=== PATIENT | female | born 1995 | race Caucasian/White ===

== ENCOUNTER 2019-04-07 07:57 | Outpatient (CLI) | payer MEDICAID, SELFPAY ==
--- NOTE | 2019-04-07 08:20 | CT_ITS ---
WS: [id number] CT ABDOMEN AND PELVIS NONCONTRAST HISTORY: LUQ PAIN TECHNIQUE: Imaging performed through the abdomen and pelvis. Coronal and sagittal reformats are submi tted. All CT scans at [facility] use at least one of these dose optimization techniques: automated exposure control; mA and/or kV adjustment per patient size (includes targeted exams where d ose is matched to clinical indication); or iterative reconstruction. DLP: 1185.65 mGycm COMPARISON: None available. Lower thorax: Lung bases are clear. No hiatal hernia. Liver: Normal size liver with mild hepatic steatosis. No bile duct dilatation. Gallbladder: Unremarkable. Pancreas: Normal. Spleen: Normal. Adrenal glands: Normal. Right kidney: Normal size with no stones, masses or atrophy. Left kidney: Normal size with no stones, mass or atrophy. Abdominal aorta and IVC are unremarkable. No free fluid, intraperitoneal air or significant lymphadenopathy. GI tract: Unremarkable. Abdominal wall: Fat-containing umbilical hernia. Pelvis: Normal. Osseous structures: Unremarkable. No fluid or adenopathy. Uterus and ovaries are negative. CT/CT abdomen pelvis wo con [id number] IMPRESSION: 1. No acute abdominal or pelvic abnormalities. 2. Mild hepatic steatosis. 3. No LEFT upper quadrant abnormality.
[2019-04-07] MEDS: iohexol 300 mg/mL 50 mL Btl IV (10:03)
== END 2019-04-07 07:58 | disposition home or self-care (01) ==
LOC: RADWPI 07:59
PROVIDERS: PCP Family Medicine; Visit Provider Family Medicine
DX: K76.0 Fatty (change of) liver, not elsewhere classified (principal); R10.12 Left upper quadrant pain
CPT/HCPCS: 74176

== ENCOUNTER 2019-05-20 18:34 | Emergency (ER) | payer MEDICAID, SELFPAY ==
[2019-05-20 18:38] VITALS: BP 113/92; PULSE 114; RESP 20; TEMP 37.8; O2SAT 99; BMI 52.9
== END 2019-05-20 20:24 | disposition left against medical advice (07) ==
PROVIDERS: Emergency Provider Family Medicine; PCP Family Medicine
DX: R05 Cough (principal); M79.10 Myalgia, unspecified site; R06.02 Shortness of breath; M54.6 Pain in thoracic spine; F17.200 Nicotine dependence, unspecified, uncomplicated; Z53.21 Procedure and treatment not carried out due to patient leaving prior to being seen by health care provider
CPT/HCPCS: 99281

== ENCOUNTER → 2019-06-18 15:25 | Outpatient (BNVA) | payer MEDICAID, SELFPAY | PROVIDERS: PCP Family Medicine; Visit Provider Counselor Professional | DX: F60.3 Borderline personality disorder (principal); F43.12 Post-traumatic stress disorder, chronic | CPT/HCPCS: 90834 ==

== ENCOUNTER → 2019-06-25 08:16 | Outpatient (BNVA) | payer MEDICAID, SELFPAY | PROVIDERS: PCP Family Medicine; Visit Provider Counselor Professional | DX: F60.3 Borderline personality disorder (principal); F43.12 Post-traumatic stress disorder, chronic | CPT/HCPCS: 90834 ==

== ENCOUNTER → 2019-06-29 08:19 | Outpatient (BNVA) | payer MEDICAID, SELFPAY | PROVIDERS: PCP Family Medicine; Visit Provider Nurse Practitioner Psychiatric/Mental Health | DX: F43.12 Post-traumatic stress disorder, chronic (principal); F60.3 Borderline personality disorder; F25.0 Schizoaffective disorder, bipolar type | CPT/HCPCS: 99213 ==

== ENCOUNTER → 2019-07-28 13:28 | Outpatient (BNVA) | payer MEDICAID, SELFPAY | PROVIDERS: PCP Family Medicine; Visit Provider Nurse Practitioner Women's Health | DX: Z32.00 Encounter for pregnancy test, result unknown (principal); N64.4 Mastodynia | CPT/HCPCS: 81025 ==

== ENCOUNTER → 2019-08-10 07:59 | Outpatient (BNVA) | payer MEDICAID, SELFPAY | PROVIDERS: PCP Family Medicine; Visit Provider Nurse Practitioner Psychiatric/Mental Health | DX: F60.3 Borderline personality disorder | CPT/HCPCS: 90834; 99212 ==

== ENCOUNTER → 2019-08-19 08:23 | Outpatient (BNVA) | payer MEDICAID, SELFPAY | PROVIDERS: PCP Family Medicine; Visit Provider Counselor Professional | DX: F60.3 Borderline personality disorder (principal); F43.12 Post-traumatic stress disorder, chronic | CPT/HCPCS: 90834 ==

== ENCOUNTER → 2019-08-31 13:01 | Outpatient (BNVA) | payer MEDICAID, SELFPAY | PROVIDERS: PCP Family Medicine; Visit Provider Nurse Practitioner Psychiatric/Mental Health | DX: F60.3 Borderline personality disorder (principal); F43.12 Post-traumatic stress disorder, chronic; R45.89 Other symptoms and signs involving emotional state | CPT/HCPCS: 99212 ==

== ENCOUNTER → 2019-09-18 08:09 | Outpatient (BNVA) | payer MEDICAID, SELFPAY | PROVIDERS: PCP Family Medicine; Visit Provider Psychiatry & Neurology Psychiatry | DX: F43.12 Post-traumatic stress disorder, chronic (principal); F60.3 Borderline personality disorder; F33.1 Major depressive disorder, recurrent, moderate | CPT/HCPCS: 99214 ==

== ENCOUNTER → 2019-10-05 09:32 | Outpatient (BNVA) | payer MEDICAID, SELFPAY | PROVIDERS: PCP Family Medicine; Visit Provider Obstetrics & Gynecology | DX: Z20.2 Contact with and (suspected) exposure to infections with a predominantly sexual mode of transmission (principal); N39.3 Stress incontinence (female) (male) | CPT/HCPCS: 86592; 87491; 87591; 87806 ==

== ENCOUNTER 2019-11-05 16:09 | Emergency (ER) | payer MEDICAID, SELFPAY ==
[2019-11-05 16:14] VITALS: PULSE 104; RESP 18; TEMP 36.8; O2SAT 95; BMI 51.0
--- NOTE | 2019-11-05 16:37 | ED_ITS ---
HPI - General Adult General: Chief complaint: Abdominal Pain Stated complaint: back/chest pain Time Seen by Provider: 11/05/19 16:31 History of Present Illness: HPI narrative: Patient states she feels much better now. Said no pressure was going on but she had some pain radiating from the her backside to her up to her right breast on the outside. After further conversation patient she was riding a zip line type thing at the park yesterday hanging on that and she felt maybe she pulled something. Onset (ago): hour(s) Radiation: other (Right breast) Severity: mild Severity scale (1-10): 3 Quality: stabbing Pain Consistency: now resolved Relieving factors: none Exacerbating factors: movement Associated symptoms: Reports no associated symptoms; Deny chest pain, dyspnea, headache(s), nausea, rash or vomiting Review of Systems Const: Denies: fever(s), chills or body aches Eyes: Denies: change in vision or blurry vision ENMT: Denies: throat pain or nasal congestion Card: Denies: chest pain or dyspnea on exertion Resp: Denies: dyspnea, productive cough or non-productive cough GI: Denies: abdominal pain, nausea or vomiting Musc: Reports: other (Complains of muscle like pain radiating from the right back around to the right breast area with movement range of motion patient was riding a zip line type contraption yesterday and felt maybe she pulled something says she actually feels better now that she is back in the room here.); Denies: extremity pain Skin/Breast: Denies: rash Neuro: Denies: headache(s) Psych: Denies: anxiety or depression Sonido/Lymph: Denies: easy bruising PFSH ED PFSH: Medical History (Updated 10/05/19 @ 09:34 by Dalton Arambula MD) ADHD Anxiety with depression Breast pain in female Dysphoric mood Genital warts Surgical History (Updated 10/08/19 @ 19:11 by Dalton Arambula MD) No pertinent past surgical history Family History Grandmother Hypertension Maternal grandmother Denies family history of Colon cancer Ovarian cancer Diabetes Heart disease Hyperlipidemia Breast cancer Family history of thyroid problem Uterine cancer Stroke Social History Smoking and tobacco status: current every day smoker cigarettes Packs smoked per day: 0.5 Alcohol intake: current Other details last substance use: Denies drug use. Physical Exam Chest: OTHER: Patient has some muscle wall tenderness from the right below scapula and right side around to the breast area no signs of rash shingles that type thing. Cardio: COMMON NORMALS: regular rate and regular rhythm RATE: regular rate RHYTHM: regular rhythm GI: COMMON NORMALS: Normal to inspection, nondistended, normoactive bowel sounds present (Obese) Course 2 Vital Signs: Vital signs: Vital Signs Temperature 98.2 F 11/05/19 16:14 Pulse Rate 104 H 11/05/19 16:14 Respiratory Rate 18 11/05/19 16:14 Pulse Oximetry 95 11/05/19 16:14 Coding Level of Care Code ED Associate Sales Manager for Eleanor Mcnamara
[2019-11-05] MEDS: HYDROcodone-acetaminophen 5-325 mg Tablet 1 TAB PO (16:42)
[2019-11-05] MEDS: ketorolac 60 mg/2 mL INJ IM (16:45)
[2019-11-05] MEDS: methylPREDNISolone (DEPO) 80 MG/ML INJ 1 mL IM (16:45)
[2019-11-05 17:24] VITALS: BP 109/60; PULSE 75; RESP 16; O2SAT 98
== END 2019-11-05 17:28 | disposition home or self-care (01) ==
PROVIDERS: Emergency Provider Nurse Practitioner Family; PCP Family Medicine
DX: R10.9 Unspecified abdominal pain (principal); F17.210 Nicotine dependence, cigarettes, uncomplicated
CPT/HCPCS: 12345; 96372; 99282; 99283; J1040; J1885

== ENCOUNTER → 2019-11-13 12:40 | Outpatient (BNVA) | payer MEDICAID, SELFPAY | PROVIDERS: PCP Family Medicine; Visit Provider Psychiatry & Neurology Psychiatry | DX: F43.12 Post-traumatic stress disorder, chronic (principal); F60.3 Borderline personality disorder; F33.1 Major depressive disorder, recurrent, moderate | CPT/HCPCS: 99214 ==

== ENCOUNTER → 2019-11-26 07:52 | Outpatient (BNVA) | payer MEDICAID, SELFPAY | PROVIDERS: PCP Family Medicine; Referring Provider Nurse Practitioner Family; Visit Provider Specialist | DX: R56.9 Unspecified convulsions (principal); F17.210 Nicotine dependence, cigarettes, uncomplicated | CPT/HCPCS: 95816 ==

== ENCOUNTER → 2019-12-11 08:25 | Outpatient (BNVA) | payer MEDICAID, SELFPAY | PROVIDERS: PCP Family Medicine; Visit Provider Psychiatry & Neurology Psychiatry | DX: F33.1 Major depressive disorder, recurrent, moderate (principal); F60.3 Borderline personality disorder; F43.12 Post-traumatic stress disorder, chronic | CPT/HCPCS: 99213 ==

== ENCOUNTER → 2019-12-24 08:27 | Outpatient (BNVA) | payer MEDICAID, SELFPAY | PROVIDERS: PCP Family Medicine; Visit Provider Counselor Professional | DX: F33.1 Major depressive disorder, recurrent, moderate (principal); F60.3 Borderline personality disorder; F43.12 Post-traumatic stress disorder, chronic | CPT/HCPCS: 90832 ==

== ENCOUNTER → 2019-12-30 08:59 | Outpatient (BNVA) | payer MEDICAID, SELFPAY | PROVIDERS: PCP Family Medicine; Visit Provider Counselor Professional | DX: F33.1 Major depressive disorder, recurrent, moderate (principal); F60.3 Borderline personality disorder; F43.12 Post-traumatic stress disorder, chronic | CPT/HCPCS: 90834 ==

== ENCOUNTER → 2020-01-06 09:00 | Outpatient (BNVA) | payer MEDICAID, SELFPAY | PROVIDERS: PCP Family Medicine; Visit Provider Counselor Professional | DX: F33.1 Major depressive disorder, recurrent, moderate (principal); F60.3 Borderline personality disorder; F43.12 Post-traumatic stress disorder, chronic | CPT/HCPCS: 90834 ==

== ENCOUNTER → 2020-01-13 08:54 | Outpatient (BNVA) | payer MEDICAID, SELFPAY | PROVIDERS: PCP Family Medicine; Visit Provider Counselor Professional | DX: F33.1 Major depressive disorder, recurrent, moderate (principal); F60.3 Borderline personality disorder; F43.12 Post-traumatic stress disorder, chronic | CPT/HCPCS: 90834 ==

== ENCOUNTER → 2020-02-04 08:01 | Outpatient (BNVA) | payer MEDICAID, SELFPAY | PROVIDERS: PCP Family Medicine; Visit Provider Counselor Professional | DX: F33.1 Major depressive disorder, recurrent, moderate (principal); F60.3 Borderline personality disorder; F43.12 Post-traumatic stress disorder, chronic | CPT/HCPCS: 90832 ==

== ENCOUNTER → 2020-02-17 07:58 | Outpatient (BNVA) | payer MEDICAID, SELFPAY | PROVIDERS: PCP Family Medicine; Visit Provider Counselor Professional | DX: F33.1 Major depressive disorder, recurrent, moderate (principal) | CPT/HCPCS: 90834 ==

== ENCOUNTER → 2020-03-03 07:35 | Outpatient (BNVA) | payer MEDICAID, SELFPAY | PROVIDERS: PCP Family Medicine; Visit Provider Counselor Professional | DX: F33.1 Major depressive disorder, recurrent, moderate (principal); F60.3 Borderline personality disorder; F43.12 Post-traumatic stress disorder, chronic | CPT/HCPCS: 90832 ==

== ENCOUNTER → 2020-03-23 08:12 | Outpatient (BNVA) | payer MEDICAID, SELFPAY | PROVIDERS: PCP Family Medicine; Visit Provider Counselor Professional | DX: F33.1 Major depressive disorder, recurrent, moderate (principal); F60.3 Borderline personality disorder; F43.12 Post-traumatic stress disorder, chronic | CPT/HCPCS: 90834 ==

== ENCOUNTER → 2020-03-31 15:23 | Outpatient (BNVA) | payer MEDICAID, SELFPAY | PROVIDERS: PCP Family Medicine; Visit Provider Counselor Professional | DX: F33.1 Major depressive disorder, recurrent, moderate (principal); F60.3 Borderline personality disorder; F43.12 Post-traumatic stress disorder, chronic | CPT/HCPCS: 90832 ==

== ENCOUNTER → 2020-04-15 08:25 | Outpatient (BNVA) | payer MEDICAID, SELFPAY | PROVIDERS: PCP Family Medicine; Visit Provider Psychiatry & Neurology Psychiatry | DX: F43.12 Post-traumatic stress disorder, chronic (principal); F60.3 Borderline personality disorder; F33.1 Major depressive disorder, recurrent, moderate | CPT/HCPCS: 99214 ==

== ENCOUNTER → 2020-04-20 09:37 | Outpatient (BNVA) | payer MEDICAID, SELFPAY | PROVIDERS: PCP Family Medicine; Visit Provider Counselor Professional | DX: F43.12 Post-traumatic stress disorder, chronic (principal); F60.3 Borderline personality disorder; F33.1 Major depressive disorder, recurrent, moderate | CPT/HCPCS: 90834 ==

== ENCOUNTER → 2020-05-11 09:05 | Outpatient (BNVA) | payer MEDICAID, SELFPAY | PROVIDERS: PCP Family Medicine; Visit Provider Counselor Professional | DX: F43.12 Post-traumatic stress disorder, chronic (principal); F60.3 Borderline personality disorder; F33.1 Major depressive disorder, recurrent, moderate | CPT/HCPCS: 90834 ==

== ENCOUNTER 2020-06-11 19:26 | Emergency (ER) | payer MEDICAID, SELFPAY ==
[2020-06-11 19:40] VITALS: BP 130/90; PULSE 87; RESP 14; TEMP 37.3; O2SAT 97; BMI 51.0
--- NOTE | 2020-06-11 19:51 | W.ED.CHESTPA ---
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 Patient reports drinking very heavily yesterday in which he stopped drinking about midnight. Patient also admits to smoking marijuana. Patient appears intoxicated still. Patient is giggling at the provider. Patient appears in no pain. Patient appears well. Patient states over the last 2 months she has had chest pressure. Patient was concerned that there may be something wrong with her heart. Patient also states that she has been under more stress lately and believes she may have some anxiety that causes this pain. Patient is alert, oriented and cooperative. MD complaint: chest discomfort Review of Systems General: Reports: 10 or more systems reviewed and unremarkable except in HPI and below Card: Reports: chest pain [facility] ED PFSH: Medical History (Updated 06/11/20 @ 21:09 by BRANDYN Spence) ADHD Anxiety with depression Breast pain in female Dysphoric mood Genital warts Surgical History (Updated 10/08/19 @ 19:11 by Dalton Arambula MD) No pertinent past surgical history Family History Grandmother Hypertension Maternal grandmother Denies family history of Colon cancer Ovarian cancer Diabetes Heart disease Hyperlipidemia Breast cancer Family history of thyroid problem Uterine cancer Stroke Social History (Updated 11/13/19 @ 13:13 by Olivier Ray LPN) Smoking and tobacco status: current every day smoker cigarettes Packs smoked per day: 1 Years cigarettes smoked: 4 Quit status (tobacco): has tried quititng Number of times tried to quit tobacco: 2 Second hand smoke exposure: No Smoking risk assessment/counseling performed?: No Alcohol intake: current Other details last substance use: Denies drug use. Female Reproductive History: Date of last menstrual period: 12/18/19 Physical Exam Const: COMMON NORMALS: no acute distress and patient oriented x3 GENERAL APPEARANCE: cooperative HENMT: COMMON NORMALS: normocephalic and Normal external nose present HEAD & SCALP: normal to inspection and normocephalic NOSE: Normal external nose present MOUTH: Normal oral and palatal mucosa present Eye: GENERAL EYE: appearance normal, both eyes and all related structures Neck/C-Spine: COMMON NORMALS: full ROM Chest: COMMONS NORMALS: normal inspection of the chest Resp: COMMON NORMALS: normal respiratory effort EFFORT & INSPECTION: Yes able to speak in complete sentences Cardio: COMMON NORMALS: regular rate and regular rhythm RATE: regular rate RHYTHM: regular rhythm GI: COMMON NORMALS: non-tender Back/Pelvis: COMMON NORMALS: thoracic and lumbar spine normal to inspection Extremity: COMMON NORMALS: normal to inspection Neuro: COMMON NORMALS: patient oriented x3 and moves all extremities Psych: COMMON NORMALS: mental status grossly normal and cooperative Skin: COMMON NORMALS: no rashes or lesions noted GENERAL SKIN EXAM: no rashes or lesions noted Course Vital Signs: Vital signs: Vital Signs Temperature 99.2 F 06/11/20 19:40 Pulse Rate 87 06/11/20 19:40 Respiratory Rate 14 06/11/20 19:40 Blood Pressure 130/90 06/11/20 19:40 Pulse Oximetry 97 06/11/20 19:40 MDM - Chest Pain MDM Narrative: Medical decision making narrative: Patient comes in for concerns of chest discomfort. Patient had become intoxicated last night with heavy drinking and marijuana use. Patient comes in today with complaints of discomfort to her chest. Patient states that she has had this discomfort on and off for the last 2 months. Patient does have a history of major depression and anxiety. Patient appears well. Patient appears mildly dehydrated. Oral mucosa is mildly dry. Abdomen soft nontender. Skin is warm and dry. Differential diagnosis includes not limited to anxiety, atypical chest pain, dehydration, substance abuse. EKG was normal sinus rhythm. Laboratory values were only remarkable for some signs of dehydration with elevation in her platelets and hemoglobin hematocrit. Remainder of labs are unremarkable or normal. Drug screen and alcohol levels were unremarkable except for some marijuana use. Patient was treated with 1 L of IV fluid, 100 mg of thiamine, and 20 mg of famotidine. Patient did report some improvement in discomfort but continued to have some chest pressure. Talked with patient about anxiety and need for follow-up with her behavioral health specialist. Patient has an established care with behavioral health. Reviewed reasons for patient to come return to the emergency department. Patient reported understanding. We will treat abrasions with mupirocin ointment due to patient's history of MRSA. Lab Data: Labs: Lab Results 06/11/20 06/11/20 06/11/20 Range/Units 19:55 19:55 20:33 WBC 13.9 H (4.0-10.0) 10^3/ uL RBC 4.79 (4.1-5.3) 10^6/u L Hgb 12.3 (11.5-15.3) g/dL Hct 39.4 (37.0-47.0) % MCV 82.3 (81-99) fL MCH 25.7 L (28.0-34.0) pg MCHC 31.2 (30.0-36.0) g/dL RDW 15.3 H (12.1-15.1) % Plt Count 416 H (130-400) 10^3/c mm MPV 10.0 (7.4-10.4) fL Neut % (Auto) 66.9 % Lymph % (Auto) 24.5 % [place] % (Auto) 6.6 % Eos % (Auto) 1.1 % Baso % (Auto) 0.4 % Neut # (Auto) 9.27 H (1.8-7.7) 10^3/u L Lymph # (Auto) 3.4 (0.8-4.8) 10^3/u L [place] # (Auto) 0.9 (0.2-0.9) 10^3/u L Eos # (Auto) 0.2 (0.0-0.8) 10^3/u L Baso # (Auto) 0.1 (0.0-0.1) 10^3/u L Nucleated RBC % (a uto) 0 % Nucleated RBCs # 0.0 /100WBC Sodium 137 (136-145) mmol/L Potassium 3.7 (3.5-5.1) mmol/L Chloride 103 (98-107) mmol/L Carbon Dioxide 26 (22-29) mmol/L Anion Gap 11.7 (5-19) BUN 10 (6-20) mg/dL Creatinine 0.6 (0.5-0.9) mg/dL GFR Calculation 123.9 (90-130) mL/min Glucose 88 (65-115) mg/dL Calculated Osmolal ity 282 L (285-295) mOsm/k g Calcium 8.6 (8.5-10.5) mg/dL Total Bilirubin 0.3 (0.15-1.2) mg/dL AST 13 (0-32) U/L ALT 19 (0-33) U/L Alkaline Phosphata se 80 (35-105) IU/L Total Protein 7.6 (6.6-8.7) g/dL Albumin 3.6 (3.5-5.2) g/dL Globulin 4.0 (1.3-4.6) g/dL Urine Color (Yellow) Urine Appearance (CLEAR) Urine pH (5-7) Ur Specific Gravit y (1.005-1.030) Urine Protein (Negative) Urine Glucose (UA) (Normal) Urine Ketones (Negative) Urine Blood (Negative) Urine Nitrate (Negative) Urine Bilirubin (Negative) Urine Urobilinogen (Negative) mg/dL Ur Leukocyte Patito ase (Negative) Urine RBC (0-2) /hpf Urine WBC (0-5) /hpf Ur Squamous Epith Cells (0-5) /hpf Amorphous Sediment Urine Bacteria (NONE) /hpf Hyaline Casts /lpf Urine Mucus /hpf Urine HCG, Qual Negative (Negative) Urine Opiates Scre en (Negative) ng/mL Ur Barbiturates Sc reen (Negative) ng/mL Ur Phencyclidine S crn (Negative) ng/mL Ur Amphetamines Sc reen (Negative) ng/mL U Benzodiazepines Scrn (Negative) ng/mL Urine Cocaine Scre en (Negative) ng/mL U Marijuana (THC) Screen (Negative) ng/mL Ethyl Alcohol < 10 (0-10) mg/dL 06/11/20 06/11/20 Range/Units 20:33 20:33 WBC (4.0-10.0) 10^3/ uL RBC (4.1-5.3) 10^6/u L Hgb (11.5-15.3) g/dL Hct (37.0-47.0) % MCV (81-99) fL MCH (28.0-34.0) pg MCHC (30.0-36.0) g/dL RDW (12.1-15.1) % Plt Count (130-400) 10^3/c mm MPV (7.4-10.4) fL Neut % (Auto) % Lymph % (Auto) % [place] % (Auto) % Eos % (Auto) % Baso % (Auto) % Neut # (Auto) (1.8-7.7) 10^3/u L Lymph # (Auto) (0.8-4.8) 10^3/u L [place] # (Auto) (0.2-0.9) 10^3/u L Eos # (Auto) (0.0-0.8) 10^3/u L Baso # (Auto) (0.0-0.1) 10^3/u L Nucleated RBC % (a uto) % Nucleated RBCs # /100WBC Sodium (136-145) mmol/L Potassium (3.5-5.1) mmol/L Chloride (98-107) mmol/L Carbon Dioxide (22-29) mmol/L Anion Gap (5-19) BUN (6-20) mg/dL Creatinine (0.5-0.9) mg/dL GFR Calculation (90-130) mL/min Glucose (65-115) mg/dL Calculated Osmolal ity (285-295) mOsm/k g Calcium (8.5-10.5) mg/dL Total Bilirubin (0.15-1.2) mg/dL AST (0-32) U/L ALT (0-33) U/L Alkaline Phosphata se (35-105) IU/L Total Protein (6.6-8.7) g/dL Albumin (3.5-5.2) g/dL Globulin (1.3-4.6) g/dL Urine Color Yellow (Yellow) Urine Appearance Clear (CLEAR) Urine pH 7.5 (5-7) Ur Specific Gravit y 1.010 (1.005-1.030) Urine Protein Neg (Negative) Urine Glucose (UA) Norm (Normal) Urine Ketones Negative (Negative) Urine Blood Neg (Negative) Urine Nitrate Negative (Negative) Urine Bilirubin 1+ H (Negative) Urine Urobilinogen 4 H (Negative) mg/dL Ur Leukocyte Patito ase Trace H (Negative) Urine RBC None (0-2) /hpf Urine WBC 5-10 H (0-5) /hpf Ur Squamous Epith Cells 15-25 H (0-5) /hpf Amorphous Sediment Not Reportable Urine Bacteria 1+ H (NONE) /hpf Hyaline Casts 0-4 H /lpf Urine Mucus Trace /hpf Urine HCG, Qual (Negative) Urine Opiates Scre en Negative (Negative) ng/mL Ur Barbiturates Sc reen Negative (Negative) ng/mL Ur Phencyclidine S crn Negative (Negative) ng/mL Ur Amphetamines Sc reen Negative (Negative) ng/mL U Benzodiazepines Scrn Negative (Negative) ng/mL Urine Cocaine Scre en Negative (Negative) ng/mL U Marijuana (THC) Screen Positive H (Negative) ng/mL Ethyl Alcohol (0-10) mg/dL EKG Data^: EKG 1: Attestation: I personally reviewed and interpreted this EKG as follows: (1939, EKG shows normal sinus rhythm with a regular rate at 89 bpm. No ectopy, no ST elevation is noted. No prior exam is available for comparison.) Discharge Plan Discharge Patient Disposition: Home Clinical Impression: Atypical chest pain, Anxiety, Dehydration Abrasion of anterior lower leg Qualifiers: Encounter type: initial encounter Laterality: left Qualified Code(s): S80.812A - Abrasion, left lower leg, initial encounter Condition: Stable Prescriptions: New mupirocin 2 % ointment 1 applic topical BID Qty: 22 RF: 0 No Action fluoxetine [Prozac] 10 mg capsule 10 mg PO DAILY Qty: 30 RF: 2 tramadol 50 mg tablet 50 mg PO Q6H PRN (Reason: pain) Qty: 7 RF: 0 Discharge Orders: Discharge ED (Routine); Ordered 06/11/20 Ordered By: Carlos Renteria Referrals: Shahbaz Birmingham MD [Primary Care Provider] - Discharge Diet: Usual diet Discharge Activity: Increase activity as tolerated Patient Instructions: Dehydration (ED), Opioid Safety Activity Restrictions/Additional Instructions: Activity as tolerated. Drink plenty of water. Continue for medications as directed. Follow-up with primary care for further treatment. Return to the emergency department for new concerns. Coding Level of Care Code ED Home Office Representative for Eleanor Fwd Exam Comprehensive
[2020-06-11] MEDS: famotidine 20 mg/2 mL INJ IVP (19:59)
[2020-06-11] MEDS: sodium chloride 0.9% 1,000 ML 999 ML IV (20:00)
[2020-06-11 20:11] LABS: Basophils # 0.1 10^3/uL (0.0-0.1); Basophils % 0.4 %; Eosinophils # 0.2 10^3/uL (0.0-0.8); Eosinophils % 1.1 %; Hematocrit 39.4 % (37.0-47.0); Hemoglobin 12.3 g/dL (11.5-15.3); Lymphocytes # 3.4 10^3/uL (0.8-4.8); Lymphocytes % 24.5 %; Mean Corpuscular HGB Conc 31.2 g/dL (30.0-36.0); Mean Corpuscular Hemoglobin 25.7 pg (28.0-34.0); Mean Corpuscular Volume 82.3 fL (81-99); Monocytes # 0.9 10^3/uL (0.2-0.9); Monocytes % 6.6 %; Neutrophils # 9.27 10^3/uL (1.8-7.7); Neutrophils % 66.9 %; Nucleated Red Blood Cells % 0 %; Platelet Count 416 10^3/cmm (130-400); Red Blood Count 4.79 10^6/uL (4.1-5.3); Red Cell Distribution Width 15.3 % (12.1-15.1); White Blood Count 13.9 10^3/uL (4.0-10.0)
[2020-06-11 20:34] LABS: Alanine Aminotransferase 19 U/L (0-33); Albumin Level 3.6 g/dL (3.5-5.2); Alkaline Phosphatase 80 IU/L (35-105); Anion Gap 11.7 (5-19); Aspartate Amino Transferase 13 U/L (0-32); Blood Urea Nitrogen 10 mg/dL (6-20); Calcium 8.6 mg/dL (8.5-10.5); Carbon Dioxide 26 mmol/L (22-29); Chloride 103 mmol/L (98-107); Glomerular Filtration Rate 123.9 mL/min (90-130); Glucose 88 mg/dL (65-115); Osmolality Calculated 282 mOsm/kg (285-295); Potassium 3.7 mmol/L (3.5-5.1); Sodium 137 mmol/L (136-145); Total Bilirubin 0.3 mg/dL (0.15-1.2); Total Protein 7.6 g/dL (6.6-8.7)
[2020-06-11 20:42] LABS: Alcohol Level < 10 mg/dL (0-10)
[2020-06-11 20:45] LABS: Add Urine Culture? No; Add Urine Microscopic? YES; Bacteria Urine 1+ /hpf; Bilirubin Urine 1+ (Negative); Blood Urine Neg (Negative); Glucose Urine UA Norm (Normal); Hyaline Casts Urine 0-4 /lpf; Ketones Urine Negative (Negative); Leukocyte Esterase Urine Trace (Negative); Mucus Urine TRACE /hpf; Nitrate Urine Negative (Negative); Protein Urine Neg (Negative); Squamous Epithelial Cell Urine 15-25 /hpf (0-5); Urine Appearance Clear (CLEAR); Urine Color Yellow (Yellow); Urobilinogen Urine 4 mg/dL (Negative); pH Urine 7.5 (5-7)
[2020-06-11 20:46] LABS: Amphetamines Screen Urine Negative (Negative); Barbiturates Screen Urine Negative (Negative); Benzodiazepines Screen Urine Negative (Negative); Cocaine Screen Urine Negative (Negative); Opiate Screen Urine Negative (Negative); PCP Screen Urine Negative (Negative); THC Screen Urine Positive (Negative)
[2020-06-11] MEDS: mupirocin oint 22 gm 1 APPLIC TOPICAL (21:27)
[2020-06-11 21:32] VITALS: BP 127/89; PULSE 82; RESP 17; O2SAT 99
== END 2020-06-11 21:32 | disposition home or self-care (01) ==
PROVIDERS: Emergency Provider Nurse Practitioner Family; PCP Family Medicine
DX: R07.89 Other chest pain (principal); F41.9 Anxiety disorder, unspecified; E86.0 Dehydration; S80.812A Abrasion, left lower leg, initial encounter; F17.210 Nicotine dependence, cigarettes, uncomplicated; X58.XXXA Exposure to other specified factors, initial encounter
CPT/HCPCS: 80053; 80306; 80307; 81001; 81025; 85025; 96361; 96374; 96375; 99284; J3411; J3490; J7030

== ENCOUNTER 2020-06-12 15:05 | Emergency (ER) | payer MEDICAID, SELFPAY ==
[2020-06-12 15:11] VITALS: BP 120/78; PULSE 85; RESP 17; TEMP 36.8; O2SAT 96; BMI 51.0
--- NOTE | 2020-06-12 16:03 | XRR_ITS ---
PROCEDURE INFORMATION: Exam: XR Left Hip Exam date and time: 06/12/2020 4:35 PM Age: 25 years old Clinical indication: Injury or trauma; Fall; Blunt trauma (contusions or hematomas); Left; Hip; Additional info: Fall/pain TECHNIQUE: Imaging protocol: XR Left hip. Views: 2 or 3 views hip with pelvis when performed. COMPARISON: CT abdomen pelvis wo con [id number] 04/07/2019 9:57 AM FINDINGS: Bones/joints: Unremarkable. No acute fracture. Soft tissues: Unremarkable. XR/XR hip LT 2-3V wo/w pel* [id number] IMPRESSION: No acute findings.
--- NOTE | 2020-06-12 16:03 | W.ED.FALL ---
HPI - Fall General: Chief Complaint: Fall Stated Complaint: LEFT LEG PAIN Time Seen by Provider: 06/12/20 15:59 Source: patient Mode of arrival: EMS Limitations: no limitations History of Present Illness: HPI Narrative: Patient is a 25-year-old female who presents to ED today for evaluation of left leg pain. Patient tells me she accidentally fell 2 days ago and landed onto her left knee. She is having pain to the knee which radiates up into her hip. Patient was seen here yesterday for a separate complaint. No other injury sustained during her fall. She sustained abrasions to the anterior aspect of her left ankle and left knee. Patient is ambulatory without assistance. complaint: fall Onset (ago): day(s) Fall from: standing Fall witnessed: yes, by bystander Place fall occurred: home Loss of consciousness: None Prolonged down time: no Symptoms prior to fall: none Context: tripped/slipped Location of injury - extremities: Left: thigh and knee Associated symptoms-after fall: Reports no associated symptoms; Denies abdominal pain, chest pain or neck pain Review of Systems Const: Denies: fever(s) or chills Eyes: Denies: change in vision, blurry vision or photophobia Card: Denies: chest pain Resp: Denies: dyspnea GI: Denies: abdominal pain, nausea or vomiting : Denies: flank pain or dysuria Musc: Reports: joint pain (L knee/L hip); Denies: neck pain, back pain or joint swelling Skin/Breast: Reports: other (abrasions) Neuro: Denies: numbness in extremities, weakness in extremities or sensory changes PFS ED PFSH: Medical History (Updated 06/12/20 @ 16:55 by CAROL ANN Jara) ADHD Anxiety with depression Breast pain in female Dysphoric mood Genital warts Surgical History (Updated 10/08/19 @ 19:11 by Dalton Arambula MD) No pertinent past surgical history Family History Grandmother Hypertension Maternal grandmother Denies family history of Colon cancer Ovarian cancer Diabetes Heart disease Hyperlipidemia Breast cancer Family history of thyroid problem Uterine cancer Stroke Social History (Updated 11/13/19 @ 13:13 by Olivier Ray LPN) Smoking and tobacco status: current every day smoker cigarettes Packs smoked per day: 1 Years cigarettes smoked: 4 Quit status (tobacco): has tried quititng Number of times tried to quit tobacco: 2 Second hand smoke exposure: No Smoking risk assessment/counseling performed?: No Alcohol intake: current Other details last substance use: Denies drug use. Female Reproductive History: Date of last menstrual period: 12/18/19 Physical Exam Const: COMMON NORMALS: no acute distress, patient oriented x3, no limitations and alert GENERAL APPEARANCE: cooperative NUTRITIONAL APPEARANCE: obese morbidly obese (BMI of 51.0) ORIENTATION/CONSCIOUSNESS: Yes awake, Yes oriented to person, Yes oriented to place and Yes oriented to time HENMT: COMMON NORMALS: normocephalic and atraumatic HEAD & SCALP: normocephalic and atraumatic Neck/C-Spine: COMMON NORMALS: full ROM CERVICAL SPINE: Yes cervical ROM normal, No pain with cervical ROM, No Cervical spine tenderness and No Paracervical muscle tenderness Back/Pelvis: COMMON NORMALS: thoracic and lumbar spine normal to inspection, no thoracic nor lumbar tenderness and thoraco-lumbar ROM normal Extremity: NARRATIVE EXTREMITY EXAM: abrasions to L anterior ankle-full painless ROM; anterior abrasions to L knee-tender to palpation; extremity NV intact Neuro: COMMON NORMALS: patient oriented x3, moves all extremities, no focal motor deficits and no sensory deficits noted SENSORIUM/ORIENTATION: Yes alert, Yes oriented to person, Yes oriented to place and Yes oriented to time Skin: NARRATIVE SKIN EXAM: see extremity assessment-otherwise normal exam Course Vital Signs: Vital signs: Vital Signs Temperature 98.2 F 06/12/20 15:11 Pulse Rate 85 06/12/20 15:11 Respiratory Rate 17 06/12/20 15:11 Blood Pressure 120/78 06/12/20 15:11 Pulse Oximetry 96 06/12/20 15:11 MDM - Fall Imaging Data^: XR L knee: Radiologist's impression: [facility] [address] [place] [address] XRay Report Signed Patient: Bryant Tony Unit #: [id number] : 1995 Age/Sex: 25 / F ADM Date: 06/12/20 Loc: ER Room/Bed: Attending Dr: Ordering Provider/Ordering MD: Cielo Díaz Date of Service: 06/12/20 Procedure(s): XR knee LT 3V* [id number] Accession Number(s): [id number] Report Number: [id number] PROCEDURE INFORMATION: Exam: XR Left Knee Exam date and time: 06/12/2020 4:35 PM Age: 25 years old Clinical indication: Injury or trauma; Fall; Blunt trauma; Knee; Left; Additional info: Fall/pain TECHNIQUE: Imaging protocol: XR Left knee. Views: 3 views. COMPARISON: No relevant prior studies available. FINDINGS: Bones/joints: Normal. Soft tissues: Normal. XR/XR knee LT 3V* [id number] IMPRESSION: No acute findings. Dictated By: Efraín Peterson Signed By: Efraín Peterson Signed Date/Time: 06/12/201658 DD/ 57 XR L hip: Radiologist's impression: [address] [address] XRay Report Signed Patient: Bryant Tony Unit #: [id number] : 1995 Age/Sex: 25 / F ADM Date: 06/12/20 Loc: ER Room/Bed: Attending Dr: Ordering Provider/Ordering MD: Cielo Díaz Date of Service: 06/12/20 Procedure(s): XR hip LT 2-3V wo/w pel* [id number] Accession Number(s): [id number] Report Number: [id number] PROCEDURE INFORMATION: Exam: XR Left Hip Exam date and time: 06/12/2020 4:35 PM Age: 25 years old Clinical indication: Injury or trauma; Fall; Blunt trauma (contusions or hematomas); Left; Hip; Additional info: Fall/pain TECHNIQUE: Imaging protocol: XR Left hip. Views: 2 or 3 views hip with pelvis when performed. COMPARISON: CT abdomen pelvis wo con [id number] 04/07/2019 9:57 AM FINDINGS: Bones/joints: Unremarkable. No acute fracture. Soft tissues: Unremarkable. XR/XR hip LT 2-3V wo/w pel* [id number] IMPRESSION: No acute findings. Dictated By: Efraín Peterson Signed By: Efraín Peterson Signed Date/Time: 06/12/201658 DD/ 57 Discharge Plan Discharge Patient Disposition: Home Clinical Impression: Acute pain of left knee, Acute pain of left hip Fall Qualifiers: Encounter type: initial encounter Qualified Code(s): W19.XXXA - Unspecified fall, initial encounter Condition: Stable Prescriptions: No Action fluoxetine [Prozac] 10 mg capsule 10 mg PO DAILY Qty: 30 RF: 2 mupirocin 2 % ointment 1 applic topical BID Qty: 22 RF: 0 tramadol 50 mg tablet 50 mg PO Q6H PRN (Reason: pain) Qty: 7 RF: 0 Discharge Orders: Discharge ED (Routine); Ordered 06/12/20 Ordered By: Cielo Díaz Referrals: Shahbaz Birmingham MD [Primary Care Provider] - Patient Instructions: Knee Sprain (ED), RICE Therapy (ED) Coding Level of Care Code ED Restoration Officer for Chg Fwd Exam Detailed
== END 2020-06-12 17:27 | disposition home or self-care (01) ==
PROVIDERS: Emergency Provider Physician Assistant; PCP Family Medicine
DX: M25.562 Pain in left knee (principal); M25.552 Pain in left hip; F17.210 Nicotine dependence, cigarettes, uncomplicated
CPT/HCPCS: 73502; 73562; 99283; E0114

== ENCOUNTER → 2020-06-22 09:06 | Outpatient (BNVA) | payer MEDICAID, SELFPAY | PROVIDERS: PCP Family Medicine; Visit Provider Counselor Professional | DX: F43.12 Post-traumatic stress disorder, chronic (principal); F60.3 Borderline personality disorder; F33.1 Major depressive disorder, recurrent, moderate | CPT/HCPCS: 90834 ==

== ENCOUNTER → 2020-06-28 08:37 | Outpatient (BNVA) | payer MEDICAID, SELFPAY | PROVIDERS: PCP Family Medicine; Visit Provider Counselor Professional | DX: F43.12 Post-traumatic stress disorder, chronic (principal); F60.3 Borderline personality disorder; F33.1 Major depressive disorder, recurrent, moderate | CPT/HCPCS: 90834 ==

== ENCOUNTER → 2020-07-26 08:20 | Outpatient (BNVA) | payer MEDICAID, SELFPAY | PROVIDERS: PCP Family Medicine; Visit Provider Counselor Professional | DX: F43.12 Post-traumatic stress disorder, chronic (principal); F60.3 Borderline personality disorder; F33.1 Major depressive disorder, recurrent, moderate | CPT/HCPCS: 90832 ==

== ENCOUNTER → 2020-08-10 12:42 | Outpatient (BNVA) | payer MEDICAID, SELFPAY | PROVIDERS: PCP Family Medicine; Visit Provider Counselor Professional | DX: F43.12 Post-traumatic stress disorder, chronic (principal); F60.3 Borderline personality disorder; F33.1 Major depressive disorder, recurrent, moderate | CPT/HCPCS: 90834 ==

== ENCOUNTER → 2020-10-04 11:02 | Outpatient (BNVA) | payer MEDICAID, SELFPAY | PROVIDERS: PCP Family Medicine; Visit Provider Psychiatry & Neurology Psychiatry | DX: F33.1 Major depressive disorder, recurrent, moderate (principal); F60.3 Borderline personality disorder; F43.12 Post-traumatic stress disorder, chronic | CPT/HCPCS: 99214 ==

== ENCOUNTER → 2020-10-12 07:28 | Outpatient (BNVA) | payer MEDICAID, SELFPAY | PROVIDERS: PCP Family Medicine; Visit Provider Counselor Professional | DX: F33.1 Major depressive disorder, recurrent, moderate (principal); F43.12 Post-traumatic stress disorder, chronic; F60.3 Borderline personality disorder | CPT/HCPCS: 90834; 90846 ==

== ENCOUNTER → 2020-12-13 07:57 | Outpatient (BNVA) | payer MEDICAID, SELFPAY | PROVIDERS: PCP Family Medicine; Visit Provider Counselor Professional | DX: F33.1 Major depressive disorder, recurrent, moderate (principal); F60.3 Borderline personality disorder; F43.12 Post-traumatic stress disorder, chronic | CPT/HCPCS: 90834 ==

== ENCOUNTER → 2020-12-21 08:29 | Outpatient (BNVA) | payer MEDICAID, SELFPAY | PROVIDERS: PCP Family Medicine; Visit Provider Counselor Professional | DX: F33.1 Major depressive disorder, recurrent, moderate (principal); F60.3 Borderline personality disorder; F43.12 Post-traumatic stress disorder, chronic | CPT/HCPCS: 90834 ==

== ENCOUNTER → 2020-12-26 08:29 | Outpatient (BNVA) | payer MEDICAID, SELFPAY | PROVIDERS: PCP Family Medicine; Visit Provider Counselor Professional | DX: F33.1 Major depressive disorder, recurrent, moderate (principal); F60.3 Borderline personality disorder; F43.12 Post-traumatic stress disorder, chronic | CPT/HCPCS: 90834 ==

== ENCOUNTER 2020-12-28 20:00 | Outpatient (CLI) | payer MEDICAID, SELFPAY | END 2020-12-28 20:01 | disposition home or self-care (01) | LOC: SLEEP 12-29 08:20 | PROVIDERS: PCP Family Medicine; Visit Provider Nurse Practitioner Family | DX: G47.10 Hypersomnia, unspecified (principal); R06.83 Snoring; R53.83 Other fatigue; G47.33 Obstructive sleep apnea (adult) (pediatric) | CPT/HCPCS: 95810 ==

== ENCOUNTER → 2021-01-03 08:25 | Outpatient (BNVA) | payer MEDICAID, SELFPAY | PROVIDERS: PCP Family Medicine; Visit Provider Counselor Professional | DX: F33.1 Major depressive disorder, recurrent, moderate (principal); F60.3 Borderline personality disorder; F43.12 Post-traumatic stress disorder, chronic | CPT/HCPCS: 90834 ==

== ENCOUNTER → 2021-01-12 08:26 | Outpatient (BNVA) | payer MEDICAID, SELFPAY | PROVIDERS: PCP Family Medicine; Visit Provider Counselor Professional | DX: F33.1 Major depressive disorder, recurrent, moderate (principal); F60.3 Borderline personality disorder; F43.12 Post-traumatic stress disorder, chronic | CPT/HCPCS: 90832; 90834 ==

== ENCOUNTER → 2021-01-20 08:21 | Outpatient (BNVA) | payer MEDICAID, SELFPAY | PROVIDERS: PCP Family Medicine; Visit Provider Psychiatry & Neurology Psychiatry | DX: F60.3 Borderline personality disorder (principal); F43.12 Post-traumatic stress disorder, chronic; F33.1 Major depressive disorder, recurrent, moderate | CPT/HCPCS: 99214 ==

== ENCOUNTER 2021-01-25 20:17 | Emergency (ER) | payer MEDICAID, SELFPAY ==
[2021-01-25 21:04] VITALS: BP 126/85; PULSE 92; RESP 18; TEMP 37.1; O2SAT 97; BMI 45.7
--- NOTE | 2021-01-25 21:11 | XRR_ITS ---
PROCEDURE INFORMATION: Exam: XR Right Finger(s) Exam date and time: 01/25/2021 9:11 PM Age: 26 years old Clinical indication: Pain; Finger(s); Right; Additional info: Injury TECHNIQUE: Imaging protocol: XR Right fingers. Views: Minimum 2 views. COMPARISON: No relevant prior studies available. FINDINGS: Bones/joints: Normal. Soft tissues: Normal. XR/XR finger RT min 2V [id number] IMPRESSION: No acute findings. Radiation Dose CTDIVOL = (mGy): DLP = (mGy-cm)
--- NOTE | 2021-01-25 22:42 | W.ED.EXTPRO ---
HPI - Extremity Problem General: Chief complaint: Extremity Injury, Upper Stated complaint: Pain on RT middle finger Time Seen by Provider: 01/25/21 22:42 History of Present Illness: HPI Narrative: 26-year-old female comes in with injury to the right middle finger. Patient accidentally shut her finger in a door. Patient has swelling and bruising to the distal part of the finger. Patient appears well. Patient appears no acute distress. Review of Systems General: Reports: 10 or more systems reviewed and unremarkable except in HPI and below Musc: Reports: other (Right middle finger injury) PFS ED PFSH: Medical History (Updated 01/25/21 @ 22:49 by BRANDYN Spence) ADHD Anxiety with depression Breast pain in female Dysphoric mood Genital warts Psychiatric care Surgical History (Updated 10/08/19 @ 19:11 by Dalton Arambula MD) No pertinent past surgical history Family History Grandmother Hypertension Maternal grandmother Denies family history of Colon cancer Ovarian cancer Diabetes Heart disease Hyperlipidemia Breast cancer Family history of thyroid problem Uterine cancer Stroke Social History (Updated 10/04/20 @ 11:20 by Olivier Ray LPN) Smoking and tobacco status: current every day smoker cigarettes Packs smoked per day: 1 Years cigarettes smoked: 4 and e-cigarettes E-Cigarette Details: vaporizer device and with nicotine E-cig/vape details: 5 % Quit status (tobacco): has tried quititng Number of times tried to quit tobacco: 2 Second hand smoke exposure: No Smoking risk assessment/counseling performed?: No Alcohol intake: current Other details last substance use: Denies drug use. Female Reproductive History: Date of last menstrual period: 12/18/19 Physical Exam Const: COMMON NORMALS: no acute distress and patient oriented x3 GENERAL APPEARANCE: cooperative HENMT: COMMON NORMALS: normocephalic HEAD & SCALP: normal to inspection and normocephalic Eye: GENERAL EYE: appearance normal, both eyes and all related structures Neck/C-Spine: COMMON NORMALS: full ROM Chest: COMMONS NORMALS: normal inspection of the chest Resp: COMMON NORMALS: normal respiratory effort EFFORT & INSPECTION: Yes able to speak in complete sentences Cardio: COMMON NORMALS: regular rate and regular rhythm RATE: regular rate RHYTHM: regular rhythm GI: COMMON NORMALS: non-tender Extremity: NARRATIVE EXTREMITY EXAM: Some bruising and swelling is noted to the distal right middle finger with heavy nail damage. Range of motion is normal. Neuro: COMMON NORMALS: patient oriented x3 and moves all extremities Psych: COMMON NORMALS: mental status grossly normal and cooperative Skin: COMMON NORMALS: no rashes or lesions noted GENERAL SKIN EXAM: no rashes or lesions noted Course Vital Signs: Vital signs: Vital Signs Temperature 98.7 F 01/25/21 21:04 Pulse Rate 92 01/25/21 21:04 Respiratory Rate 18 01/25/21 22:55 Blood Pressure 126/85 01/25/21 21:04 Pulse Oximetry 97 01/25/21 21:04 MDM - Extremity (Nontraumatic) MDM Narrative: Medical decision making narrative: 26-year-old female comes in today for injury to the right middle finger. On exam we note some ecchymosis and swelling to the distal part of the right middle finger. Patient has normal function. Differential diagnosis includes contusion, fracture, sprain. X-ray noted no abnormality. Reviewed exam with patient with recommendations for treatment and follow-up. Patient reported understanding. Discharge Plan Discharge Patient Disposition: Home Clinical Impression: Contusion of finger of right hand Qualifiers: Encounter type: initial encounter Finger: middle finger Damage to nail status: without damage Qualified Code(s): S60.031A - Contusion of right middle finger without damage to nail, initial encounter Condition: Stable Prescriptions: No Action fluoxetine [Prozac] 40 mg capsule 40 mg PO DAILY Qty: 30 RF: 2 trazodone 50 mg tablet 100 mg PO .HS PRN (Reason: insomnia) Qty: 60 RF: 2 mupirocin 2 % ointment 1 applic topical BID Qty: 22 RF: 0 tramadol 50 mg tablet 50 mg PO Q6H PRN (Reason: pain) Qty: 7 RF: 0 Discharge Orders: Discharge ED (Routine); Ordered 01/25/21 Ordered By: Carlos Renteria Discharge Diet: Usual diet Discharge Activity: Increase activity as tolerated Patient Instructions: Finger Sprain (ED), Opioid Safety Activity Restrictions/Additional Instructions: Activity as tolerated. Ice packs to the finger as directed. Active take acetaminophen and ibuprofen for pain. Follow-up with primary care for further instruction. Coding Level of Care Code ED Plating Tank Operator Apprentice for [facility] Mcnam[facility]
[2021-01-25 22:55] VITALS: RESP 18
== END 2021-01-25 22:55 | disposition home or self-care (01) ==
PROVIDERS: Emergency Provider Nurse Practitioner Family
DX: S60.031A Contusion of right middle finger without damage to nail, initial encounter (principal); W23.0XXA Caught, crushed, jammed, or pinched between moving objects, initial encounter; F17.210 Nicotine dependence, cigarettes, uncomplicated; F17.290 Nicotine dependence, other tobacco product, uncomplicated
CPT/HCPCS: 73140; 99281

== ENCOUNTER → 2021-01-26 08:16 | Outpatient (BNVA) | payer MEDICAID, SELFPAY | PROVIDERS: PCP Family Medicine; Visit Provider Counselor Professional | DX: F60.3 Borderline personality disorder (principal); F43.12 Post-traumatic stress disorder, chronic; F33.1 Major depressive disorder, recurrent, moderate | CPT/HCPCS: 90834 ==

== ENCOUNTER → 2021-02-02 07:33 | Outpatient (BNVA) | payer MEDICAID, SELFPAY | PROVIDERS: PCP Family Medicine; Visit Provider Counselor Professional | DX: F60.3 Borderline personality disorder (principal); F43.12 Post-traumatic stress disorder, chronic; F33.1 Major depressive disorder, recurrent, moderate | CPT/HCPCS: 90834 ==

== ENCOUNTER → 2021-03-01 07:42 | Outpatient (BNVA) | payer MEDICAID, SELFPAY | PROVIDERS: PCP Family Medicine; Visit Provider Counselor Professional | DX: F60.3 Borderline personality disorder (principal); F43.12 Post-traumatic stress disorder, chronic; F33.1 Major depressive disorder, recurrent, moderate | CPT/HCPCS: 90832 ==

== ENCOUNTER → 2021-03-13 13:37 | Outpatient (BNVA) | payer MEDICAID, SELFPAY | PROVIDERS: PCP Family Medicine; Visit Provider Counselor Professional | DX: F60.3 Borderline personality disorder (principal); F43.12 Post-traumatic stress disorder, chronic; F33.1 Major depressive disorder, recurrent, moderate | CPT/HCPCS: 90832 ==

== ENCOUNTER 2022-03-14 11:10 | Emergency (ER) | payer MEDICAID, SELFPAY ==
[2022-03-14 12:02] VITALS: BP 127/86; PULSE 98; RESP 14; TEMP 36.7; O2SAT 97
--- NOTE | 2022-03-14 12:31 | ED_ITS ---
HPI - Allergic Reaction General: Chief complaint: Allergic Reaction Stated complaint: allergic reaction Time Seen by Provider: 03/14/22 12:31 History of Present Illness: HPI narrative: 27-year-old female presenting to the emergency department with various concerns. She reports hives with unknown exposure earlier today that have subsequently improved. No signs of anaphylaxis or systemic involvement. No new known environmental exposures or new medications. Additionally she endorses 3-week history of sore throat and intermittent fevers. Intensity symptoms is moderate to severe. Course has persisted. No other specific changes in health, exacerbating, or alleviating factors identified. Onset (ago): hour(s) Exposure: unknown Associated symptoms: Reports itching and rash Severity: moderate Treatment prior to arrival: benadryl Previous Allergic Reaction History: none Review of Systems General: Reports: 10 or more systems reviewed and unremarkable except in HPI and below ENMT: Denies: uvular edema [facility] ED PFSH: Medical History ADHD Anxiety with depression Breast pain in female Dysphoric mood Genital warts Psychiatric care Surgical History No pertinent past surgical history Family History Grandmother Hypertension Maternal grandmother Denies family history of Colon cancer Ovarian cancer Diabetes Heart disease Hyperlipidemia Breast cancer Family history of thyroid problem Uterine cancer Stroke Social History Smoking and tobacco status: current every day smoker cigarettes Packs smoked per day: 1 Years cigarettes smoked: 4 and e-cigarettes E-Cigarette Details: vaporizer device and with nicotine E-cig/vape details: 5 % Quit status (tobacco): has tried quititng Number of times tried to quit tobacco: 2 Second hand smoke exposure: No Smoking risk assessment/counseling performed?: No Alcohol intake: current Other details last substance use: Denies drug use. Female Reproductive History: Date of last menstrual period: 12/18/19 Physical Exam Const: COMMON NORMALS: alert GENERAL APPEARANCE: cooperative and well developed HENMT: COMMON NORMALS: normocephalic and atraumatic HEAD & SCALP: normocephalic and atraumatic THROAT: posterior oropharynx normal and uvula midline; no uvular edema Eye: COMMON NORMALS: conjunctivae normal CONJUNCTIVA: Yes conjunctivae normal SCLERA: sclerae normal Neck/C-Spine: COMMON NORMALS: supple GENERAL: Yes trachea midline Resp: COMMON NORMALS: clear to auscultation bilaterally EFFORT & INSPECTION: Yes able to speak in complete sentences AUSCULTATION: clear to auscultation bilaterally Cardio: COMMON NORMALS: regular rate and regular rhythm RATE: regular rate RHYTHM: regular rhythm GI: COMMON NORMALS: Soft to palpation PALPATION: Yes Soft to palpation and No Tenderness to palpation present (GI) Extremity: GENERAL: Yes normal exam except as noted and No edema Neuro: COMMON NORMALS: moves all extremities SENSORIUM/ORIENTATION: Yes alert and No Orientation impaired Psych: COMMON NORMALS: mental status grossly normal and Normal thought process present THOUGHT PROCESS: Normal thought process present Skin: NARRATIVE SKIN EXAM: Mild hives Course Vital Signs: Vital signs: Vital Signs Temperature 98.1 F 03/14/22 12:02 Pulse Rate 90 03/14/22 12:52 Respiratory Rate 16 03/14/22 12:52 Blood Pressure 127/83 03/14/22 12:52 Pulse Oximetry 96 03/14/22 12:52 Oxygen Delivery Me thod 03/14/22 12:52 MDM - Allergic Reaction Medical Decision Making 27-year-old lady presenting with various concerns though endorses itchy rash which is largely resolved. Exam as above. There is no evidence of anaphylaxis. Patient is nontoxic and tolerating oral intake. Patient given prednisone and Pepcid, previously taking Benadryl. Given largely resolved symptoms patient does not require prolonged observation. The emergency department and satisfactory for outpatient management of possible reaction. The results of ED evaluation were discussed with the patient including prescriptions and/or symptomatic cares (if applicable) including appropriate and responsible use, followup plan, and return precautions. The patient verbalized understanding and felt safe for discharge. Medical Records I reviewed the patient's medical records. Lab Data I reviewed the patient's lab results. Laboratory Results HCG, Qual Negative (Negative) 03/14/22 12:57 Discharge Plan Discharge Patient Disposition: Home Clinical Impression: Allergic reaction, Urticaria, Pharyngitis Condition: Stable Prescriptions: No Action ciprofloxacin HCl 500 mg tablet 500 mg PO BID Qty: 20 0RF Discharge Orders: Discharge ED (Routine); Ordered 03/14/22 Ordered By: Olivier Frausto Referrals: Shahbaz Birmingham MD [Primary Care Provider] - Discharge Diet: Usual diet Discharge Activity: Resume usual activity Activity Restrictions/Additional Instructions: Thank you for visiting the emergency department. You were seen and evaluated for various concerns. Based on description of symptoms he likely had an allergic reaction which has improved. This will be treated with steroids and Pepcid, you may also use Benadryl per packaging directions. You may use [id number] medications such as acetaminophen and ibuprofen for pain however please do not exceed the daily recommended dosage as listed on the packaging and please keep in mind that many namebrand medications contain the same active ingredients. Please avoid these medications if previously instructed to do so by another physician due to other underlying medical condition. Please follow-up with a primary care provider. Return to the emergency department for uncontrolled symptoms or anything else that you are concerned about a feel needs emergency department. Coding Level of Care Code ED Bariatric Coordinator for [facility] Mcnamara
[2022-03-14 12:52] VITALS: BP 127/83; PULSE 90; RESP 16; O2SAT 96
[2022-03-14] MEDS: famotidine 20 mg Tablet 40 MG PO (12:59)
[2022-03-14] MEDS: predniSONE 20 mg Tablet 50 MG PO (12:59)
[2022-03-14 13:06] LABS: HCG Qualitative Urine. Negative (Negative)
== END 2022-03-14 13:43 | disposition home or self-care (01) ==
PROVIDERS: Emergency Provider Emergency Medicine; PCP Family Medicine
DX: T78.40XA Allergy, unspecified, initial encounter (principal); L50.9 Urticaria, unspecified; J02.9 Acute pharyngitis, unspecified
CPT/HCPCS: 81025; 99283; J7512

== ENCOUNTER 2022-05-25 23:34 | Emergency (ER) | payer MEDICAID, SELFPAY ==
[2022-05-25 23:36] VITALS: BP 128/95; PULSE 78; RESP 18; TEMP 36.6; O2SAT 95; BMI 47.5
[2022-05-25 23:40] VITALS: BP 128/95; PULSE 72; RESP 18; O2SAT 97
--- NOTE | 2022-05-26 | XRR_ITS ---
PROCEDURE INFORMATION: Exam: XR Chest Exam date and time: 05/26/2022 12:10 AM Age: 27 years old Clinical indication: Pain; Chest pressure; Additional info: Cp TECHNIQUE: Imaging protocol: Radiologic exam of the chest. Views: 1 view. COMPARISON: CR XR chest 1V [id number] 07/26/2018 8:21 PM FINDINGS: Lungs: Unremarkable. No consolidation. Pleural spaces: Unremarkable. No pleural effusion. No pneumothorax. Heart/Mediastinum: Unremarkable. No cardiomegaly. Bones/joints: Unremarkable. XR/XR chest 1V portable [id number] IMPRESSION: No acute findings.
--- NOTE | 2022-05-26 00:27 | PC.NURSE ---
Patient refusing IV Medications, per Dr Simpson patient's medication can be changed to PO.
[2022-05-26 00:31] LABS: Basophils # 0.1 10^3/uL (0.0-0.1); Basophils % 0.4 %; Eosinophils # 0.1 10^3/uL (0.0-0.8); Eosinophils % 1.1 %; Hematocrit 42.7 % (37.0-47.0); Hemoglobin 13.8 g/dL (11.5-15.3); Lymphocytes # 3.4 10^3/uL (0.8-4.8); Lymphocytes % 29.9 %; Mean Corpuscular HGB Conc 32.3 g/dL (30.0-36.0); Mean Corpuscular Hemoglobin 27.4 pg (28.0-34.0); Mean Corpuscular Volume 84.7 fl (81-99); Mean Platelet Volume 9.8 fL (7.4-10.4); Monocytes # 0.7 10^3/uL (0.2-0.9); Monocytes % 6.3 %; Neutrophils # 7.05 10^3/uL (1.8-7.7); Neutrophils % 61.9 %; Nucleated Red Blood Cells % 0 %; Platelet Count 400 10^3/cmm (130-400); Red Blood Count 5.04 10^6/uL (4.1-5.3); Red Cell Distribution Width 14.1 % (12.1-15.1); White Blood Count 11.4 10^3/uL (4.0-10.0)
[2022-05-26] MEDS: LORazepam 2 mg Tablet PO (00:31)
--- NOTE | 2022-05-26 00:31 | W.ED.ANXIETY ---
HPI - Anxiety General: Chief Complaint: Anxiety Stated Complaint: ANXIETY Time Seen by Provider: 05/25/22 23:43 Source: patient History of Present Illness: 27-year-old female with a complaint of palpitations, feeling anxiety, and paresthesias to her left upper extremity prior to arrival. These have improved at this point, but are still present. She never complained of any overt chest pain. MD complaint: anxiety, heart racing and other Onset (ago): hour(s) Symptoms: palpitations and extremity numbness/tingling Severity: moderate Quality: intermittent Place: work History of similar episodes: Yes Provoking factors: emotional stress Relieving factors: nothing Exacerbating factors: nothing Associated symptoms: Reports nausea, palpitations and vomiting (In the mornings); Deny chest pain, confusion, diaphoresis, fever(s), headache(s) or short of breath Review of Systems Const: Denies: fever(s) or diaphoresis ENMT: Denies: throat pain Card: Reports: palpitations; Denies: chest pain Resp: Denies: dyspnea, productive cough or non-productive cough GI: Reports: nausea and vomiting (In the mornings); Denies: abdominal pain Neuro: Denies: headache(s) or confusion PFSH ED PFSH: Medical History ADHD Anxiety with depression Breast pain in female Dysphoric mood Genital warts Surgical History No pertinent past surgical history Family History Grandmother Hypertension Maternal grandmother Denies family history of Colon cancer Ovarian cancer Diabetes Heart disease Hyperlipidemia Breast cancer Family history of thyroid problem Uterine cancer Stroke Social History Smoking and tobacco status: current every day smoker cigarettes Packs smoked per day: 1 Years cigarettes smoked: 4 and e-cigarettes E-Cigarette Details: vaporizer device and with nicotine E-cig/vape details: 5 % Quit status (tobacco): has tried quititng Number of times tried to quit tobacco: 2 Second hand smoke exposure: No Smoking risk assessment/counseling performed?: No Alcohol intake: current Other details last substance use: Denies drug use. Physical Exam Const: GENERAL APPEARANCE: anxious; not ill appearing NUTRITIONAL APPEARANCE: overweight HENMT: COMMON NORMALS: normocephalic, atraumatic and Normal external nose present HEAD & SCALP: normocephalic and atraumatic FACE & SINUS: normal facial exam and face symmetric NOSE: Normal external nose present Eye: COMMON NORMALS: Equal, round and reactive pupils present and EOMs intact bilaterally PUPIL: Yes Equal, round and reactive pupils present Neck/C-Spine: GENERAL: Yes trachea midline Chest: CHEST: Yes Symmetrical chest wall rise Resp: COMMON NORMALS: normal respiratory effort, No retractions, No use of accessory muscles and clear to auscultation bilaterally AUSCULTATION: clear to auscultation bilaterally Cardio: COMMON NORMALS: regular rate and regular rhythm RATE: regular rate RHYTHM: regular rhythm GI: COMMON NORMALS: Normal to inspection, nondistended, normoactive bowel sounds present Extremity: COMMON NORMALS: no pedal edema Neuro: DONNA COMA SCALE: document GCS findings Donna coma scale eye opening: Spontaneous Donna coma scale verbal response: Orientated Donna coma scale motor response: Obey commands Donna coma scale total score: 15 SENSORY EXAM: Yes extremities (intact) Psych: COMMON NORMALS: speech normal SPEECH: Yes normal speech Skin: COMMON NORMALS: no rashes or lesions noted GENERAL SKIN EXAM: no rashes or lesions noted Course Vital Signs: Vital signs: Vital Signs Temperature 97.8 F 05/25/22 23:36 Pulse Rate 72 05/25/22 23:40 Respiratory Rate 18 05/25/22 23:40 Blood Pressure 128/95 05/25/22 23:40 Pulse Oximetry 97 05/25/22 23:40 Oxygen Delivery Me thod 05/25/22 23:40 MDM - Anxiety Medical Decision Making 27-year-old female with palpitations and anxiety. Her white blood cell count is 11.4. CBC otherwise not remarkable. Sodium is 133. BMP is otherwise not remarkable. Liver enzymes are normal. TSH is normal. Troponin is 6. EKG showed a sinus rhythm with a rate of 80, normal axis, normal intervals, no acute ST changes. She is given 2 mg of Ativan orally for anxiety. She is tearful on exam. Her vital signs are essentially stable at this point. She is not hypoxic, not tachycardic. Saturations are 97% on room air. Blood pressure 128/90. She will be allowed home. Lab Data 05/26/22 00:20 05/26/22 00:20 Radiology Impressions Chest X-Ray 05/26/22 00:00 IMPRESSION: No acute findings. Laboratory Results WBC 11.4 10^3/uL (4.0-10.0) H 05/26/22 00:20 RBC 5.04 10^6/uL (4.1-5.3) 05/26/22 00:20 Hgb 13.8 g/dL (11.5-15.3) 05/26/22 00:20 Hct 42.7 % (37.0-47.0) 05/26/22 00:20 MCV 84.7 fl (81-99) 05/26/22 00:20 MCH 27.4 pg (28.0-34.0) L 05/26/22 00:20 MCHC 32.3 g/dL (30.0-36.0) 05/26/22 00:20 RDW 14.1 % (12.1-15.1) 05/26/22 00:20 Plt Count 400 10^3/cmm (130-400) 05/26/22 00:20 MPV 9.8 fL (7.4-10.4) 05/26/22 00:20 Neut % (Auto) 61.9 % 05/26/22 00:20 Lymph % (Auto) 29.9 % 05/26/22 00:20 [place] % (Auto) 6.3 % 05/26/22 00:20 Eos % (Auto) 1.1 % 05/26/22 00:20 Baso % (Auto) 0.4 % 05/26/22 00:20 Neut # (Auto) 7.05 10^3/uL (1.8-7.7) 05/26/22 00:20 Lymph # (Auto) 3.4 10^3/uL (0.8-4.8) 05/26/22 00:20 [place] # (Auto) 0.7 10^3/uL (0.2-0.9) 05/26/22 00:20 Eos # (Auto) 0.1 10^3/uL (0.0-0.8) 05/26/22 00:20 Baso # (Auto) 0.1 10^3/uL (0.0-0.1) 05/26/22 00:20 Nucleated RBC % (auto) 0 % 05/26/22 00:20 Nucleated RBCs # 0.0 /100WBC 05/26/22 00:20 Sodium 133 mmol/L (136-145) L 05/26/22 00:20 Potassium 4.3 mmol/L (3.5-5.1) 05/26/22 00:20 Chloride 99 mmol/L (98-107) 05/26/22 00:20 Carbon Dioxide 25 mmol/L (22-29) 05/26/22 00:20 Anion Gap 13.3 (5-19) 05/26/22 00:20 BUN 8 mg/dL (6-20) 05/26/22 00:20 Creatinine 0.7 mg/dL (0.5-0.9) 05/26/22 00:20 GFR Calculation 102.0 mL/min (90-130) 05/26/22 00:20 Glucose 97 mg/dL (65-115) 05/26/22 00:20 Calculated Osmolality 274 mOsm/kg (285-295) L 05/26/22 00:20 Calcium 8.9 mg/dL (8.5-10.5) 05/26/22 00:20 Total Bilirubin 0.2 mg/dL (0.15-1.2) 05/26/22 00:20 AST 12 U/L (0-32) 05/26/22 00:20 ALT 15 U/L (0-33) 05/26/22 00:20 Alkaline Phosphatase 88 U/L (35-105) 05/26/22 00:20 Troponin T Gen 5 ng/L 6 ng/L (0-10) 05/26/22 00:20 Total Protein 7.3 g/dL (6.6-8.7) 05/26/22 00:20 Albumin 3.9 g/dL (3.5-5.2) 05/26/22 00:20 Globulin 3.4 g/dL (1.3-4.6) 05/26/22 00:20 TSH 3.38 uIU/mL (0.27-4.20) 05/26/22 00:20 Discharge Plan Discharge Patient Disposition: Home Clinical Impression: Acute anxiety, Palpitations Condition: Stable Prescriptions: No Action ciprofloxacin HCl 500 mg tablet 500 mg PO BID Qty: 20 0RF Discharge Orders: Discharge ED (Routine); Ordered 05/26/22 Ordered By: Isaac Simpson Referrals: Shahbaz Birmingham MD [Primary Care Provider] - 1-3 days Patient Instructions: Heart Palpitations (ED), Anxiety (ED) Activity Restrictions/Additional Instructions: Return for any worsening symptoms. Return for thoughts or wishes to harm your self or anyone else. Coding Level of Care Code ED Field Engineer for Eleanor Mcnamara
[2022-05-26 00:56] LABS: Troponin T (5th) Once 6 ng/L (0-10)
[2022-05-26 01:03] LABS: Alanine Aminotransferase 15 U/L (0-33); Albumin Level 3.9 g/dL (3.5-5.2); Alkaline Phosphatase 88 U/L (35-105); Anion Gap 13.3 (5-19); Aspartate Amino Transferase 12 U/L (0-32); Blood Urea Nitrogen 8 mg/dL (6-20); Calcium 8.9 mg/dL (8.5-10.5); Carbon Dioxide 25 mmol/L (22-29); Chloride 99 mmol/L (98-107); Creatinine Clr Calc Pharmacy 149.7933; Globulin 3.4 g/dL (1.3-4.6); Glucose 97 mg/dL (65-115); Osmolality Calculated 274 mOsm/kg (285-295); Potassium 4.3 mmol/L (3.5-5.1); Sodium 133 mmol/L (136-145); Thyroid Stimulating Hormone 3.38 uIU/mL (0.27-4.20); Total Bilirubin 0.2 mg/dL (0.15-1.2); Total Protein 7.3 g/dL (6.6-8.7)
--- NOTE | 2022-05-26 01:12 | ECG_ITS ---
[facility] Test Date: 2022-05-26 Pat Name: Bryant Tony Department: Room: Gender: Female Evp Chief Exploration Officer: : 1995 Requested By: Isaac Aceves Order Number: [id number] Eller MD: Audi Melton M.D. Measurements Intervals [place] Rate: 80 P: 20 MA: 152 QRS: 6 QRSD: 100 T: 16 QT: 357 QTc: 414 Interpretive Statements SINUS RHYTHM LOW QRS VOLTAGE IN PRECORDIAL LEADS [QRS DEFLECTION < 1.0 mV IN CHEST LEADS] Compared to ECG 02/27/2019 10:40:00 Low QRS voltage now present Sinus arrhythmia no longer present Electronically Signed On 05-26-2022 16:08:49 CITY SURVEYOR by Audi Melton M.D. [id number]
[2022-05-26 02:42] VITALS: PULSE 72; RESP 16; O2SAT 94
== END 2022-05-26 02:39 | disposition home or self-care (01) ==
PROVIDERS: Emergency Provider Emergency Medicine; PCP Family Medicine
DX: F41.9 Anxiety disorder, unspecified (principal); R00.2 Palpitations
CPT/HCPCS: 71045; 80053; 84443; 84484; 85025; 93005; 99285

== ENCOUNTER → 2022-06-28 18:42 | Outpatient (BNVA) | payer MEDICAID, SELFPAY | PROVIDERS: PCP Family Medicine; Visit Provider Emergency Medicine | DX: R39.9 Unspecified symptoms and signs involving the genitourinary system (principal); N10 Acute pyelonephritis | CPT/HCPCS: 81000 ==

== ENCOUNTER 2022-07-15 23:32 | Emergency (ER) | payer MEDICAID, SELFPAY ==
[2022-07-15 23:44] VITALS: BP 130/84; PULSE 123; RESP 18; TEMP 37.3; O2SAT 95; BMI 51.2
--- NOTE | 2022-07-16 01:27 | PC.NURSE ---
Pt moved to Room 5 from waiting room. Pt is asleep on gurney and placed on monitors.
[2022-07-16 01:28] VITALS: BP 101/43; RESP 15; O2SAT 97
--- NOTE | 2022-07-16 02:05 | ED_ITS ---
HPI - Anxiety General: Chief Complaint: Anxiety Stated Complaint: N/V, pressure in left side of jaw Time Seen by Provider: 07/16/22 01:22 Source: patient History of Present Illness: 27-year-old female with a history of anxiety. She presents with pressure in the left side of her jaw, nausea and vomiting, that is resolved now. She took Xanax and smoked marijuana at home to try to relieve her symptoms. She is resting comfortably now with resolution of her symptoms. She has not seen a doctor since she was seen here last for similar complaints. She had a negative work-up for chest discomfort at that point. MD complaint: anxiety and other (Left neck and left shoulder numbness) Onset (ago): hour(s) Symptoms: extremity numbness/tingling and perioral numbness/tingling Severity: moderate Quality: constant Place: home History of similar episodes: Yes Associated symptoms: Reports nausea and vomiting; Deny chest pain, confusion, diaphoresis, fever(s), headache(s) or weakness Review of Systems Const: Denies: fever(s) or diaphoresis Eyes: Denies: change in vision Card: Denies: chest pain GI: Reports: nausea and vomiting Neuro: Denies: headache(s) or confusion PFSH ED PFSH: Medical History ADHD Anxiety with depression Breast pain in female Dysphoric mood Genital warts Surgical History No pertinent past surgical history Family History Grandmother Hypertension Maternal grandmother Denies family history of Colon cancer Ovarian cancer Diabetes Heart disease Hyperlipidemia Breast cancer Family history of thyroid problem Uterine cancer Stroke Social History Smoking and tobacco status: current every day smoker cigarettes Packs smoked per day: 1 Years cigarettes smoked: 4 and e-cigarettes E-Cigarette Details: vaporizer device and with nicotine E-cig/vape details: 5 % Quit status (tobacco): has tried quititng Number of times tried to quit tobacco: 2 Second hand smoke exposure: No Smoking risk assessment/counseling performed?: No Alcohol intake: current Substance/Drug Use: never Other details last substance use: Denies drug use. Physical Exam Const: COMMON NORMALS: no acute distress GENERAL APPEARANCE: cooperative; not ill appearing and not frail appearing HENMT: COMMON NORMALS: normocephalic, atraumatic and Normal external nose present HEAD & SCALP: normocephalic and atraumatic FACE & SINUS: normal facial exam and face symmetric NOSE: Normal external nose present Eye: COMMON NORMALS: Equal, round and reactive pupils present and EOMs intact bilaterally PUPIL: Yes Equal, round and reactive pupils present Neck/C-Spine: GENERAL: Yes trachea midline Chest: CHEST: Yes Symmetrical chest wall rise Resp: COMMON NORMALS: normal respiratory effort, No retractions, No use of accessory muscles and clear to auscultation bilaterally AUSCULTATION: clear to auscultation bilaterally Cardio: COMMON NORMALS: regular rate and regular rhythm RATE: regular rate RHYTHM: regular rhythm GI: COMMON NORMALS: Normal to inspection, nondistended, normoactive bowel sounds present Extremity: COMMON NORMALS: no pedal edema Neuro: DONNA COMA SCALE: document GCS findings Donna coma scale eye opening: Spontaneous Donna coma scale verbal response: Orientated Donna coma scale motor response: Obey commands Donna coma scale total score: 15 SENSORY EXAM: Yes extremities (intact) Psych: COMMON NORMALS: speech normal SPEECH: Yes normal speech Skin: COMMON NORMALS: no rashes or lesions noted GENERAL SKIN EXAM: no rashes or lesions noted Course Vital Signs: Vital signs: Vital Signs Temperature 99.2 F 07/15/22 23:44 Pulse Rate 123 H 07/15/22 23:44 Respiratory Rate 15 07/16/22 01:28 Blood Pressure 101/43 07/16/22 01:28 Pulse Oximetry 97 07/16/22 01:28 Oxygen Delivery Me thod Room Air 07/16/22 01:28 MDM - Anxiety Medical Decision Making Patient is resting comfortably. EKG does not show any acute ST wave changes. She states that she does not have a primary physician. We we will ask case management to obtain a PCP appointment for her. Discharge Plan Discharge Patient Disposition: Home Clinical Impression: Acute anxiety Condition: Stable Prescriptions: No Action sulfamethoxazole-trimethoprim [Bactrim DS] 800-160 mg tablet 1 tab PO BID 7 Days Qty: 14 0RF ondansetron 8 mg tablet,disintegrating 8 mg PO Q8H 5 Days Qty: 15 0RF phenazopyridine [Pyridium] 200 mg tablet 200 mg PO Q8H PRN (Reason: pain) 3 Days Qty: 9 0RF Discharge Orders: Discharge ED (Routine); Ordered 07/16/22 Ordered By: Isaac Simpson Referrals: Shahbaz Birmingham MD [Primary Care Provider] - Patient Instructions: Anxiety (ED) Activity Restrictions/Additional Instructions: Case management has been asked to make you a follow-up appointment with the primary physician. You should get a call from them this week. Coding Level of Care Code ED Sr Technical Sales Consultant for Eleanor Mcnamara
--- NOTE | 2022-07-16 02:12 | ECG_ITS ---
[facility] Test Date: 2022-07-16 Pat Name: Bryant Tony Department: Room: Gender: Female Director Operating Room: : 1995 Requested By: Isaac Aceves Order Number: [id number] Rafita MD: Efraín Vyas M.D. Measurements Intervals [place] Rate: 66 P: 18 SD: 153 QRS: -5 QRSD: 102 T: 3 QT: 369 QTc: 387 Interpretive Statements SINUS RHYTHM LOW QRS VOLTAGE IN PRECORDIAL LEADS [QRS DEFLECTION < 1.0 mV IN CHEST LEADS] Compared to ECG 05/26/2022 01:12:46 No significant changes Electronically Signed On 07-16-2022 14:28:40 CDT by Efraín Vyas M.D. [id number]
[2022-07-16 02:40] VITALS: BP 101/43; RESP 15; O2SAT 97
--- NOTE | 2022-07-16 14:19 | DCPLANNER ---
trust manager had message to speak with patient about getting established with a primary care physician. trust manager unable to speak with patient at this time, a message was left for patient to return supportive employment case manager phone call.
== END 2022-07-16 03:33 | disposition home or self-care (01) ==
PROVIDERS: Emergency Provider Emergency Medicine; PCP Family Medicine
DX: F41.9 Anxiety disorder, unspecified (principal); F17.210 Nicotine dependence, cigarettes, uncomplicated
CPT/HCPCS: 93005; 99283

== ENCOUNTER 2022-08-30 15:46 | Emergency (ER) | payer MEDICAID, SELFPAY ==
[2022-08-30 15:51] VITALS: BP 157/87; PULSE 96; RESP 18; TEMP 36.6; O2SAT 96; BMI 53.0
--- NOTE | 2022-08-30 16:10 | ECG_ITS ---
[facility] Test Date: 2022-08-30 Pat Name: Bryant Tony Department: Room: Gender: Female Medicine Tech: : 1995 Requested By: Tony Dean Order Number: [id number] Rafita MD: Audi Melton M.D. Measurements Intervals [place] Rate: 98 P: 31 MA: 139 QRS: 2 QRSD: 81 T: 29 QT: 329 QTc: 420 Interpretive Statements SINUS RHYTHM WITH SINUS ARRHYTHMIA POSSIBLE ANTERIOR MYOCARDIAL INFARCTION , PROBABLY OLD [30 ms Q WAVE IN V3/V4, OR R < 0.2 mV IN V4] Compared to ECG 07/16/2022 02:12:24 Myocardial infarct finding now present Electronically Signed On 08-30-2022 17:59:23 CDT by Audi Melton M.D. [id number]
--- NOTE | 2022-08-30 16:11 | ED_ITS ---
HPI - General Adult General: Chief complaint: Headache Stated complaint: arm & neck pain, sleered speech Time Seen by Provider: 08/30/22 15:59 Source: patient Mode of arrival: ambulatory History of Present Illness: 27-year-old female presents emergency room with multiple complaints. She is complaining of left arm pain left leg pain neck pain at times she has headache and slurred speech headache is on the right. She did googled her symptoms and is concerned she may be having a stroke. Additionally she complains of right up per quadrant abdominal pain. She states she is intermittent headaches as of 1 that lasted as long as a week she also feels foggy. She refers to some bumps on her left wrist just proximal to the wrist crease. No fevers sweats or chills no difficulty with breathing. She also mentions that at times she will have bilateral leg numbness. She has not noticed anything that exacerbates or relieves any of the symptoms. Onset (ago): month(s) Location: head Severity: mild Pain Consistency: constant Relieving factors: none Exacerbating factors: none Associated symptoms: Reports headache(s), malaise and nausea; Deny chest pain, confusion, cough, diaphoresis, decreased appetite, dyspnea, fevers/chills, rash, palpitations, seizures, short of breath, syncope, vomiting, weakness or other Review of Systems Const: Reports: malaise; Denies: fever(s), chills or diaphoresis Eyes: Denies: change in vision ENMT: Denies: throat pain, ear or mastoid pain, nasal discharge or nasal congestion Card: Denies: chest pain, palpitations, edema or syncope Resp: Denies: dyspnea, productive cough or non-productive cough GI: Reports: abdominal pain and nausea; Denies: vomiting : Denies: flank pain, difficulty voiding, dysuria, urinary frequency or urinary urgency Musc: Reports: neck pain, back pain and extremity pain Skin/Breast: Denies: rash Neuro: Reports: headache(s) and numbness in extremities; Denies: confusion PFSH ED PFSH: Medical History (Updated 08/31/22 @ 06:01 by Tony Arreguin DO) ADHD Anxiety with depression Borderline personality disorder Breast pain in female Dysphoric mood Genital warts Major depressive disorder, recurrent, moderate Obstructive sleep apnea Post-traumatic stress disorder, chronic Surgical History No pertinent past surgical history Family History Grandmother Hypertension Maternal grandmother Denies family history of Colon cancer Ovarian cancer Diabetes Heart disease Hyperlipidemia Breast cancer Family history of thyroid problem Uterine cancer Stroke Social History Smoking and tobacco status: current every day smoker cigarettes Packs smoked per day: 1 Years cigarettes smoked: 4 and e-cigarettes E-Cigarette Details: vapo rizer device and with nicotine E-cig/vape details: 5 % Quit status (tobacco): has tried quititng Number of times tried to quit tobacco: 2 Second hand smoke exposure: No Smoking risk assessment/counseling performed?: No Alcohol intake: current Substance/Drug Use: never Other details last substance use: Denies drug use. Physical Exam Const: ORIENTATION/CONSCIOUSNESS: Yes awake, Yes oriented to person, Yes oriented to place and Yes oriented to time HENMT: COMMON NORMALS: normocephalic, atraumatic, hearing grossly normal bilaterally, external ears normal, EAC's normal and TM's normal bilaterally HEAD & SCALP: normocephalic and atraumatic EXTERNAL EAR: Yes external ears normal EXTERNAL AUDITORY CANAL: EAC's normal TYMPANIC MEMBRANE: TM's normal bilaterally Eye: COMMON NORMALS: Equal, round and reactive pupils present, EOMs intact bilaterally, conjunctivae normal and no scleral icterus CONJUNCTIVA: Yes conjunctivae normal PUPIL: Yes Equal, round and reactive pupils present Neck/C-Spine: COMMON NORMALS: full ROM, no lymphadenopathy, supple and no JVD Lymph: LYMPHATIC: no lymphadenopathy noted and no lymphedema noted Resp: COMMON NORMALS: normal respiratory effort, No retractions, No use of accessory muscles and clear to auscultation bilaterally AUSCULTATION: clear to auscultation bilaterally Cardio: COMMON NORMALS: no JVD, regular rate, regular rhythm and No murmurs present (Cardio) RATE: regular rate RHYTHM: regular rhythm GI: COMMON NORMALS: Soft to palpation and No hepatosplenomegaly present AUSCULTATION: Yes normoactive bowel sounds PALPATION: Yes Soft to palpation, No Tenderness to palpation present (GI), No Guarding due to palpation present (GI) and Yes No hepatosplenomegaly present Extremity: COMMON NORMALS: normal to inspection, capillary refill normal, no clubbing, cyanosis or edema, no calf tenderness and no pedal edema Neuro: SENSORIUM/ORIENTATION: Yes oriented to person, Yes oriented to place and Yes oriented to time OTHER: Cranial nerves II to XII intact no focal neurologic deficits are noted. No ataxia. No dysarthria Skin: COMMON NORMALS: no rashes or lesions noted GENERAL SKIN EXAM: no rashes or lesions noted OTHER: Examination of the left wrist no evidence of any bumps or lumps or abnormal skin condition. No palpable abnormalities proximal to the wrist crease Course Vital Signs: Vital signs: Vital Signs Temperature 97.9 F 08/30/22 15:51 Pulse Rate 84 08/30/22 17:54 Respiratory Rate 18 08/30/22 15:51 Blood Pressure 141/103 08/30/22 17:54 Pulse Oximetry 93 08/30/22 17:54 Oxygen Delivery Me thod Room Air 08/30/22 15:51 MDM - General Adult Medical Decision Making Patient awake alert and oriented no neurologic deficits are noted. Her symptoms are not consistent with any particular diagnosis at this time. She is multiple various complaints to me which do not appear to be connected. There is a mention of previous seizures in the past however she had an EEG done 2020 which was negative. She does have severe sleep apnea. No recent medication changes. Recommended discharge and follow-up with Dr. Garza some of this may be migraine variant. She reported some bumps on her right wrist which I cannot appreciate. Patient is insistent that she have a head CT. We did do the CT which was negative. Recommend that she follow-up with neurology we will have case management make a referral back to neurology. Suspect some of this may be migraine variant Medical Records I reviewed the patient's medical records. Lab Data I reviewed the patient's lab results. 08/30/22 16:37 08/30/22 16:[address] 08/30/22 17:42 IMPRESSION: No acute intracranial abnormality. Laboratory Results WBC 11.8 10^3/uL (4.0-10.0) H 08/30/22 16:37 RBC 4.88 10^6/uL (4.1-5.3) 08/30/22 16:37 Hgb 13.4 g/dL (11.5-15.3) 08/30/22 16:37 Hct 42.1 % (37.0-47.0) 08/30/22 16:37 MCV 86.3 fl (81-99) 08/30/22 16:37 MCH 27.5 pg (28.0-34.0) L 08/30/22 16:37 MCHC 31.8 g/dL (30.0-36.0) 08/30/22 16:37 RDW 13.8 % (12.1-15.1) 08/30/22 16:37 Plt Count 384 10^3/cmm (130-400) 08/30/22 16:37 MPV 9.6 fL (7.4-10.4) 08/30/22 16:37 Neut % (Auto) 71.1 % 08/30/22 16:37 Lymph % (Auto) 21.8 % 08/30/22 16:37 [place] % (Auto) 5.1 % 08/30/22 16:37 Eos % (Auto) 1.1 % 08/30/22 16:37 Baso % (Auto) 0.3 % 08/30/22 16:37 Neut # (Auto) 8.39 10^3/uL (1.8-7.7) H 08/30/22 16:37 Lymph # (Auto) 2.6 10^3/uL (0.8-4.8) 08/30/22 16:37 [place] # (Auto) 0.6 10^3/uL (0.2-0.9) 08/30/22 16:37 Eos # (Auto) 0.1 10^3/uL (0.0-0.8) 08/30/22 16:37 Baso # (Auto) 0.0 10^3/uL (0.0-0.1) 08/30/22 16:37 Nucleated RBC % (auto) 0 % 08/30/22 16:37 Nucleated RBCs # 0.0 /100WBC 08/30/22 16:37 Sodium 137 mmol/L (136-145) 08/30/22 16:37 Potassium 4.1 mmol/L (3.5-5.1) 08/30/22 16:37 Chloride 100 mmol/L (98-107) 08/30/22 16:37 Carbon Dioxide 25 mmol/L (22-29) 08/30/22 16:37 Anion Gap 16.1 (5-19) 08/30/22 16:37 BUN 11 mg/dL (6-20) 08/30/22 16:37 Creatinine 0.7 mg/dL (0.5-0.9) 08/30/22 16:37 GFR Calculation 102.0 mL/min (90-130) 08/30/22 16:37 Glucose 94 mg/dL (65-115) 08/30/22 16:37 Calculated Osmolality 283 mOsm/kg (285-295) L 08/30/22 16:37 Calcium 8.7 mg/dL (8.5-10.5) 08/30/22 16:37 Total Bilirubin 0.2 mg/dL (0.15-1.2) 08/30/22 16:37 AST 12 U/L (0-32) 08/30/22 16:37 ALT 20 U/L (0-33) 08/30/22 16:37 Alkaline Phosphatase 101 U/L (35-105) 08/30/22 16:37 Total Protein 7.5 g/dL (6.6-8.7) 08/30/22 16:37 Albumin 3.9 g/dL (3.5-5.2) 08/30/22 16:37 Globulin 3.6 g/dL (1.3-4.6) 08/30/22 16:37 Lipase 15 U/L (13-60) 08/30/22 16:37 HCG, Qual Negative (Negative) 08/30/22 16:37 Urine Color Yellow (Yellow) 08/30/22 16:11 Urine Appearance Hazy (CLEAR) A 08/30/22 16:11 Urine pH 6 (5-7) 08/30/22 16:11 Ur Specific [place] 1.020 (1.005-1.030) 08/30/22 16:11 Urine Protein Neg (Negative) 08/30/22 16:11 Urine Glucose (UA) Norm (Normal) 08/30/22 16:11 Urine Ketones 1+ (Negative) H 08/30/22 16:11 Urine Blood 2+ (Negative) H 08/30/22 16:11 Urine Nitrate Negative (Negative) 08/30/22 16:11 Urine Bilirubin Neg (Negative) 08/30/22 16:11 Urine Urobilinogen 1 mg/dL (Negative) H 08/30/22 16:11 Ur Leukocyte Esterase 2+ (Negative) H 08/30/22 16:11 Urine RBC Rare /hpf (0-2) 08/30/22 16:11 Urine WBC 0-4 /hpf (0-5) H 08/30/22 16:11 Ur Squamous Epith Cells 0-4 /hpf (0-5) H 08/30/22 16:11 Amorphous Sediment Not Reportable 08/30/22 16:11 Urine Bacteria 1+ /hpf (NONE) H 08/30/22 16:11 Urine Mucus Trace /hpf 08/30/22 16:11 Discharge Plan Discharge Patient Disposition: Home Clinical Impression: Headache Condition: Stable Prescriptions: No Action sulfamethoxazole-trimethoprim [Bactrim DS] 800-160 mg tablet 1 tab PO BID 7 Days Qty: 14 0RF ondansetron 8 mg tablet,disintegrating 8 mg PO Q8H 5 Days Qty: 15 0RF phenazopyridine [Pyridium] 200 mg tablet 200 mg PO Q8H PRN (Reason: pain) 3 Days Qty: 9 0RF Discharge Orders: Discharge ED (Routine); Ordered 08/30/22 Ordered By: Harley Clinton Referrals: Shahbaz Birmingham MD [Primary Care Provider] - Discharge Diet: Advance as tolerated Discharge Activity: Resume usual activity Patient Instructions: General Headache (ED) Stand Alone Forms: Work/School Release Coding Level of Care Code ED [employer] for [employer]
[2022-08-30 16:55] VITALS: BP 116/100; PULSE 106; O2SAT 97
[2022-08-30 16:58] LABS: Basophils % 0.3 %; Eosinophils # 0.1 10^3/uL (0.0-0.8); Eosinophils % 1.1 %; Hematocrit 42.1 % (37.0-47.0); Hemoglobin 13.4 g/dL (11.5-15.3); Lymphocytes # 2.6 10^3/uL (0.8-4.8); Lymphocytes % 21.8 %; Mean Corpuscular HGB Conc 31.8 g/dL (30.0-36.0); Mean Corpuscular Hemoglobin 27.5 pg (28.0-34.0); Mean Corpuscular Volume 86.3 fl (81-99); Mean Platelet Volume 9.6 fL (7.4-10.4); Monocytes # 0.6 10^3/uL (0.2-0.9); Monocytes % 5.1 %; Neutrophils # 8.39 10^3/uL (1.8-7.7); Neutrophils % 71.1 %; Nucleated Red Blood Cells % 0 %; Platelet Count 384 10^3/cmm (130-400); Red Blood Count 4.88 10^6/uL (4.1-5.3); Red Cell Distribution Width 13.8 % (12.1-15.1); White Blood Count 11.8 10^3/uL (4.0-10.0)
[2022-08-30] MEDS: ketorolac 30 mg/mL INJ 60 MG IM (17:05)
[2022-08-30] MEDS: promethazine 25 mg/mL SDV 1 mL IM (17:05)
[2022-08-30] MEDS: sodium chloride 0.9% 1,000 ML 999 ML IV (17:06)
[2022-08-30 17:18] VITALS: BP 130/84; PULSE 93; O2SAT 96
[2022-08-30 17:24] LABS: Bilirubin Urine Neg (Negative); Blood Urine 2+ (Negative); Glucose Urine UA Norm (Normal); Ketones Urine 1+ (Negative); Nitrate Urine Negative (Negative); Protein Urine Neg (Negative); Urine Appearance Hazy (CLEAR); Urine Color Yellow (Yellow); pH Urine 6 (5-7)
[2022-08-30 17:25] LABS: Add Urine Microscopic? YES; Leukocyte Esterase Urine 2+ (Negative); Urobilinogen Urine 1 mg/dL (Negative)
[2022-08-30 17:33] LABS: Alanine Aminotransferase 20 U/L (0-33); Albumin Level 3.9 g/dL (3.5-5.2); Alkaline Phosphatase 101 U/L (35-105); Anion Gap 16.1 (5-19); Aspartate Amino Transferase 12 U/L (0-32); Blood Urea Nitrogen 11 mg/dL (6-20); Calcium 8.7 mg/dL (8.5-10.5); Carbon Dioxide 25 mmol/L (22-29); Chloride 100 mmol/L (98-107); Globulin 3.6 g/dL (1.3-4.6); Glucose 94 mg/dL (65-115); Lipase 15 U/L (13-60); Osmolality Calculated 283 mOsm/kg (285-295); Potassium 4.1 mmol/L (3.5-5.1); Sodium 137 mmol/L (136-145); Total Bilirubin 0.2 mg/dL (0.15-1.2); Total Protein 7.5 g/dL (6.6-8.7)
[2022-08-30 17:36] LABS: Bacteria Urine 1+ /hpf; RBC Urine RARE /hpf (0-2); Squamous Epithelial Cell Urine 0-4 /hpf (0-5); WBC Urine 0-4 /hpf (0-5)
[2022-08-30 17:37] LABS: Add Urine Culture? No; Mucus Urine TRACE /hpf
[2022-08-30 17:42] LABS: HCG, Serum Qual Negative (Negative)
--- NOTE | 2022-08-30 17:42 | CTR_ITS ---
PROCEDURE INFORMATION: Exam: CT Head Without Contrast Exam date and time: 08/30/2022 5:59 PM Age: 27 years old Clinical indication: Pain; Headache TECHNIQUE: Imaging protocol: Computed tomography of the head without contrast. Radiation optimization: All CT scans at this facility use at least one of these dose optimization techniques: automated exposure control; mA and/or kV adjustment per patient size (includes targeted exams where dose is matched to clinical indication); or iterative reconstruction. REPORTING DATA: Count of CT and Cardiac NM exams in prior 12 months: This patient has received 0 known CTs and 0 known cardiac nuclear medicine studies in the 12 months prior to the current study. COMPARISON: CT head wo con* [id number] 11/01/2018 8:16 PM RADIATION DOSE METRICS: Total DLP (mGy-cm): 1066 FINDINGS: Brain: No acute infarct. No hemorrhage. Unremarkable white matter for age. No mass effect. Cerebral ventricles: No ventriculomegaly. Paranasal sinuses: Visualized sinuses are unremarkable. No fluid levels. Mastoid air cells: Visualized mastoid air cells are well aerated. Bones/joints: Unremarkable. No acute fracture. Soft tissues: Unremarkable. CT/CT head wo con* [id number] IMPRESSION: No acute intracranial abnormality.
[2022-08-30 17:54] VITALS: BP 141/103; PULSE 84; O2SAT 93
--- NOTE | 2022-08-31 08:30 | DCPLANNER ---
Addendum entered by Francy Schofield 11/08/22 09:34: Patient did not attend appointment Addendum entered by Francy Schofield 09/07/22 09:17: Patient has a follow up appointment scheduled for Sunday, November 06, 2022 at 9:[address] Garza at neurology. Original Note: region manager had message to schedule a follow up appointment for patient with neurology. region manager sent patients information to the front office staff at neurology. Patients information will be printed and reviewed. Clinic will call patient with appointment information.
== END 2022-08-30 18:43 | disposition home or self-care (01) ==
PROVIDERS: Emergency Provider Family Medicine; PCP Family Medicine
DX: R51.9 Headache, unspecified (principal); F17.210 Nicotine dependence, cigarettes, uncomplicated
CPT/HCPCS: 36415; 70450; 80053; 81001; 83690; 84703; 85025; 93005; 96372; 99285; J1885; J2550; J7030

== ENCOUNTER 2022-09-27 01:55 | Emergency (ER) | payer MEDICAID, SELFPAY ==
[2022-09-27 02:04] VITALS: BP 112/73; PULSE 117; RESP 16; TEMP 36.3; O2SAT 95
[2022-09-27 02:16] LABS: Glucose Point of Care 158 mg/dL (70-110)
--- NOTE | 2022-09-27 02:22 | ECG_ITS ---
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 Measurements Intervals [place] Rate: 100 P: 26 HI: 140 QRS: 1 QRSD: 109 T: 18 QT: 351 QTc: 455 Interpretive Statements SINUS TACHYCARDIA LOW QRS VOLTAGE IN PRECORDIAL LEADS [QRS DEFLECTION < 1.0 mV IN CHEST LEADS] MINIMAL VOLTAGE CRITERIA FOR LVH, CONSIDER NORMAL VARIANT [MEETS CRITERIA IN ONE OF: R(aVL), S(V1), R(V5), R(V5/V6)+S(V1)] Compared to ECG 08/30/2022 16:25:16 Low QRS voltage now present Sinus rhythm no longer present Sinus arrhythmia no longer present Myocardial infarct finding no longer present Electronically Signed On 09-27-2022 12:15:48 CDT by Audi Melton M.D. [id number]
[2022-09-27 02:27] VITALS: BP 107/60; PULSE 94; RESP 16; O2SAT 91
--- NOTE | 2022-09-27 02:38 | ED_ITS ---
Documented by User: CAROL ANN Garcia 09/27/22 04:18 HPI - Headache General: Chief Complaint: Headache Stated Complaint: headache, dry mouth Time Seen by Provider: 09/27/22 02:21 History of Present Illness: Patient is a 27-year-old female who comes to the ED with headache and nausea and vomiting. Patient says she has been dealing with the symptoms now for several months. She has been having these episodes of headache almost daily for the past several months. She was seen here in the ED for same complaint back on August 30 and states that her headache is the same. He she describes a 10 out of 10 headache that is a pressure type pain on the left side of her head. She has been having nausea and vomiting for the past couple days as well. Patient also states she has been having left arm pain and chest fluttering. She is also complaining of having a dry mouth. Last menstrual period started approximately a week ago and menstrual period as ended and she does not have any vaginal bleeding. Endorses dark urine and some bladder pain as well over the past couple days. patient denies taking any medications or illegal drugs before coming to the ED. Denies any neurological symptoms. Patient states she is set up to see neurologist in the next couple months. Associated symptoms: Reports chest pain (Chest discomfort), nausea and vomiting; Deny fever(s) or rash Review of Systems Const: Denies: fever(s), chills or fatigue Eyes: Denies: change in vision or eye discomfort ENMT: Denies: throat pain, odynophagia, nasal discharge or nasal congestion Card: Reports: chest pain (Chest discomfort); Denies: palpitations, edema, swelling of feet/ankles, dyspnea on exertion or orthopnea Resp: Denies: dyspnea, productive cough or non-productive cough GI: Reports: nausea and vomiting; Denies: abdominal pain, diarrhea, constipation or hematochezia : Reports: other (Bladder pain and darker colored urine.); Denies: flank pain, dysuria, hematuria, vaginal bleeding or vaginal discharge Musc: Denies: neck pain, back pain or extremity swelling Skin/Breast: Denies: rash or new lesions Neuro: Reports: headache(s); Denies: numbness in extremities or weakness in extremities [facility] ED PFSH: Medical History (Updated 10/05/22 @ 00:09 by PAOLO Franklin) ADHD Anxiety with depression Borderline personality disorder Breast pain in female Dysphoric mood Genital warts Major depressive disorder, recurrent, moderate Obstructive sleep apnea Post-traumatic stress disorder, chronic Surgical History No pertinent past surgical history Family History Grandmother Hypertension Maternal grandmother Denies family history of Colon cancer Ovarian cancer Diabetes Heart disease Hyperlipidemia Breast cancer Family history of thyroid problem Uterine cancer Stroke Social History Smoking and tobacco status: current every day smoker cigarettes Packs smoked per day: 1 Years cigarettes smoked: 4 and e-cigarettes E-Cigarette Details: vaporizer device and with nicotine E-cig/vape details: 5 % Quit status (tobacco): has tried quititng Number of times tried to quit tobacco: 2 Second hand smoke exposure: No Smoking risk assessment/counseling performed?: No Alcohol intake: current Substance/Drug Use: never Other details last substance use: Denies drug use. Physical Exam Const: COMMON NORMALS: patient oriented x3 and alert GENERAL APPEARANCE: cooperative and lethargic (Patient appears sleepy) ORIENTATION/CONSCIOUSNESS: Yes lethargic (Patient appears sleepy) HENMT: COMMON NORMALS: normocephalic HEAD & SCALP: normocephalic MOUTH: Normal oral and palatal mucosa present THROAT: posterior oropharynx normal and uvula midline Eye: COMMON NORMALS: Equal, round and reactive pupils present and EOMs intact bilaterally GENERAL EYE: appearance normal, both eyes and all related structures PUPIL: Yes Equal, round and reactive pupils present Neck/C-Spine: COMMON NORMALS: supple GENERAL: Yes normal visual inspection Lymph: LYMPHATIC: no lymphadenopathy noted Resp: COMMON NORMALS: normal respiratory effort, No retractions, No use of accessory muscles and clear to auscultation bilaterally AUSCULTATION: clear to auscultation bilaterally Cardio: COMMON NORMALS: regular rate, regular rhythm, S1 normal heart sound present, S2 normal heart sound present, No gallops present (Cardio), No clicks present (Cardio), No murmurs present (Cardio) and Peripheral pulses 2+ throughout RATE: regular rate RHYTHM: regular rhythm HEART SOUNDS: S1 normal heart sound present and S2 normal heart sound present PERIPHERAL PULSES: Peripheral pulses 2+ throughout GI: COMMON NORMALS: Normal to inspection, nondistended, normoactive bowel sounds present, Soft to palpation, non-tender and no masses PALPATION: Yes Soft to palpation : COMMON NORMALS: Yes no CVA tenderness BLADDER/KIDNEY EXAM: Yes no CVA tenderness Back/Pelvis: COMMON NORMALS: no CVA tenderness Extremity: GENERAL: Yes normal exam except as noted Neuro: COMMON NORMALS: patient oriented x3, CN's II-XII intact bilaterally, moves all extremities, no focal motor deficits and no sensory deficits noted SENSORIUM/ORIENTATION: Yes alert and Yes lethargic (Patient appears sleepy) SENSORY EXAM: Yes extremities (intact) MOTOR EXAM: 5/5 motor strength present throughout Skin: COMMON NORMALS: no rashes or lesions noted GENERAL SKIN EXAM: no rashes or lesions noted and dry skin Course Vital Signs: Vital signs: Vital Signs Temperature 97.4 F L 09/27/22 02:04 Pulse Rate 86 09/27/22 05:00 Respiratory Rate 16 09/27/22 05:00 Blood Pressure 100/50 09/27/22 05:00 Pulse Oximetry 92 09/27/22 05:00 MDM - Headache Medical Decision Making Patient is a 27-year-old female who comes to the ED with headache and nausea and vomiting. Patient says she has been dealing with the symptoms now for several months. She has been having these episodes of headache almost daily for the past several months. She was seen here in the ED for same complaint back on August 30 and states that her headache is the same. He she describes a 10 out of 10 headache that is a pressure type pain on the left side of her head. She has been having nausea and vomiting for the past couple days as well. Patient also states she has been having left arm pain and chest fluttering. She is also complaining of having a dry mouth. Last menstrual period started approximately a week ago and menstrual period as ended and she does not have any vaginal bleeding. Endorses dark urine and some bladder pain as well over the past couple days. patient denies taking any medications or illegal drugs before coming to the ED. Denies any neurological symptoms. Vitals are stable. Exam is benign and neuro exam shows no deficits. Labs pending. Told Dr. Frausto about patient case and he will be taking over care of patient and reevaluating them after meds. Lab Data I reviewed the patient's lab results. 09/27/22 02:50 09/27/22 02:50 Laboratory Results WBC 14.4 10^3/uL (4.0-10.0) H 09/27/22 02:50 RBC 4.66 10^6/uL (4.1-5.3) 09/27/22 02:50 Hgb 12.6 g/dL (11.5-15.3) 09/27/22 02:50 Hct 39.0 % (37.0-47.0) 09/27/22 02:50 MCV 83.7 fl (81-99) 09/27/22 02:50 MCH 27.0 pg (28.0-34.0) L 09/27/22 02:50 MCHC 32.3 g/dL (30.0-36.0) 09/27/22 02:50 RDW 13.8 % (12.1-15.1) 09/27/22 02:50 Plt Count 410 10^3/cmm (130-400) H 09/27/22 02:50 MPV 9.8 fL (7.4-10.4) 09/27/22 02:50 Neut % (Auto) 80.5 % 09/27/22 02:50 Lymph % (Auto) 13.9 % 09/27/22 02:50 Dixon % (Auto) 4.4 % 09/27/22 02:50 Eos % (Auto) 0.3 % 09/27/22 02:50 Baso % (Auto) 0.3 % 09/27/22 02:50 Neut # (Auto) 11.56 10^3/uL (1.8-7.7) H 09/27/22 02:50 Lymph # (Auto) 2.0 10^3/uL (0.8-4.8) 09/27/22 02:50 Dixon # (Auto) 0.6 10^3/uL (0.2-0.9) 09/27/22 02:50 Eos # (Auto) 0.0 10^3/uL (0.0-0.8) 09/27/22 02:50 Baso # (Auto) 0.0 10^3/uL (0.0-0.1) 09/27/22 02:50 Nucleated RBC % (auto) 0 % 09/27/22 02:50 Nucleated RBCs # 0.0 /100WBC 09/27/22 02:50 Sodium 136 mmol/L (136-145) 09/27/22 02:50 Potassium 4.0 mmol/L (3.5-5.1) 09/27/22 02:50 Chloride 99 mmol/L (98-107) 09/27/22 02:50 Carbon Dioxide 24 mmol/L (22-29) 09/27/22 02:50 Anion Gap 17.0 (5-19) 09/27/22 02:50 BUN 11 mg/dL (6-20) 09/27/22 02:50 Creatinine 0.8 mg/dL (0.5-0.9) 09/27/22 02:50 GFR Calculation 87.4 mL/min (90-130) L 09/27/22 02:50 Glucose 166 mg/dL (65-115) H 09/27/22 02:50 POC Glucose 158 mg/dL (70-110) H 09/27/22 02:12 Calculated Osmolality 285 mOsm/kg (285-295) 09/27/22 02:50 Calcium 8.8 mg/dL (8.5-10.5) 09/27/22 02:50 Total Bilirubin 0.3 mg/dL (0.15-1.2) 09/27/22 02:50 AST 13 U/L (0-32) 09/27/22 02:50 ALT 19 U/L (0-33) 09/27/22 02:50 Alkaline Phosphatase 82 U/L (35-105) 09/27/22 02:50 Troponin T Baseline 6 ng/L (0-10) 09/27/22 02:50 Total Protein 7.0 g/dL (6.6-8.7) 09/27/22 02:50 Albumin 3.9 g/dL (3.5-5.2) 09/27/22 02:50 Globulin 3.1 g/dL (1.3-4.6) 09/27/22 02:50 HCG, Qual Negative (Negative) 09/27/22 02:50 EKG Data EKG 1: EKG interpretation date: 09/27/22 Interpretation: Sinus tachycardia, no ST segment ovation or depression seen. 100 bpm Discharge Plan Discharge Patient Disposition: Home Clinical Impression: Headache, Malaise and fatigue Condition: Stable Prescriptions: New Reglan 10 mg tablet 10 mg PO QID Qty: 20 0RF No Action sulfamethoxazole-trimethoprim [Bactrim DS] 800-160 mg tablet 1 tab PO BID 7 Days Qty: 14 0RF ondansetron 8 mg tablet,disintegrating 8 mg PO Q8H 5 Days Qty: 15 0RF phenazopyridine [Pyridium] 200 mg tablet 200 mg PO Q8H PRN (Reason: pain) 3 Days Qty: 9 0RF Discharge Orders: Discharge ED (Routine); Ordered 09/27/22 Ordered By: Olivier Frausto Referrals: Shhabaz Birmingham MD [Primary Care Provider] - Discharge Diet: Usual diet Discharge Activity: Increase activity as tolerated Patient Instructions: Acute Headache (ED) Activity Restrictions/Additional Instructions: Thank you for visiting the emergency department. You were seen and evaluated for headache and generalized illness. The exact cause of your symptoms is unclear however does not appear to need hospitalization at this time. We are pleased that you had resolution of symptoms. Please rest and ensure that you are staying hydrated. I will prescribe Reglan for headache and nausea and vomiting. You may use [id number] medications such as acetaminophen and ibuprofen for pain howev er please do not exceed the daily recommended dosage as listed on the packaging and please keep in mind that many namebrand medications contain the same active ingredients. Please avoid these medications if previously instructed to do so by another physician due to other underlying medical condition. Follow-up with a primary care provider. Return for uncontrolled symptoms or anything else that you are concerned about and feel needs emergency department evaluation Sign Out Sign Out Data: Patient Sign Out occurred on 09/27/22 at 04:24. Patient's care was discussed, and care was transferred from to Olivier Frausto MD. Coding Level of Care Code ED Ware Tester for Chg Fwd Documented by User: Olivier Frausto MD 10/09/22 08:43 HPI - Headache General: Chief Complaint: Headache Stated Complaint: headache, dry mouth Time Seen by Provider: 09/27/22 02:21 [facility] ED PFS: Medical History (Updated 10/05/22 @ 00:09 by PAOLO Franklin) ADHD Anxiety with depression Borderline personality disorder Breast pain in female Dysphoric mood Genital warts Major depressive disorder, recurrent, moderate Obstructive sleep apnea Post-traumatic stress disorder, chronic Surgical History No pertinent past surgical history Family History Grandmother Hypertension Maternal grandmother Denies family history of Colon cancer Ovarian cancer Diabetes Heart disease Hyperlipidemia Breast cancer Family history of thyroid problem Uterine cancer Stroke Social History Smoking and tobacco status: current every day smoker cigarettes Packs smoked per day: 1 Years cigarettes smoked: 4 and e-cigarettes E-Cigarette Details: vaporizer device and with nicotine E-cig/vape details: 5 % Quit status (tobacco): has tried quititng Number of times tried to quit tobacco: 2 Second hand smoke exposure: No Smoking risk assessment/counseling performed?: No Alcohol intake: current Substance/Drug Use: never Other details last substance use: Denies drug use. Course Vital Signs: Vital signs: Vital Signs Temperature 97.4 F L 09/27/22 02:04 Pulse Rate 86 09/27/22 05:00 Respiratory Rate 16 09/27/22 05:00 Blood Pressure 100/50 09/27/22 05:00 Pulse Oximetry 92 09/27/22 05:00 MDM - Headache Medical Decision Making Patient is a 27-year-old female who comes to the ED with headache and nausea and vomiting. Patient says she has been dealing with the symptoms now for several months. She has been having these episodes of headache almost daily for the past several months. She was seen here in the ED for same complaint back on August 30 and states that her headache is the same. He she describes a 10 out of 10 headache that is a pressure type pain on the left side of her head. She has been having nausea and vomiting for the past couple days as well. Patient also states she has been having left arm pain and chest fluttering. She is also complaining of having a dry mouth. Last menstrual period started approximately a week ago and menstrual period as ended and she does not have any vaginal bleeding. Endorses dark urine and some bladder pain as well over the past couple days. patient denies taking any medications or illegal drugs before coming to the ED. Denies any neurological symptoms. Vitals are stable. Exam is benign and neuro exam shows no deficits. Labs pending. Told Dr. Frausto about patient case and he will be taking over care of patient and reevaluating them after meds. I discussed this case with CAROL ANN Garcia. I reviewed documentation, labs, recent imaging. I personally saw and evaluated the patient and reperformed hoffman portions of E/M. Patient markedly improved with treatment and satisfactory for outpatient management. The results of ED evaluation were discussed with the patient including prescriptions and/or symptomatic cares (if applicable) including appropriate and responsible use, followup plan, and return precautions. The patient verbalized understanding and felt safe for discharge. Olivier Frausto MD Emergency Medicine Lab Data 09/27/22 02:50 09/27/22 02:50 Laboratory Results WBC 14.4 10^3/uL (4.0-10.0) H 09/27/22 02:50 RBC 4.66 10^6/uL (4.1-5.3) 09/27/22 02:50 Hgb 12.6 g/dL (11.5-15.3) 09/27/22 02:50 Hct 39.0 % (37.0-47.0) 09/27/22 02:50 MCV 83.7 fl (81-99) 09/27/22 02:50 MCH 27.0 pg (28.0-34.0) L 09/27/22 02:50 MCHC 32.3 g/dL (30.0-36.0) 09/27/22 02:50 RDW 13.8 % (12.1-15.1) 09/27/22 02:50 Plt Count 410 10^3/cmm (130-400) H 09/27/22 02:50 MPV 9.8 fL (7.4-10.4) 09/27/22 02:50 Neut % (Auto) 80.5 % 09/27/22 02:50 Lymph % (Auto) 13.9 % 09/27/22 02:50 Dixon % (Auto) 4.4 % 09/27/22 02:50 Eos % (Auto) 0.3 % 09/27/22 02:50 Baso % (Auto) 0.3 % 09/27/22 02:50 Neut # (Auto) 11.56 10^3/uL (1.8-7.7) H 09/27/22 02:50 Lymph # (Auto) 2.0 10^3/uL (0.8-4.8) 09/27/22 02:50 Dixon # (Auto) 0.6 10^3/uL (0.2-0.9) 09/27/22 02:50 Eos # (Auto) 0.0 10^3/uL (0.0-0.8) 09/27/22 02:50 Baso # (Auto) 0.0 10^3/uL (0.0-0.1) 09/27/22 02:50 Nucleated RBC % (auto) 0 % 09/27/22 02:50 Nucleated RBCs # 0.0 /100WBC 09/27/22 02:50 Sodium 136 mmol/L (136-145) 09/27/22 02:50 Potassium 4.0 mmol/L (3.5-5.1) 09/27/22 02:50 Chloride 99 mmol/L (98-107) 09/27/22 02:50 Carbon Dioxide 24 mmol/L (22-29) 09/27/22 02:50 Anion Gap 17.0 (5-19) 09/27/22 02:50 BUN 11 mg/dL (6-20) 09/27/22 02:50 Creatinine 0.8 mg/dL (0.5-0.9) 09/27/22 02:50 GFR Calculation 87.4 mL/min (90-130) L 09/27/22 02:50 Glucose 166 mg/dL (65-115) H 09/27/22 02:50 POC Glucose 158 mg/dL (70-110) H 09/27/22 02:12 Calculated Osmolality 285 mOsm/kg (285-295) 09/27/22 02:50 Calcium 8.8 mg/dL (8.5-10.5) 09/27/22 02:50 Total Bilirubin 0.3 mg/dL (0.15-1.2) 09/27/22 02:50 AST 13 U/L (0-32) 09/27/22 02:50 ALT 19 U/L (0-33) 09/27/22 02:50 Alkaline Phosphatase 82 U/L (35-105) 09/27/22 02:50 Troponin T Baseline 6 ng/L (0-10) 09/27/22 02:50 Total Protein 7.0 g/dL (6.6-8.7) 09/27/22 02:50 Albumin 3.9 g/dL (3.5-5.2) 09/27/22 02:50 Globulin 3.1 g/dL (1.3-4.6) 09/27/22 02:50 HCG, Qual Negative (Negative) 09/27/22 02:50 Discharge Plan Discharge Patient Disposition: Home Clinical Impression: Headache, Malaise and fatigue Condition: Stable Prescriptions: New Reglan 10 mg tablet 10 mg PO QID Qty: 20 0RF No Action sulfamethoxazole-trimethoprim [Bactrim DS] 800-160 mg tablet 1 tab PO BID 7 Days Qty: 14 0RF ondansetron 8 mg tablet,disintegrating 8 mg PO Q8H 5 Days Qty: 15 0RF phenazopyridine [Pyridium] 200 mg tablet 200 mg PO Q8H PRN (Reason: pain) 3 Days Qty: 9 0RF Discharge Orders: Discharge ED (Routine); Ordered 09/27/22 Ordered By: Olivier Frausto Referrals: Shahbaz Birmingham MD [Primary Care Provider] - Discharge Diet: Usual diet Discharge Activity: Increase activity as tolerated Patient Instructions: Acute Headache (ED) Activity Restrictions/Additional Instructions: Thank you for visiting the emergency department. You were seen and evaluated for headache and generalized illness. The exact cause of your symptoms is unclear however does not appear to need hospitalization at this time. We are pleased that you had resolution of symptoms. Please rest and ensure that you are staying hydrated. I will prescribe Reglan for headache and nausea and vomiting. You may use [id number] medications such as acetaminophen and ibuprofen for pain however please do not exceed the daily recommended dosage as listed on the packaging and please keep in mind that many namebrand medications contain the same active ingredients. Please avoid these medications if previously instructed to do so by another physician due to other underlying medical condition. Follow-up with a primary care provider. Return for uncontrolled symptoms or anything else that you are concerned about and feel needs emergency department evaluation Sign Out Sign Out Data: Patient Sign Out occurred on 09/27/22 at 04:24. Patient's care was discussed, and care was transferred from to Olivier Frausto MD. Coding Level of Care Code ED Ware Tester for Eleanor Mcnamara
[2022-09-27] MEDS: diphenhydrAMINE 50 mg/mL SDV 1mL 25 MG IVP (02:54)
[2022-09-27] MEDS: sodium chloride 0.9% 1,000 ML 999 ML IV (02:56)
[2022-09-27] MEDS: metoclopramide 5 mg/mL SDV 2 mL 10 MG IVP (02:56)
[2022-09-27 02:59] LABS: Basophils % 0.3 %; Eosinophils % 0.3 %; Hemoglobin 12.6 g/dL (11.5-15.3); Lymphocytes % 13.9 %; Mean Corpuscular HGB Conc 32.3 g/dL (30.0-36.0); Mean Corpuscular Volume 83.7 fl (81-99); Mean Platelet Volume 9.8 fL (7.4-10.4); Monocytes # 0.6 10^3/uL (0.2-0.9); Monocytes % 4.4 %; Neutrophils # 11.56 10^3/uL (1.8-7.7); Neutrophils % 80.5 %; Nucleated Red Blood Cells % 0 %; Platelet Count 410 10^3/cmm (130-400); Red Blood Count 4.66 10^6/uL (4.1-5.3); Red Cell Distribution Width 13.8 % (12.1-15.1); White Blood Count 14.4 10^3/uL (4.0-10.0)
[2022-09-27 03:09] LABS: HCG, Serum Qual Negative (Negative)
[2022-09-27 03:17] LABS: Troponin(5th) Baseline 6 ng/L (0-10)
[2022-09-27 03:19] LABS: Alanine Aminotransferase 19 U/L (0-33); Albumin Level 3.9 g/dL (3.5-5.2); Alkaline Phosphatase 82 U/L (35-105); Aspartate Amino Transferase 13 U/L (0-32); Blood Urea Nitrogen 11 mg/dL (6-20); Calcium 8.8 mg/dL (8.5-10.5); Carbon Dioxide 24 mmol/L (22-29); Chloride 99 mmol/L (98-107); Globulin 3.1 g/dL (1.3-4.6); Glomerular Filtration Rate 87.4 mL/min (90-130); Glucose 166 mg/dL (65-115); Osmolality Calculated 285 mOsm/kg (285-295); Sodium 136 mmol/L (136-145); Total Bilirubin 0.3 mg/dL (0.15-1.2)
[2022-09-27] MEDS: acetaminophen 1,000 MG/100 ML PIGGYBACK 400 MG IV (03:25)
[2022-09-27 05:00] VITALS: BP 100/50; PULSE 86; RESP 16; O2SAT 92
== END 2022-09-27 05:11 | disposition home or self-care (01) ==
PROVIDERS: Physician Assistant; Emergency Provider Emergency Medicine; PCP Family Medicine
DX: R51.9 Headache, unspecified (principal); R11.2 Nausea with vomiting, unspecified; F17.210 Nicotine dependence, cigarettes, uncomplicated; F17.290 Nicotine dependence, other tobacco product, uncomplicated
CPT/HCPCS: 36416; 80053; 82962; 84484; 84703; 85025; 93005; 96374; 96375; 99285; J0131; J1200; J2765; J7030

== ENCOUNTER → 2022-11-04 17:56 | Outpatient (BNVA) | payer MEDICAID, SELFPAY | PROVIDERS: Visit Provider Emergency Medicine | DX: R19.8 Other specified symptoms and signs involving the digestive system and abdomen (principal) | CPT/HCPCS: 81025 ==

== ENCOUNTER → 2022-11-12 13:59 | Outpatient (BNVA) | payer MEDICAID, SELFPAY | PROVIDERS: Visit Provider Nurse Practitioner Family | DX: Z20.822 Contact with and (suspected) exposure to COVID-19 (principal) | CPT/HCPCS: 71046; 87426 ==

== ENCOUNTER → 2022-12-14 11:04 | Outpatient (BNVA) | payer MEDICAID, SELFPAY | PROVIDERS: Visit Provider Nurse Practitioner Family | DX: R11.0 Nausea (principal); Z20.822 Contact with and (suspected) exposure to COVID-19 | CPT/HCPCS: 87426 ==

== ENCOUNTER → 2022-12-21 10:56 | Outpatient (BNVA) | payer MEDICAID, SELFPAY | PROVIDERS: Visit Provider Family Medicine | DX: R82.90 Unspecified abnormal findings in urine (principal); E66.01 Morbid (severe) obesity due to excess calories; Z68.43 Body mass index [BMI] 50.0-59.9, adult; F33.1 Major depressive disorder, recurrent, moderate; K21.9 Gastro-esophageal reflux disease without esophagitis; G47.33 Obstructive sleep apnea (adult) (pediatric); F43.12 Post-traumatic stress disorder, chronic; F60.3 Borderline personality disorder; F12.90 Cannabis use, unspecified, uncomplicated; R11.2 Nausea with vomiting, unspecified; K58.9 Irritable bowel syndrome, unspecified | CPT/HCPCS: 80053; 80061; 81000; 83036; 84439; 84443; 85025 ==

== ENCOUNTER 2023-02-07 14:45 | Emergency (ER) | payer MEDICAID, SELFPAY ==
[2023-02-07 14:51] VITALS: BP 122/68; PULSE 121; RESP 16; TEMP 37.6; O2SAT 98; BMI 53.0
--- NOTE | 2023-02-07 14:58 | ED_ITS ---
Documented by User: Tony Arreguin DO 02/09/23 06:31 HPI - Nausea/Vomiting/Diarrhea General: Chief complaint: Nausea/Vomiting/Diarrhea Stated complaint: NV, preg 5wks Time Seen by Provider: 02/07/23 14:56 Source: patient Mode of arrival: ambulatory History of Present Illness: Patient is a 28-year-old female who presents to the emergency department planing of nausea vomiting onset today. Patient took a home test last night which was reportedly positive, as well as another [facility] which was also positive. She states that today she has had approximately 30 episodes of nonbilious vomiting associated with nausea and diarrhea. This is her second and she states she did not have this issue the first time. She has a history of cannabinoid hyperemesis syndrome, borderline personality disorder, PTSD, and major depressive disorder. She is al so reporting some generalized abdominal soreness, which she states is from retching when vomiting. She has not taken anything [id number] for her symptoms. Her last meal was yesterday as she states she cannot keep food or liquid down. She denies any urinary changes, fever, chest pain, breathing difficulties, or any other symptoms. MD elicited complaint: nausea and vomiting Onset (ago): hour(s) Description of vomiting: watery Associated nausea: Yes Associated abdominal pain: Yes Location of pain: Diffuse Associated symtoms: Reports nausea; Denies chest pain or dysuria Review of Systems Const: Reports: change in appetite and other (); Denies: fever(s) or chills Card: Denies: chest pain Resp: Denies: dyspnea GI: Reports: abdominal pain, nausea, vomiting and diarrhea; Denies: hematemesis or constipation : Denies: difficulty voiding, dysuria, urinary frequency, urinary urgency or urinary hesitancy Musc: Denies: neck pain or back pain Skin/Breast: Denies: rash PFSH ED PFSH: Medical History ADHD Anxiety with depression Borderline personality disorder Breast pain in female Dysphoric mood Genital warts Major depressive disorder, recurrent, moderate Obstructive sleep apnea Post-traumatic stress disorder, chronic Surgical History History of surgery on lower extremity No pertinent past surgical history Family History Grandmother Hypertension Maternal grandmother Grandfather Cancer Maternal-breast Other CAD (coronary artery disease) Psychiatric illness Denies family history of Colon cancer Ovarian cancer Diabetes Clotting disorder Heart disease Hyperlipidemia Chronic kidney disease (CKD) Breast cancer Anesthesia complication Family history of thyroid problem Bleeding disorder Lung disease Uterine cancer Stroke Social History Smoking and tobacco/nicotine status: current every day tobacco/nicotine user e-cigarettes E-Cigarette Details: vaporizer device and with nicotine E-cig/vape details: 5 % Quit status (tobacco/nicotine): has tried quititng Number of times tried to quit tobacco: 2 Second hand smoke exposure: No Alcohol intake: former Substance/Drug Use: never Lives independently: Yes Physical Exam Const: COMMON NORMALS: no acute distress GENERAL APPEARANCE: cooperative, comfortable and anxious NUTRITIONAL APPEARANCE: obese morbidly obese ORIENTATION/CONSCIOUSNESS: Yes awake, Yes oriented to person, Yes oriented to place and Yes oriented to time HENMT: COMMON NORMALS: normocephalic, atraumatic and hearing grossly normal bilaterally HEAD & SCALP: normocephalic and atraumatic MOUTH: Normal oral and palatal mucosa present Eye: COMMON NORMALS: Equal, round and reactive pupils present, EOMs intact bilaterally and conjunctivae normal CONJUNCTIVA: Yes conjunctivae normal PUPIL: Yes Equal, round and reactive pupils present Resp: COMMON NORMALS: normal respiratory effort, No retractions, No use of accessory muscles and clear to auscultation bilaterally AUSCULTATION: clear to auscultation bilaterally Cardio: COMMON NORMALS: regular rate, regular rhythm and No murmurs present (Cardio) RATE: regular rate RHYTHM: regular rhythm GI: COMMON NORMALS: Soft to palpation and No hepatosplenomegaly present AUSCULTATION: Yes normoactive bowel sounds PALPATION: Yes Soft to palpation, No Tenderness to palpation present (GI), No Guarding due to palpation present (GI) and Yes No hepatosplenomegaly present Extremity: COMMON NORMALS: normal to inspection, capillary refill normal, no clubbing, cyanosis or edema, no calf tenderness and no pedal edema Neuro: SENSORIUM/ORIENTATION: Yes oriented to person, Yes oriented to place and Yes oriented to time Skin: COMMON NORMALS: no rashes or lesions noted GENERAL SKIN EXAM: no rashes or lesions noted Course Vital Signs: Vital signs: Vital Signs Temperature 99.6 F 02/07/23 14:51 Pulse Rate 73 02/07/23 17:54 Respiratory Rate 18 02/07/23 17:54 Blood Pressure 132/73 02/07/23 17:54 Pulse Oximetry 100 02/07/23 17:54 Oxygen Delivery Me thod Room Air 02/07/23 17:54 MDM - Nausea/Vomiting/Diarrhea Medical Decision Making Patient initially seen by CAROL ANN Stein student. Reviewed and discussed case with him. Care signed out to Dr. Clinton at change of shift. See final notes for diagnosis and disposition. Patient presents with hyperemesis gravidarum she also has UTI she feels much improved here we will prescribe her Reglan along with Keflex for home. No definite IUP seen on ultrasound but no signs of ectopic likely an early she is to follow with OB to confirm patient to return if worsening she understands agrees to plan Lab Data 02/07/23 15:06 02/07/23 15:06 Radiology Impressions Obstetrics Ultrasound 02/07/23 16:10 IMPRESSION: 1. Single intrauterine gestation with a visible yolk sac but no visible pole. This is most likely a normal early . Follow-up with viability ultrasound in 7-14 days can be performed. Laboratory Results WBC 10.92 10^3/uL (3.29-11.43) 02/07/23 15:06 RBC 5.11 10^6/uL (3.85-5.65) 02/07/23 15:06 Hgb 13.80 g/dL (11.27-16.99) 02/07/23 15:06 Hct 43.6 % (36-47) 02/07/23 15:06 MCV 85.3 fl (85-98) 02/07/23 15:06 MCH 27.0 pg (27-33) 02/07/23 15:06 MCHC 31.7 g/dL (30-55) 02/07/23 15:06 RDW 13.7 % (12.1-15.1) 02/07/23 15:06 Plt Count 350 10^3/cmm (157-399) 02/07/23 15:06 MPV 9.9 fL (7.4-10.4) 02/07/23 15:06 Neut % (Auto) 87.3 % 02/07/23 15:06 Lymph % (Auto) 8.9 % 02/07/23 15:06 [place] % (Auto) 3.0 % 02/07/23 15:06 Eos % (Auto) 0.2 % 02/07/23 15:06 Baso % (Auto) 0.1 % 02/07/23 15:06 Neut # (Auto) 9.53 10^3/uL (1.8-7.7) H 02/07/23 15:06 Lymph # (Auto) 1.0 10^3/uL (0.8-4.8) 02/07/23 15:06 [place] # (Auto) 0.3 10^3/uL (0.2-0.9) 02/07/23 15:06 Eos # (Auto) 0.0 10^3/uL (0.0-0.8) 02/07/23 15:06 Baso # (Auto) 0.0 10^3/uL (0.0-0.1) 02/07/23 15:06 Nucleated RBC % (auto) 0 % 02/07/23 15:06 Nucleated RBCs # 0.0 /100WBC 02/07/23 15:06 Sodium 134 mmol/L (136-145) L 02/07/23 15:06 Potassium 3.9 mmol/L (3.5-5.1) 02/07/23 15:06 Chloride 101 mmol/L (98-107) 02/07/23 15:06 Carbon Dioxide 22 mmol/L (22-29) 02/07/23 15:06 Anion Gap 14.9 (5-19) 02/07/23 15:06 BUN 9 mg/dL (6-20) 02/07/23 15:06 Creatinine 0.6 mg/dL (0.5-0.9) 02/07/23 15:06 GFR Calculation 120.8 mL/min (90-130) 02/07/23 15:06 Glucose 97 mg/dL (65-115) 02/07/23 15:06 Calculated Osmolality 277 mOsm/kg (285-295) L 02/07/23 15:06 Calcium 9.0 mg/dL (8.5-10.5) 02/07/23 15:06 Total Bilirubin 0.5 mg/dL (0.15-1.2) 02/07/23 15:06 AST 21 U/L (0-32) 02/07/23 15:06 ALT 30 U/L (0-33) 02/07/23 15:06 Alkaline Phosphatase 80 U/L (35-105) 02/07/23 15:06 Total Protein 8.0 g/dL (6.6-8.7) 02/07/23 15:06 Albumin 4.0 g/dL (3.5-5.2) 02/07/23 15:06 Globulin 4.0 g/dL (1.3-4.6) 02/07/23 15:06 Ser , Semi-Qnt 57213.00 mIU/mL 02/07/23 15:06 Urine Color Yellow (Yellow) 02/07/23 16:33 Urine Appearance Cloudy (CLEAR) A 02/07/23 16:33 Urine pH 6.5 (5-7) 02/07/23 16:33 Ur Specific [place] 1.015 (1.005-1.030) 02/07/23 16:33 Urine Protein Trace (Negative) 02/07/23 16:33 Urine Glucose (UA) Norm (Normal) 02/07/23 16:33 Urine Ketones 2+ (Negative) H 02/07/23 16:33 Urine Blood Neg (Negative) 02/07/23 16:33 Urine Nitrate Negative (Negative) 02/07/23 16:33 Urine Bilirubin Neg (Negative) 02/07/23 16:33 Urine Urobilinogen Norm mg/dL (Negative) 02/07/23 16:33 Ur Leukocyte Esterase 2+ (Negative) H 02/07/23 16:33 Urine RBC 0-4 /hpf (0-2) H 02/07/23 16:33 Urine WBC 5-10 /hpf (0-5) H 02/07/23 16:33 Ur Squamous Epith Cells 25-40 /hpf (0-5) H 02/07/23 16:33 Ur Transition Epith Cell 5-10 /hpf 02/07/23 16:33 Amorphous Sediment Not Reportable 02/07/23 16:33 Urine Bacteria 2+ /hpf (NONE) H 02/07/23 16:33 Urine Mucus 1+ /hpf 02/07/23 16:33 Discharge Plan Discharge Patient Disposition: Home Clinical Impression: Vomiting affecting , Acute cystitis Condition: Stable Prescriptions: New cephalexin 500 mg capsule 500 mg PO TID 7 Days Qty: 21 0RF Reglan 10 mg tablet 10 mg PO Q6H PRN (Reason: nausea and vomiting) Qty: 20 0RF No Action (DME) CPAP 14 setting See Rx Instructions .ROUTE .MEDSUPPLY Qty: 1 0RF Rx Instructions: As directed (DME) CPAP mask, tubing, supplies See Rx Instructions .ROUTE .MEDSUPPLY Qty: 1 1RF Rx Instructions: As directed Discharge Orders: Discharge ED (Routine); Ordered 02/07/23 Ordered By: Harley Clinton Referrals: Roberto Art MD [Physician] - 1-3 days Discharge Diet: Advance as tolerated Discharge Activity: Resume usual activity Patient Instructions: Hyperemesis Gravidarum (ED), Urinary Tract Infection in (ED) Stand Alone Forms: Work/School Release Coding Level of Care Code ED Plastics Patternmaker for Chg Fwd Documented by User: Harley Clinton MD 02/07/23 19:02 HPI - Nausea/Vomiting/Diarrhea General: Chief complaint: Nausea/Vomiting/Diarrhea Stated complaint: NV, preg 5wks Time Seen by Provider: 02/07/23 14:56 PFSH ED PFSH: Medical History ADHD Anxiety with depression Borderline personality disorder Breast pain in female Dysphoric mood Genital warts Major depressive disorder, recurrent, moderate Obstructive sleep apnea Post-traumatic stress disorder, chronic Surgical History History of surgery on lower extremity No pertinent past surgical history Family History Grandmother Hypertension Maternal grandmother Grandfather Cancer Maternal-breast Other CAD (coronary artery disease) Psychiatric illness Denies family history of Colon cancer Ovarian cancer Diabetes Clotting disorder Heart disease Hyperlipidemia Chronic kidney disease (CKD) Breast cancer Anesthesia complication Family history of thyroid problem Bleeding disorder Lung disease Uterine cancer Stroke Social History Smoking and tobacco/nicotine status: current every day tobacco/nicotine user e-cigarettes E-Cigarette Details: vaporizer device and with nicotine E-cig/vape details: 5 % Quit status (tobacco/nicotine): has tried quititng Number of times tried to quit tobacco: 2 Second hand smoke exposure: No Alcohol intake: former Substance/Drug Use: never Lives independently: Yes Course Vital Signs: Vital signs: Vital Signs Temperature 99.6 F 02/07/23 14:51 Pulse Rate 73 02/07/23 17:54 Respiratory Rate 18 02/07/23 17:54 Blood Pressure 132/73 02/07/23 17:54 Pulse Oximetry 100 02/07/23 17:54 Oxygen Delivery Me thod Room Air 02/07/23 17:54 MDM - Nausea/Vomiting/Diarrhea Medical Decision Making Patient presents with hyperemesis gravidarum she also has UTI she feels much improved here we will prescribe her Reglan along with Keflex for home. No definite IUP seen on ultrasound but no signs of ectopic likely an early she is to follow with OB to confirm patient to return if worsening she understands agrees to plan Medical Records I reviewed the patient's medical records. Lab Data I reviewed the patient's lab results. 02/07/23 15:06 02/07/23 15:06 Radiology Impressions Obstetrics Ultrasound 02/07/23 16:10 IMPRESSION: 1. Single intrauterine gestation with a visible yolk sac but no visible pole. This is most likely a normal early . Follow-up with viability ultrasound in 7-14 days can be performed. Laboratory Results WBC 10.92 10^3/uL (3.29-11.43) 02/07/23 15:06 RBC 5.11 10^6/uL (3.85-5.65) 02/07/23 15:06 Hgb 13.80 g/dL (11.27-16.99) 02/07/23 15:06 Hct 43.6 % (36-47) 02/07/23 15:06 MCV 85.3 fl (85-98) 02/07/23 15:06 MCH 27.0 pg (27-33) 02/07/23 15:06 MCHC 31.7 g/dL (30-55) 02/07/23 15:06 RDW 13.7 % (12.1-15.1) 02/07/23 15:06 Plt Count 350 10^3/cmm (157-399) 02/07/23 15:06 MPV 9.9 fL (7.4-10.4) 02/07/23 15:06 Neut % (Auto) 87.3 % 02/07/23 15:06 Lymph % (Auto) 8.9 % 02/07/23 15:06 [place] % (Auto) 3.0 % 02/07/23 15:06 Eos % (Auto) 0.2 % 02/07/23 15:06 Baso % (Auto) 0.1 % 02/07/23 15:06 Neut # (Auto) 9.53 10^3/uL (1.8-7.7) H 02/07/23 15:06 Lymph # (Auto) 1.0 10^3/uL (0.8-4.8) 02/07/23 15:06 [place] # (Auto) 0.3 10^3/uL (0.2-0.9) 02/07/23 15:06 Eos # (Auto) 0.0 10^3/uL (0.0-0.8) 02/07/23 15:06 Baso # (Auto) 0.0 10^3/uL (0.0-0.1) 02/07/23 15:06 Nucleated RBC % (auto) 0 % 02/07/23 15:06 Nucleated RBCs # 0.0 /100WBC 02/07/23 15:06 Sodium 134 mmol/L (136-145) L 02/07/23 15:06 Potassium 3.9 mmol/L (3.5-5.1) 02/07/23 15:06 Chloride 101 mmol/L (98-107) 02/07/23 15:06 Carbon Dioxide 22 mmol/L (22-29) 02/07/23 15:06 Anion Gap 14.9 (5-19) 02/07/23 15:06 BUN 9 mg/dL (6-20) 02/07/23 15:06 Creatinine 0.6 mg/dL (0.5-0.9) 02/07/23 15:06 GFR Calculation 120.8 mL/min (90-130) 02/07/23 15:06 Glucose 97 mg/dL (65-115) 02/07/23 15:06 Calculated Osmolality 277 mOsm/kg (285-295) L 02/07/23 15:06 Calcium 9.0 mg/dL (8.5-10.5) 02/07/23 15:06 Total Bilirubin 0.5 mg/dL (0.15-1.2) 02/07/23 15:06 AST 21 U/L (0-32) 02/07/23 15:06 ALT 30 U/L (0-33) 02/07/23 15:06 Alkaline Phosphatase 80 U/L (35-105) 02/07/23 15:06 Total Protein 8.0 g/dL (6.6-8.7) 02/07/23 15:06 Albumin 4.0 g/dL (3.5-5.2) 02/07/23 15:06 Globulin 4.0 g/dL (1.3-4.6) 02/07/23 15:06 Ser , Semi-Qnt 71864.00 mIU/mL 02/07/23 15:06 Urine Color Yellow (Yellow) 02/07/23 16:33 Urine Appearance Cloudy (CLEAR) A 02/07/23 16:33 Urine pH 6.5 (5-7) 02/07/23 16:33 Ur Specific [place] 1.015 (1.005-1.030) 02/07/23 16:33 Urine Protein Trace (Negative) 02/07/23 16:33 Urine Glucose (UA) Norm (Normal) 02/07/23 16:33 Urine Ketones 2+ (Negative) H 02/07/23 16:33 Urine Blood Neg (Negative) 02/07/23 16:33 Urine Nitrate Negative (Negative) 02/07/23 16:33 Urine Bilirubin Neg (Negative) 02/07/23 16:33 Urine Urobilinogen Norm mg/dL (Negative) 02/07/23 16:33 Ur Leukocyte Esterase 2+ (Negative) H 02/07/23 16:33 Urine RBC 0-4 /hpf (0-2) H 02/07/23 16:33 Urine WBC 5-10 /hpf (0-5) H 02/07/23 16:33 Ur Squamous Epith Cells 25-40 /hpf (0-5) H 02/07/23 16:33 Ur Transition Epith Cell 5-10 /hpf 02/07/23 16:33 Amorphous Sediment Not Reportable 02/07/23 16:33 Urine Bacteria 2+ /hpf (NONE) H 02/07/23 16:33 Urine Mucus 1+ /hpf 02/07/23 16:33 All radiology interpretation(s) finalized by discharge Discharge Plan Discharge Patient Disposition: Home Clinical Impression: Vomiting affecting , Acute cystitis Condition: Stable Prescriptions: New cephalexin 500 mg capsule 500 mg PO TID 7 Days Qty: 21 0RF Reglan 10 mg tablet 10 mg PO Q6H PRN (Reason: nausea and vomiting) Qty: 20 0RF No Action (DME) CPAP 14 setting See Rx Instructions .ROUTE .MEDSUPPLY Qty: 1 0RF Rx Instructions: As directed (DME) CPAP mask, tubing, supplies See Rx Instructions .ROUTE .MEDSUPPLY Qty: 1 1RF Rx Instructions: As directed Discharge Orders: Discharge ED (Routine); Ordered 02/07/23 Ordered By: Harley Clinton Referrals: Roberto Art MD [Physician] - 1-3 days Discharge Diet: Advance as tolerated Discharge Activity: Resume usual activity Patient Instructions: Hyperemesis Gravidarum (ED), Urinary Tract Infection in (ED) Stand Alone Forms: Work/School Release Coding Level of Care Code ED Plastics Patternmaker for Suzieg Anders
[2023-02-07 15:27] LABS: Basophils % 0.1 %; Eosinophils % 0.2 %; Hematocrit 43.6 % (36-47); Lymphocytes % 8.9 %; Mean Corpuscular HGB Conc 31.7 g/dL (30-55); Mean Corpuscular Volume 85.3 fl (85-98); Mean Platelet Volume 9.9 fL (7.4-10.4); Monocytes # 0.3 10^3/uL (0.2-0.9); Neutrophils # 9.53 10^3/uL (1.8-7.7); Neutrophils % 87.3 %; Nucleated Red Blood Cells % 0 %; Platelet Count 350 10^3/cmm (157-399); Red Blood Count 5.11 10^6/uL (3.85-5.65); Red Cell Distribution Width 13.7 % (12.1-15.1); White Blood Count 10.92 10^3/uL (3.29-11.43)
[2023-02-07 15:38] LABS: Alanine Aminotransferase 30 U/L (0-33); Alkaline Phosphatase 80 U/L (35-105); Anion Gap 14.9 (5-19); Aspartate Amino Transferase 21 U/L (0-32); Blood Urea Nitrogen 9 mg/dL (6-20); Carbon Dioxide 22 mmol/L (22-29); Chloride 101 mmol/L (98-107); Glomerular Filtration Rate 120.8 mL/min (90-130); Glucose 97 mg/dL (65-115); Osmolality Calculated 277 mOsm/kg (285-295); Potassium 3.9 mmol/L (3.5-5.1); Sodium 134 mmol/L (136-145); Total Bilirubin 0.5 mg/dL (0.15-1.2)
[2023-02-07] MEDS: promethazine 25 mg/mL SDV 1 mL IM (15:40)
[2023-02-07] MEDS: sodium chloride 0.9% 1,000 ML 999 ML IV (15:40)
--- NOTE | 2023-02-07 16:10 | USR_ITS ---
PROCEDURE INFORMATION: Exam: US , Transvaginal Exam date and time: 02/07/2023 4:36 PM Age: 28 years old Clinical indication: Screening exam; Routine US, uterus; Additional info: Confirm iup LABS AND CLINICAL REPORTS: Last menstrual period start date: 01/01/2023 Gestational age (Established): 5 w 2 d Estimated due date (Established): 10/08/2023 TECHNIQUE: Imaging protocol: Real-time transvaginal obstetrical ultrasound of the maternal pelvis with image documentation. Transvaginal imaging was used for better evaluation of the fetus, adnexa, and/or cervix. COMPARISON: US OB [facility] 09/13/2017 10:01 AM FINDINGS: Gestation: Mean gestational sac diameter 1.18 cm. No pole visualized. 4 mm yolk sac. No definite heart tones detected. BIOMETRY: Gestational age (AUA): 6 w 1 d Mean sac diameter: 1.18 cm. EGA (MSD) is 6 w 1 d MATERNAL: Uterus: Uterus measures 4.47 cm x 8.23 cm x 4.94 cm. Right ovary/adnexa: Not visualized. Left ovary/adnexa: Not visualized. US/US OB lmt with transvaginal IMPRESSION: 1. Single intrauterine gestation with a visible yolk sac but no visible pole. This is most likely a normal early . Follow-up with viability ultrasound in 7-14 days can be performed.
[2023-02-07 17:54] VITALS: BP 132/73; PULSE 73; RESP 18; O2SAT 100
[2023-02-07 18:49] LABS: Add Urine Microscopic? YES; Bilirubin Urine Neg (Negative); Blood Urine Neg (Negative); Glucose Urine UA Norm (Normal); Ketones Urine 2+ (Negative); Leukocyte Esterase Urine 2+ (Negative); Nitrate Urine Negative (Negative); Protein Urine Trace (Negative); Specific Gravity, Urine 1.015 (1.005-1.030); Urine Appearance Cloudy (CLEAR); Urine Color Yellow (Yellow); Urobilinogen Urine Norm (Negative); pH Urine 6.5 (5-7)
[2023-02-07 18:53] LABS: Bacteria Urine 2+ /hpf; Mucus Urine 1+ /hpf; RBC Urine 0-4 /hpf (0-2); Squamous Epithelial Cell Urine 25-40 /hpf (0-5)
[2023-02-07 18:54] LABS: Add Urine Culture? No
== END 2023-02-07 20:00 | disposition home or self-care (01) ==
PROVIDERS: Family Medicine; Emergency Provider Emergency Medicine
DX: O21.9 Vomiting of pregnancy, unspecified (principal); O23.11 Infections of bladder in pregnancy, first trimester; O99.331 Smoking (tobacco) complicating pregnancy, first trimester; F17.290 Nicotine dependence, other tobacco product, uncomplicated; Z3A.01 Less than 8 weeks gestation of pregnancy
CPT/HCPCS: 36415; 76815; 76817; 80053; 81001; 84702; 85025; 96372; 99284; J2550; J7030

== ENCOUNTER 2023-03-15 20:01 | Emergency (ER) | payer MEDICAID, SELFPAY ==
[2023-03-15 20:08] VITALS: BP 117/83; PULSE 90; RESP 16; TEMP 36.6; O2SAT 97; BMI 51.2
[2023-03-15 20:55] LABS: Basophils % 0.3 %; Eosinophils # 0.1 10^3/uL (0.0-0.8); Eosinophils % 0.9 %; Hematocrit 37.3 % (36-47); Lymphocytes # 2.8 10^3/uL (0.8-4.8); Lymphocytes % 26.7 %; Mean Corpuscular HGB Conc 32.7 g/dL (30-55); Mean Corpuscular Hemoglobin 27.4 pg (27-33); Mean Corpuscular Volume 83.6 fl (85-98); Mean Platelet Volume 9.9 fL (7.4-10.4); Monocytes # 0.6 10^3/uL (0.2-0.9); Monocytes % 5.4 %; Neutrophils % 66.3 %; Nucleated Red Blood Cells % 0 %; Platelet Count 360 10^3/cmm (157-399); Red Blood Count 4.46 10^6/uL (3.85-5.65); Red Cell Distribution Width 13.6 % (12.1-15.1); White Blood Count 10.56 10^3/uL (3.29-11.43)
--- NOTE | 2023-03-15 21:13 | USR_ITS ---
PROCEDURE INFORMATION: Exam: US First Trimester, Transabdominal and US Duplex Artery and Vein, Ovaries, Complete. Duplex exam was performed to evaluate for torsion and other vascular conditions. Exam date and time: 03/15/2023 10:34 PM Age: 28 years old Clinical indication: complicated by abdominal or pelvic pain; Lower; First trimester (<14 weeks 0 days); Gestational age or lmp: 10w2d per patient 11w2d per US; ; Additional info: Cramping, US 02/07 w/o pole or cardiac- recommended repeat. No LABS AND CLINICAL REPORTS: Last menstrual period start date: 01/02/2023 Gestational age (Established): 10 w 2 d Estimated due date (Established): 10/09/2023 TECHNIQUE: Imaging protocol: Real-time transabdominal obstetrical ultrasound of the maternal pelvis and a first trimester , less than 14 weeks 0 days, with image documentation. Real-time duplex ultrasound scan of the arterial and venous flow of the ovaries with B-mode, color Doppler flow and spectral waveform analysis, complete duplex. Duplex exam was performed to evaluate for torsion and other vascular conditions. COMPARISON: US OB limited [id number] 02/07/2023 4:36 PM FINDINGS: Gestation: Intrauterine gestation. Yolk sac is unremarkable. pole unremarkable in appearance. Embryonic/ heart rate: 167 bpm Extra-embryonic membranes/Placenta: Unremarkable. No subchorionic bleed. Amniotic fluid: Amniotic fluid and extra-amniotic fluid is normal for gestational age. BIOMETRY: Gestational age (AUA): 11 w 2 d [place]ump length (CRL): 43.8 mm. EGA (CRL) is 11 w 2 d MATERNAL: Uterus: Unremarkable. Cervix: Cervical length measures 3.25 cm. Right ovary/adnexa: Not visible. Left ovary/adnexa: Unremarkable ovary. Unremarkable vascularity. Normal color Doppler signals. Normal arterial and venous spectral Doppler waveforms. Intraperitoneal space: No intraperitoneal free fluid. US/US OB <= 14 weeks fetus [id number] IMPRESSION: 1. Single live intrauterine gestation. 2. Negative for acute abnormality.
[2023-03-15 21:17] LABS: Alanine Aminotransferase 15 U/L (0-33); Albumin Level 3.7 g/dL (3.5-5.2); Alkaline Phosphatase 76 U/L (35-105); Anion Gap 11.9 (5-19); Aspartate Amino Transferase 10 U/L (0-32); Blood Urea Nitrogen 6 mg/dL (6-20); Carbon Dioxide 22 mmol/L (22-29); Chloride 104 mmol/L (98-107); Globulin 3.3 g/dL (1.3-4.6); Glomerular Filtration Rate 149.1 mL/min (90-130); Glucose 100 mg/dL (65-115); Osmolality Calculated 276 mOsm/kg (285-295); Potassium 3.9 mmol/L (3.5-5.1); Sodium 134 mmol/L (136-145); Total Bilirubin 0.2 mg/dL (0.15-1.2)
--- NOTE | 2023-03-15 21:47 | ED_ITS ---
HPI - Female Genitourinary 2 General: Chief complaint: Urogenital-Female Stated complaint: 10 wks preg cramping Time Seen by Provider: 03/15/23 20:22 Source: patient Mode of arrival: ambulatory Limitations: no limitations History of Present Illness: Patient presents emergency department today accompanied by significant other for evaluation treatment of low abdominal cramping in . Patient chart review shows she was seen and evaluated here in the emergency department on 02/07 and at that time, ultrasound did not confirm pole or cardiac activity and recommendation for repeat ultrasound in 1 to 2 weeks was noted by the radiologist. Patient states she went to the resource center and had an ultrasound there and they were able to get cardiac activity however, we do not have record of this-neither does the patient. Patient reports that she has started to develop low abdominal pains. She denies significant vomiting though she was noted to have vomiting on her evaluation last month. This is her second . She denies vaginal bleeding, recent illness, dysuria, fever, or noticeable green/yellow vaginal discharge. Per patient report, she is approximately 10 weeks. Review of Systems 2 General: Reports: 10 or more systems reviewed and unremarkable except in HPI and below PFSH ED 2 PFSH: Medical History Obstructive sleep apnea Major depressive disorder, recurrent, moderate Dysphoric mood Breast pain in female Genital warts Anxiety with depression ADHD Borderline personality disorder Post-traumatic stress disorder, chronic Surgical History History of surgery on lower extremity No pertinent past surgical history Family History Grandmother Hypertension Maternal grandmother Grandfather Cancer Maternal-breast Other CAD (coronary artery disease) Psychiatric illness Denies family history of Colon cancer Ovarian cancer Diabetes Clotting disorder Heart disease Hyperlipidemia Chronic kidney disease (CKD) Breast cancer Anesthesia complication Family history of thyroid problem Bleeding disorder Lung disease Uterine cancer Stroke Social History Smoking and tobacco/nicotine status: current every day tobacco/nicotine user e- cigarettes E-Cigarette Details: vaporizer device and with nicotine E-cig/vape details: 5 % Quit status (tobacco/nicotine): has tried quititng Number of times tried to quit tobacco: 2 Second hand smoke exposure: No Alcohol intake: former Substance/Drug Use: never Lives independently: Yes Physical Exam 2 Const: COMMON NORMALS: no acute distress, patient oriented x3, healthy appearing and alert HENMT: COMMON NORMALS: normocephalic, atraumatic, hearing grossly normal bilaterally and moist oral mucous membranes HEAD & SCALP: normocephalic and atraumatic Eye: COMMON NORMALS: Equal, round and reactive pupils present, EOMs intact bilaterally and conjunctivae normal CONJUNCTIVA: Yes conjunctivae normal P UPIL: Yes Equal, round and reactive pupils present Neck/C-Spine: COMMON NORMALS: no JVD Lymph: LYMPHATIC: no lymphadenopathy noted Resp: COMMON NORMALS: normal respiratory effort, No retractions and No use of accessory muscles Cardio: COMMON NORMALS: no JVD and regular rate RATE: regular rate GI: COMMON NORMALS: Normal to inspection, nondistended, normoactive bowel sounds present and Soft to palpation PALPATION: Yes Soft to palpation O THER: Patient indicates pain across low suprapubic region with some radiation up the right suprapubic region towards the bellybutton. Back/Pelvis: THORACIC SPINE/UPPER BACK: Yes thoracic ROM normal LUMBAR SPINE/LOWER BACK: Yes lumbar ROM normal Extremity: COMMON NORMALS: normal to inspection, full ROM and capillary refill normal NARRATIVE EXTREMITY EXAM: Independently ambulatory and weightbearing in the emergency department. Neuro: COMMON NORMALS: patient oriented x3 SENSORIUM/ORIENTATION: Yes alert Psych: COMMON NORMALS: mental status grossly normal, cooperative, normal affect, speech normal and activity/motor behavior normal SPEECH: Yes normal speech Course 2 Vital Signs: Vital signs: Vital Signs Temperature 97.9 F 03/15/23 20:08 Pulse Rate 89 03/15/23 23:48 Respiratory Rate 18 03/15/23 23:48 Blood Pressure 117/83 03/15/23 20:08 Pulse Oximetry 96 03/15/23 23:48 MDM - Female Medical Decision Making Ultrasound here today confirms IUP measuring approximately 11 weeks. heart tones in the 160s. No other acute concerns on ultrasound. Lab work is unremarkable but urinalysis does show bacteria, leukocytes, and increased white blood cell count. Given her status I did discuss with her starting treatment for urinary tract infection. She states she has a history of issues with urinary tract infections and we discussed concerns of UTI while . Patient was given a first dose of medication here in the emergency department and we will culture her urine out over the next 48 hours. Patient has an upcoming appointment with [facility] to establish care. She needs to keep this appointment. She was told to watch for new onset fever, vomiting, or vaginal bleeding for which she should be seen and reevaluated. I have no concerns for acute abdomen at this time based off of her vital signs, physical examination, and lab evaluations. Differential Diagnosis Likely abdominal pain; Unlikely acute appendicitis, calculus of kidney, constipation, diverticulitis, gastroenteritis or small bowel obstruction Lab Data 03/15/23 20:35 03/15/23 20:35 Radiology Impressions Ultrasound 03/15/23 21:13 IMPRESSION: 1. Single live intrauterine gestation. 2. Negative for acute abnormality. Laboratory Results WBC 10.56 10^3/uL (3.29-11.43) 03/15/23 20:35 RBC 4.46 10^6/uL (3.85-5.65) 03/15/23 20:35 Hgb 12.20 g/dL (11.27-16.99) 03/15/23 20:35 Hct 37.3 % (36-47) 03/15/23 20:35 MCV 83.6 fl (85-98) L 03/15/23 20:35 MCH 27.4 pg (27-33) 03/15/23 20:35 MCHC 32.7 g/dL (30-55) 03/15/23 20:35 RDW 13.6 % (12.1-15.1) 03/15/23 20:35 Plt Count 360 10^3/cmm (157-399) 03/15/23 20:35 MPV 9.9 fL (7.4-10.4) 03/15/23 20:35 Neut % (Auto) 66.3 % 03/15/23 20:35 Lymph % (Auto) 26.7 % 03/15/23 20:35 [place] % (Auto) 5.4 % 03/15/23 20:35 Eos % (Auto) 0.9 % 03/15/23 20:35 Baso % (Auto) 0.3 % 03/15/23 20:35 Neut # (Auto) 7.00 10^3/uL (1.8-7.7) 03/15/23 20:35 Lymph # (Auto) 2.8 10^3/uL (0.8-4.8) 03/15/23 20:35 [place] # (Auto) 0.6 10^3/uL (0.2-0.9) 03/15/23 20:35 Eos # (Auto) 0.1 10^3/uL (0.0-0.8) 03/15/23 20:35 Baso # (Auto) 0.0 10^3/uL (0.0-0.1) 03/15/23 20:35 Nucleated RBC % (auto) 0 % 03/15/23 20:35 Nucleated RBCs # 0.0 /100WBC 03/15/23 20:35 Sodium 134 mmol/L (136-145) L 03/15/23 20:35 Potassium 3.9 mmol/L (3.5-5.1) 03/15/23 20:35 Chloride 104 mmol/L (98-107) 03/15/23 20:35 Carbon Dioxide 22 mmol/L (22-29) 03/15/23 20:35 Anion Gap 11.9 (5-19) 03/15/23 20:35 BUN 6 mg/dL (6-20) 03/15/23 20:35 Creatinine 0.5 mg/dL (0.5-0.9) 03/15/23 20:35 GFR Calculation 149.1 mL/min (90-130) H 03/15/23 20:35 Glucose 100 mg/dL (65-115) 03/15/23 20:35 Calculated Osmolality 276 mOsm/kg (285-295) L 03/15/23 20:35 Calcium 9.0 mg/dL (8.5-10.5) 03/15/23 20:35 Total Bilirubin 0.2 mg/dL (0.15-1.2) 03/15/23 20:35 AST 10 U/L (0-32) 03/15/23 20:35 ALT 15 U/L (0-33) 03/15/23 20:35 Alkaline Phosphatase 76 U/L (35-105) 03/15/23 20:35 Total Protein 7.0 g/dL (6.6-8.7) 03/15/23 20:35 Albumin 3.7 g/dL (3.5-5.2) 03/15/23 20:35 Globulin 3.3 g/dL (1.3-4.6) 03/15/23 20:35 Urine Color Yellow (Yellow) 03/15/23 23:16 Urine Appearance Hazy (CLEAR) A 03/15/23 23:16 Urine pH 6 (5-7) 03/15/23 23:16 Ur Specific [place] 1.015 (1.005-1.030) 03/15/23 23:16 Urine Protein Neg (Negative) 03/15/23 23:16 Urine Glucose (UA) Norm (Normal) 03/15/23 23:16 Urine Ketones Negative (Negative) 03/15/23 23:16 Urine Blood Neg (Negative) 03/15/23 23:16 Urine Nitrate Negative (Negative) 03/15/23 23:16 Urine Bilirubin Neg (Negative) 03/15/23 23:16 Urine Urobilinogen Norm mg/dL (Negative) 03/15/23 23:16 Ur Leukocyte Esterase 2+ (Negative) H 03/15/23 23:16 Urine RBC 0-4 /hpf (0-2) H 03/15/23 23:16 Urine WBC 5-10 /hpf (0-5) H 03/15/23 23:16 Ur Squamous Epith Cells 15-25 /hpf (0-5) H 03/15/23 23:16 Amorphous Sediment 1+ /hpf 03/15/23 23:16 Urine Bacteria 1+ /hpf (NONE) H 03/15/23 23:16 Urine Mucus 1+ /hpf 03/15/23 23:16 All radiology interpretation(s) finalized by discharge Discharge Plan Discharge Patient Disposition: Home Clinical Impression: UTI (urinary tract infection) during , Abdominal pain affecting Condition: Stable Prescriptions: New cefdinir 300 mg capsule 300 mg PO BID 7 Days Qty: 14 0RF No Action (DME) CPAP 14 setting See Rx Instructions .ROUTE .MEDSUPPLY Qty: 1 0RF Rx Instructions: As directed (DME) CPAP mask, tubing, supplies See Rx Instructions .ROUTE .MEDSUPPLY Qty: 1 1RF Rx Instructions: As directed Reglan 10 mg tablet 10 mg PO Q6H PRN (Reason: nausea and vomiting) Qty: 20 0RF Discharge Orders: Discharge ED (Routine); Ordered 03/15/23 Ordered By: Lilian Mckeon Discharge Diet: Usual diet Discharge Activity: Increase activity as tolerated Patient Instructions: Urinary Tract Infection in (ED) Activity Restrictions/Additional Instructions: Ultrasound today reveals no acute concerns. Your lab work is generally unremarkable but your urinalysis is concerning for an infection. Given your status we will treat with an antibiotic starting today with a prescription sent to the pharmacy to be continued in the morning. We will culture your urine to assure proper antibiotic coverage and to determine any definitive bacterial growth. Keep your upcoming appointment with [facility]. Watch for any new onset fever or vaginal bleeding for which she should be seen and reevaluated again. Coding Level of Care Code ED Crane Manager for Eleanor Mcnamara
[2023-03-15 23:25] LABS: Specific Gravity, Urine 1.015 (1.005-1.030); Urine Appearance Hazy (CLEAR); Urine Color Yellow (Yellow); pH Urine 6 (5-7)
[2023-03-15 23:26] LABS: Add Urine Microscopic? YES; Amorphous Sediment Urine 1+ /hpf; Bacteria Urine 1+ /hpf; Bilirubin Urine Neg (Negative); Blood Urine Neg (Negative); Glucose Urine UA Norm (Normal); Ketones Urine Negative (Negative); Leukocyte Esterase Urine 2+ (Negative); Mucus Urine 1+ /hpf; Nitrate Urine Negative (Negative); Protein Urine Neg (Negative); RBC Urine 0-4 /hpf (0-2); Squamous Epithelial Cell Urine 15-25 /hpf (0-5); Urobilinogen Urine Norm (Negative)
[2023-03-15 23:48] VITALS: PULSE 89; RESP 18; O2SAT 96
== END 2023-03-15 23:46 | disposition home or self-care (01) ==
PROVIDERS: Emergency Provider Physician Assistant
DX: O23.41 Unspecified infection of urinary tract in pregnancy, first trimester (principal); N39.0 Urinary tract infection, site not specified; Z3A.10 10 weeks gestation of pregnancy; F17.290 Nicotine dependence, other tobacco product, uncomplicated
CPT/HCPCS: 36415; 76801; 80053; 81001; 85025; 87086; 99284

== ENCOUNTER 2023-03-31 09:19 | Emergency (ER) | payer MEDICAID, SELFPAY ==
[2023-03-31 09:29] VITALS: BP 124/74; PULSE 90; RESP 16; TEMP 36.6; O2SAT 99; BMI 53.0
--- NOTE | 2023-03-31 09:54 | PC.PHAR ---
pt states she takes care of her own medications-pt states she finished an antibiotic last week states she is unsure of the name called sidney not open yet to verify what antibiotic was-ext shows last filled keflex 500mg tid on 02/11/23 7d/s
[2023-03-31] MEDS: sodium chloride 0.9% 1,000 ML 999 ML IV (09:58)
[2023-03-31] MEDS: ondansetron 2 mg/ML SDV 2 mL 4 MG IVP (09:58)
--- NOTE | 2023-03-31 10:01 | W.ED.ABDPA2 ---
HPI - Abdominal Pain General: Chief Complaint: Abdominal Pain Stated Complaint: 12 weeks , abd pain Time Seen by Provider: 03/31/23 09:32 History of Present Illness: 28-year-old female presents emergency department complaints of having several episodes of nausea vomiting over the previous 2 to 3 days. She states she also felt like she may have been having abdominal contractions although she denies vaginal discharge or difficulty with her current . She states she has had confirmation of intrauterine via ultrasound prior to coming to the emergency department today. She denies fevers chills or night sweats or vaginal discharge or bleeding. Associated Symptoms: Reports nausea and vomiting Review of Systems General: Reports: 10 or more systems reviewed and unremarkable except in HPI and below GI: Reports: nausea and vomiting PFSH ED PFSH: Medical History Obstructive sleep apnea Major depressive disorder, recurrent, moderate Dysphoric mood Breast pain in female Genital warts Anxiety with depression ADHD Borderline personality disorder Post-traumatic stress disorder, chronic Surgical History History of surgery on lower extremity No pertinent past surgical history Family History Grandmother Hypertension Maternal grandmother Grandfather Cancer Maternal-breast Other CAD (coronary artery disease) Psychiatric illness Denies family history of Colon cancer Ovarian cancer Diabetes Clotting disorder Heart disease Hyperlipidemia Chronic kidney disease (CKD) Breast cancer Anesthesia complication Family history of thyroid problem Bleeding disorder Lung disease Uterine cancer Stroke Social History Smoking and tobacco/nicotine status: current every day tobacco/nicotine user e-cigarettes E-Cigarette Details: vaporizer device and with nicotine E-cig/vape details: 5 % Quit status (tobacco/nicotine): has tried quititng Number of times tried to quit tobacco: 2 Second hand smoke exposure: No Alcohol intake: former Substance/Drug Use: never Lives independently: Yes Physical Exam Narrative: EXAM NARRATIVE: Constitutional: the patient appears well nourished and of normal development. Vital signs as documented. No acute distress at present. Alert and oriented-to person, place, time and situation. Head, eyes, ears, nose, mouth, throat: Normocephalic, atraumatic. Pupils-equal, round, reactive to light. No scleral icterus. Normal-appearing external ears. Normal appearing nasal turbinates, no drainage. No obvious oral lesions, posterior oropharynx without erythema or exudates. Neck: Supple, trachea is midline, no lymphadenopathy, no jugular venous distension, thyromegaly, or carotid bruits. Carotid upstrokes are brisk bilaterally. Lungs: clear to auscultation to all lung fabian. Symmetrical rise and fall of chest, no obvious signs of increased work of breathing at present. Cardiac: Regular rate and rhythm, positive S1, S2. No murmurs, rubs or gallops that I can appreciate Abdomen: Soft, non-tender to palpation, normal active bowel sounds to all quadrants. No palpable masses, no organomegaly and abdominal bruits. Extremities: 2+ pulses in the upper extremities that are equal bilaterally, 2+ pulses in the lower extremities that are equal bilaterally. Non-edematous. Moves all extremities well, sensation to all extremities are noted. Skin: Warm, dry, intact. Course Vital Signs: Vital signs: Vital Signs Temperature 97.8 F 03/31/23 09:29 Pulse Rate 90 03/31/23 09:29 Respiratory Rate 16 03/31/23 09:29 Blood Pressure 124/74 03/31/23 09:29 Pulse Oximetry 99 03/31/23 09:29 Oxygen Delivery Me thod Room Air 03/31/23 09:29 MDM - Abdominal Pain Medical Decision Making Physical exam completed and documented I will obtain a CBC and a CMP as well as provide antiemetic. Medical Records I reviewed the patient's medical records. Lab Data I reviewed the patient's lab results. 03/31/23 09:51 03/31/23 09:51 Labs/Radiology: Laboratory Results WBC 7.88 10^3/uL (3.29-11.43) 03/31/23 09:51 RBC 4.52 10^6/uL (3.85-5.65) 03/31/23 09:51 Hgb 12.30 g/dL (11.27-16.99) 03/31/23 09:51 Hct 37.5 % (36-47) 03/31/23 09:51 MCV 83.0 fl (85-98) L 03/31/23 09:51 MCH 27.2 pg (27-33) 03/31/23 09:51 MCHC 32.8 g/dL (30-55) 03/31/23 09:51 RDW 13.4 % (12.1-15.1) 03/31/23 09:51 Plt Count 315 10^3/cmm (157-399) 03/31/23 09:51 MPV 9.9 fL (7.4-10.4) 03/31/23 09:51 Neut % (Auto) 64.8 % 03/31/23 09:51 Lymph % (Auto) 27.3 % 03/31/23 09:51 [place] % (Auto) 6.2 % 03/31/23 09:51 Eos % (Auto) 0.9 % 03/31/23 09:51 Baso % (Auto) 0.3 % 03/31/23 09:51 Neut # (Auto) 5.11 10^3/uL (1.8-7.7) 03/31/23 09:51 Lymph # (Auto) 2.2 10^3/uL (0.8-4.8) 03/31/23 09:51 [place] # (Auto) 0.5 10^3/uL (0.2-0.9) 03/31/23 09:51 Eos # (Auto) 0.1 10^3/uL (0.0-0.8) 03/31/23 09:51 Baso # (Auto) 0.0 10^3/uL (0.0-0.1) 03/31/23 09:51 Nucleated RBC % (auto) 0 % 03/31/23 09:51 Nucleated RBCs # 0.0 /100WBC 03/31/23 09:51 Sodium 133 mmol/L (136-145) L 03/31/23 09:51 Potassium 3.9 mmol/L (3.5-5.1) 03/31/23 09:51 Chloride 102 mmol/L (98-107) 03/31/23 09:51 Carbon Dioxide 22 mmol/L (22-29) 03/31/23 09:51 Anion Gap 12.9 (5-19) 03/31/23 09:51 BUN 7 mg/dL (6-20) 03/31/23 09:51 Creatinine 0.5 mg/dL (0.5-0.9) 03/31/23 09:51 GFR Calculation 149.1 mL/min (90-130) H 03/31/23 09:51 Glucose 90 mg/dL (65-115) 03/31/23 09:51 Calculated Osmolality 274 mOsm/kg (285-295) L 03/31/23 09:51 Calcium 9.1 mg/dL (8.5-10.5) 03/31/23 09:51 Total Bilirubin 0.2 mg/dL (0.15-1.2) 03/31/23 09:51 AST 9 U/L (0-32) 03/31/23 09:51 ALT 13 U/L (0-33) 03/31/23 09:51 Alkaline Phosphatase 73 U/L (35-105) 03/31/23 09:51 Total Protein 7.0 g/dL (6.6-8.7) 03/31/23 09:51 Albumin 3.5 g/dL (3.5-5.2) 03/31/23 09:51 Globulin 3.5 g/dL (1.3-4.6) 03/31/23 09:51 Ser , Semi-Qnt 42975.00 mIU/mL 03/31/23 09:51 Urine Color Yellow (Yellow) 03/31/23 10:57 Urine Appearance Sl hazy (CLEAR) A 03/31/23 10:57 Urine pH 6 (5-7) 03/31/23 10:57 Ur Specific [place] 1.015 (1.005-1.030) 03/31/23 10:57 Urine Protein Neg (Negative) 03/31/23 10:57 Urine Glucose (UA) Norm (Normal) 03/31/23 10:57 Urine Ketones Negative (Negative) 03/31/23 10:57 Urine Blood Neg (Negative) 03/31/23 10:57 Urine Nitrate Negative (Negative) 03/31/23 10:57 Urine Bilirubin 1+ (Negative) H 03/31/23 10:57 Urine Urobilinogen Norm mg/dL (Negative) 03/31/23 10:57 Ur Leukocyte Esterase 2+ (Negative) H 03/31/23 10:57 Urine RBC 0-4 /hpf (0-2) H 03/31/23 10:57 Urine WBC 5-10 /hpf (0-5) H 03/31/23 10:57 Ur Squamous Epith Cells 10-15 /hpf (0-5) H 03/31/23 10:57 Amorphous Sediment Not Reportable 03/31/23 10:57 Urine Bacteria Trace /hpf (NONE) 03/31/23 10:57 Urine Mucus Trace /hpf 03/31/23 10:57 No radiology studies performed this visit Discharge Plan Discharge Patient Disposition: Home Clinical Impression: Hyperemesis arising during Condition: Stable Prescriptions: New ondansetron HCl 4 mg tablet 4 mg PO Q8H PRN (Reason: nausea and vomiting) 5 Days Qty: 20 0RF No Action (DME) CPAP 14 setting See Rx Instructions .ROUTE .MEDSUPPLY Qty: 1 0RF Rx Instructions: As directed (DME) CPAP mask, tubing, supplies See Rx Instructions .ROUTE .MEDSUPPLY Qty: 1 1RF Rx Instructions: As directed Multivitamins 28 mg iron- 800 mcg Tablet 1 tab PO DAILY Discharge Orders: Discharge ED (Routine); Ordered 03/31/23 Ordered By: Aniceto Qureshi Discharge Diet: Advance as tolerated Discharge Activity: Resume usual activity Patient Instructions: Opioid Safety, Pain Management Activity Restrictions/Additional Instructions: Activity Restrictions/Additional Instructions: Thank you for choosing [facility] for your healthcare needs today. Please realize that you were seen in the Emergency Department and that we are providing you with an emergency medical screening exam and this may not be a complete and all inclusive of all the testing and or medical work-up that you may need to determine your ailment or severity of your illness. It is very important that you follow-up as instructed with your Primary care provider or Specialist for additional evaluation and to discuss your medical treatment plan. You may return to the Emergency Department should you have concerns or if your condition changes or worsens in any way. Coding Level of Care Code ED General Manager In Training for Eleanor Mcnamara
[2023-03-31 10:08] LABS: Basophils % 0.3 %; Eosinophils # 0.1 10^3/uL (0.0-0.8); Eosinophils % 0.9 %; Hematocrit 37.5 % (36-47); Lymphocytes # 2.2 10^3/uL (0.8-4.8); Lymphocytes % 27.3 %; Mean Corpuscular HGB Conc 32.8 g/dL (30-55); Mean Corpuscular Hemoglobin 27.2 pg (27-33); Mean Platelet Volume 9.9 fL (7.4-10.4); Monocytes # 0.5 10^3/uL (0.2-0.9); Monocytes % 6.2 %; Neutrophils # 5.11 10^3/uL (1.8-7.7); Neutrophils % 64.8 %; Nucleated Red Blood Cells % 0 %; Platelet Count 315 10^3/cmm (157-399); Red Blood Count 4.52 10^6/uL (3.85-5.65); Red Cell Distribution Width 13.4 % (12.1-15.1); White Blood Count 7.88 10^3/uL (3.29-11.43)
[2023-03-31 10:43] LABS: Alanine Aminotransferase 13 U/L (0-33); Albumin Level 3.5 g/dL (3.5-5.2); Alkaline Phosphatase 73 U/L (35-105); Anion Gap 12.9 (5-19); Aspartate Amino Transferase 9 U/L (0-32); Blood Urea Nitrogen 7 mg/dL (6-20); Calcium 9.1 mg/dL (8.5-10.5); Carbon Dioxide 22 mmol/L (22-29); Chloride 102 mmol/L (98-107); Globulin 3.5 g/dL (1.3-4.6); Glomerular Filtration Rate 149.1 mL/min (90-130); Glucose 90 mg/dL (65-115); Osmolality Calculated 274 mOsm/kg (285-295); Potassium 3.9 mmol/L (3.5-5.1); Sodium 133 mmol/L (136-145); Total Bilirubin 0.2 mg/dL (0.15-1.2)
[2023-03-31 11:29] LABS: Add Urine Culture? No; Add Urine Microscopic? YES; Bacteria Urine TRACE /hpf; Bilirubin Urine 1+ (Negative); Blood Urine Neg (Negative); Glucose Urine UA Norm (Normal); Ketones Urine Negative (Negative); Leukocyte Esterase Urine 2+ (Negative); Mucus Urine TRACE /hpf; Nitrate Urine Negative (Negative); Protein Urine Neg (Negative); RBC Urine 0-4 /hpf (0-2); Specific Gravity, Urine 1.015 (1.005-1.030); Urine Appearance SL Hazy (CLEAR); Urine Color Yellow (Yellow); Urobilinogen Urine Norm (Negative); pH Urine 6 (5-7)
== END 2023-03-31 11:57 | disposition home or self-care (01) ==
PROVIDERS: Emergency Provider Internal Medicine
DX: O21.0 Mild hyperemesis gravidarum (principal); O99.331 Smoking (tobacco) complicating pregnancy, first trimester; F17.290 Nicotine dependence, other tobacco product, uncomplicated; Z3A.12 12 weeks gestation of pregnancy
CPT/HCPCS: 80053; 81001; 84702; 85025; 96374; 99284; J2405; J7030

== ENCOUNTER 2023-04-12 12:58 | Emergency (ER) | payer MEDICAID, SELFPAY ==
[2023-04-12 13:09] VITALS: BP 114/77; PULSE 85; RESP 16; TEMP 36.7; O2SAT 98
--- NOTE | 2023-04-12 13:32 | ED_ITS ---
HPI - General Adult 2 General: Chief complaint: General Medical Stated complaint: Low BP, chest pressure Time Seen by Provider: 04/12/23 13:30 History of Present Illness: 28-year-old female presents emergency de partment stating that she was advised to come to the emergency department by her primary care provider. She states she had been seen by her primary care provider earlier today for feeling generally weak and fatigued and was advised to come to the emergency department because her blood pressure was low. Upon arrival to the emergency department blood pressure was found to be 114/77. She is approximately 12 weeks gestation she has been seen here in the past on March 31, 2023 for generalized abdominal pain which was found to be implantation pain. She did receive a ultrasound on 03/15/2023 and confirmed live intrauterine . She does endorse intermittent nausea. She denies fevers chills or night sweats. Associated symptoms: Reports malaise and nausea Review of Systems 2 General: Reports: 10 or more systems reviewed and unremarkable except in HPI and below Const: Reports: fatigue and malaise GI: Reports: nausea PFSH ED 2 PFSH: Medical History Obstructive sleep apnea Major depressive disorder, recurrent, moderate Dysphoric mood Breast pain in female Genital warts Anxiety with depression ADHD Borderline personality disorder Post-traumatic stress disorder, chronic Surgical History History of surgery on lower extremity No pertinent past surgical history Family History Grandmother Hypertension Maternal grandmother Grandfather Cancer Maternal-breast Other CAD (coronary artery disease) Psychiatric illness Denies family history of Colon cancer Ovarian cancer Diabetes Clotting disorder Heart disease Hyperlipidemia Chronic kidney disease (CKD) Breast cancer Anesthesia complication Family history of thyroid problem Bleeding disorder Lung disease Uterine cancer Stroke Social History Smoking and tobacco/nicotine status: current every day tobacco/nicotine user e- cigarettes E-Cigarette Details: vaporizer device and with nicotine E-cig/vape details: 5 % Quit status (tobacco/nicotine): has tried quititng Number of times tried to quit tobacco: 2 Second hand smoke exposure: No Alcohol intake: former Substance/Drug Use: never Lives independently: Yes Physical Exam 2 Narrative: EXAM NARRATIVE: Constitutional: the patient appears well nourished and of normal development. Vital signs as documented. No acute distress at present. Alert and oriented-to person, place, time and situation. Head, eyes, ears, nose, mouth, throat: Normocephalic, atraumatic. Pupils-equal, round, reactive to light. No scleral icterus. Normal-appearing external ears. Normal appearing nasal turbinates, no drainage. No obvious oral lesions, posterior oropharynx without erythema or exudates. Neck: Supple, trachea is midline, no lymphadenopathy, no jugular venous distension, thyromegaly, or carotid bruits. Carotid upstrokes are brisk bilaterally. Lungs: clear to auscultation to all lung fabian. Symmetrical rise and fall of chest, no obvious signs of increased work of breathing at present. Cardiac: Regular rate and rhythm, positive S1, S2. No murmurs, rubs or gallops that I can appreciate Abdomen: Soft, non-tender to palpation, normal active bowel sounds to all quadrants. No palpable masses, no organomegaly and abdominal bruits. Extremities: 2+ pulses in the upper extremities that are equal bilaterally, 2+ pulses in the lower extremities that are equal bilaterally. Non-edematous. Moves all extremities well, sensation to all extremities are noted. Skin: Warm, dry, intact. Course 2 Reevaluation(s): Reevaluation #1: Reevaluation the patient states that she feels much better she did receive a liter of normal saline IV fluid I did discuss with her the importance of taking her antibiotics for her urinary tract infection given her . I did advise her that her heart tones for her child were 154 bpm which is appropriate and an acceptable range. Time: 16:38 Vital Signs: Vital signs: Vital Signs Temperature 98.0 F 04/12/23 13:09 Pulse Rate 85 04/12/23 14:54 Respiratory Rate 16 04/12/23 13:09 Blood Pressure 109/63 04/12/23 14:54 Pulse Oximetry 98 04/12/23 13:09 Oxygen Delivery Me thod Room Air 04/12/23 13:09 MDM - General Adult Medical Decision Making 28-year-old female presents with generalized fatigue and malaise and intermittent nausea she is approximately 12 weeks she has had a previous ultrasound that demonstrated a single live intrauterine . We will obtain a CBC, CMP urinalysis PT INR and provide her IV fluid rehydration and reevaluate. Medical Records I reviewed the patient's medical records. Lab Data I reviewed the patient's lab results. 04/12/23 14:12 04/12/23 14:12 Laboratory Results WBC 11.52 10^3/uL (3.29-11.43) H 04/12/23 14:12 RBC 4.33 10^6/uL (3.85-5.65) 04/12/23 14:12 Hgb 11.90 g/dL (11.27-16.99) 04/12/23 14:12 Hct 36.9 % (36-47) 04/12/23 14:12 MCV 85.2 fl (85-98) 04/12/23 14:12 MCH 27.5 pg (27-33) 04/12/23 14:12 MCHC 32.2 g/dL (30-55) 04/12/23 14:12 RDW 13.6 % (12.1-15.1) 04/12/23 14:12 Plt Count 289 10^3/cmm (157-399) 04/12/23 14:12 MPV 10.1 fL (7.4-10.4) 04/12/23 14:12 Neut % (Auto) 75.4 % 04/12/23 14:12 Lymph % (Auto) 18.5 % 04/12/23 14:12 Forrest % (Auto) 5.0 % 04/12/23 14:12 Eos % (Auto) 0.4 % 04/12/23 14:12 Baso % (Auto) 0.3 % 04/12/23 14:12 Neut # (Auto) 8.67 10^3/uL (1.8-7.7) H 04/12/23 14:12 Lymph # (Auto) 2.1 10^3/uL (0.8-4.8) 04/12/23 14:12 Forrest # (Auto) 0.6 10^3/uL (0.2-0.9) 04/12/23 14:12 Eos # (Auto) 0.1 10^3/uL (0.0-0.8) 04/12/23 14:12 Baso # (Auto) 0.0 10^3/uL (0.0-0.1) 04/12/23 14:12 Nucleated RBC % (auto) 0 % 04/12/23 14:12 Nucleated RBCs # 0.0 /100WBC 04/12/23 14:12 Sodium 135 mmol/L (136-145) L 04/12/23 14:12 Potassium 3.7 mmol/L (3.5-5.1) 04/12/23 14:12 Chloride 103 mmol/L (98-107) 04/12/23 14:12 Carbon Dioxide 22 mmol/L (22-29) 04/12/23 14:12 Anion Gap 13.7 (5-19) 04/12/23 14:12 BUN 6 mg/dL (6-20) 04/12/23 14:12 Creatinine 0.4 mg/dL (0.5-0.9) L 04/12/23 14:12 GFR Calculation 192.9 mL/min (90-130) H 04/12/23 14:12 Glucose 83 mg/dL (65-115) 04/12/23 14:12 Calculated Osmolality 277 mOsm/kg (285-295) L 04/12/23 14:12 Calcium 8.8 mg/dL (8.5-10.5) 04/12/23 14:12 Total Bilirubin 0.2 mg/dL (0.15-1.2) 04/12/23 14:12 AST 12 U/L (0-32) 04/12/23 14:12 ALT 10 U/L (0-33) 04/12/23 14:12 Alkaline Phosphatase 72 U/L (35-105) 04/12/23 14:12 Total Protein 6.9 g/dL (6.6-8.7) 04/12/23 14:12 Albumin 3.3 g/dL (3.5-5.2) L 04/12/23 14:12 Globulin 3.6 g/dL (1.3-4.6) 04/12/23 14:12 Ser , Semi-Qnt 86609.00 mIU/mL 04/12/23 14:12 Urine Color Yellow (Yellow) 04/12/23 15:32 Urine Appearance Hazy (CLEAR) A 04/12/23 15:32 Urine pH 5 (5-7) 04/12/23 15:32 Ur Specific [place] 1.020 (1.005-1.030) 04/12/23 15:32 Urine Protein Neg (Negative) 04/12/23 15:32 Urine Glucose (UA) Norm (Normal) 04/12/23 15:32 Urine Ketones 1+ (Negative) H 04/12/23 15:32 Urine Blood Neg (Negative) 04/12/23 15:32 Urine Nitrate Negative (Negative) 04/12/23 15:32 Urine Bilirubin Neg (Negative) 04/12/23 15:32 Urine Urobilinogen Neg mg/dL (Negative) 04/12/23 15:32 Ur Leukocyte Esterase 2+ (Negative) H 04/12/23 15:32 Urine RBC Rare /hpf (0-2) 04/12/23 15:32 Urine WBC 0-4 /hpf (0-5) H 04/12/23 15:32 Ur Squamous Epith Cells 25-40 /hpf (0-5) H 04/12/23 15:32 Amorphous Sediment 1+ /hpf 04/12/23 15:32 Urine Bacteria 1+ /hpf (NONE) H 04/12/23 15:32 Urine Mucus 3+ /hpf 04/12/23 15:32 No radiology studies performed this visit Discharge Plan Discharge Patient Disposition: Home Clinical Impression: UTI (urinary tract infection), Acute dehydration Condition: Stable Prescriptions: New cephalexin 500 mg capsule 500 mg PO BID 7 Days Qty: 14 0RF No Action (DME) CPAP 14 setting See Rx Instructions .ROUTE .MEDSUPPLY Qty: 1 0RF Rx Instructions: As directed (DME) CPAP mask, tubing, supplies See Rx Instructions .ROUTE .MEDSUPPLY Qty: 1 1RF Rx Instructions: As directed PNV cmb#95-ferrous fumarate-FA [ Multivitamins] 28 mg iron- 800 mcg Tablet 1 tab PO DAILY Discharge Orders: Discharge ED (Routine); Ordered 04/12/23 Ordered By: Aniceto Qureshi Referrals: Ole Birmingham MD [Primary Care Provider] - Discharge Diet: Advance as tolerated Discharge Activity: Resume usual activity Patient Instructions: Opioid Safety, Pain Management Activity Restrictions/Additional Instructions: Activity Restrictions/Additional Instructions: Thank you for choosing [facility] for your healthcare needs today. Please realize that you were seen in the Emergency Department and that we are providing you with an emergency medical screening exam and this may not be a complete and all inclusive of all the testing and or medical work-up that you may need to determine your ailment or severity of your illness. It is very important that you follow-up as instructed with your Primary care provider or Specialist for additional evaluation and to discuss your medical treatment plan. You may return to the Emergency Department should you have concerns or if your condition changes or worsens in any way. Coding Level of Care Code ED Geospatial Extractor Analysis for Eleanor Mcnamara
[2023-04-12] MEDS: sodium chloride 0.9% 1,000 ML 999 ML IV (14:15)
[2023-04-12 14:39] LABS: Basophils % 0.3 %; Eosinophils # 0.1 10^3/uL (0.0-0.8); Eosinophils % 0.4 %; Hematocrit 36.9 % (36-47); Lymphocytes # 2.1 10^3/uL (0.8-4.8); Lymphocytes % 18.5 %; Mean Corpuscular HGB Conc 32.2 g/dL (30-55); Mean Corpuscular Hemoglobin 27.5 pg (27-33); Mean Corpuscular Volume 85.2 fl (85-98); Mean Platelet Volume 10.1 fL (7.4-10.4); Monocytes # 0.6 10^3/uL (0.2-0.9); Neutrophils # 8.67 10^3/uL (1.8-7.7); Neutrophils % 75.4 %; Nucleated Red Blood Cells % 0 %; Platelet Count 289 10^3/cmm (157-399); Red Blood Count 4.33 10^6/uL (3.85-5.65); Red Cell Distribution Width 13.6 % (12.1-15.1); White Blood Count 11.52 10^3/uL (3.29-11.43)
[2023-04-12 14:54] VITALS: BP 108/78; BP 109/63; BP 119/75; PULSE 100; PULSE 85; PULSE 98
[2023-04-12 15:13] LABS: Alanine Aminotransferase 10 U/L (0-33); Albumin Level 3.3 g/dL (3.5-5.2); Alkaline Phosphatase 72 U/L (35-105); Anion Gap 13.7 (5-19); Aspartate Amino Transferase 12 U/L (0-32); Blood Urea Nitrogen 6 mg/dL (6-20); Calcium 8.8 mg/dL (8.5-10.5); Carbon Dioxide 22 mmol/L (22-29); Chloride 103 mmol/L (98-107); Globulin 3.6 g/dL (1.3-4.6); Glomerular Filtration Rate 192.9 mL/min (90-130); Glucose 83 mg/dL (65-115); Osmolality Calculated 277 mOsm/kg (285-295); Potassium 3.7 mmol/L (3.5-5.1); Sodium 135 mmol/L (136-145); Total Bilirubin 0.2 mg/dL (0.15-1.2); Total Protein 6.9 g/dL (6.6-8.7)
[2023-04-12 16:01] LABS: Add Urine Culture? No; Amorphous Sediment Urine 1+ /hpf; Bacteria Urine 1+ /hpf; Bilirubin Urine Neg (Negative); Blood Urine Neg (Negative); Glucose Urine UA Norm (Normal); Ketones Urine 1+ (Negative); Leukocyte Esterase Urine 2+ (Negative); Mucus Urine 3+ /hpf; Nitrate Urine Negative (Negative); Protein Urine Neg (Negative); RBC Urine RARE /hpf (0-2); Squamous Epithelial Cell Urine 25-40 /hpf (0-5); Urine Appearance Hazy (CLEAR); Urine Color Yellow (Yellow); Urobilinogen Urine Neg (Negative); WBC Urine 0-4 /hpf (0-5); pH Urine 5 (5-7)
== END 2023-04-12 16:53 | disposition home or self-care (01) ==
PROVIDERS: Emergency Provider Internal Medicine; PCP Family Medicine
DX: N39.0 Urinary tract infection, site not specified (principal); E86.0 Dehydration
CPT/HCPCS: 36415; 80053; 81001; 84702; 85025; 99284; J7030

== ENCOUNTER 2023-06-15 21:55 | Outpatient (CLI) | payer MEDICAID, SELFPAY ==
[2023-06-15 21:55] VITALS: BMI 57.5
[2023-06-15 22:14] VITALS: TEMP 34.9
[2023-06-15 22:15] VITALS: BP 122/55; PULSE 102; TEMP 30.9
[2023-06-15 22:16] VITALS: PULSE 96; O2SAT 97
[2023-06-15 22:21] VITALS: PULSE 104; O2SAT 98
[2023-06-15 22:36] VITALS: BP 122/55; PULSE 98; RESP 16; TEMP 36.7; O2SAT 98
== END 2023-06-15 22:40 | disposition home or self-care (01) ==
LOC: OPOB 21:59 → OBGYN 22:02
PROVIDERS: PCP Family Medicine; Visit Provider Family Medicine
DX: O16.9 Unspecified maternal hypertension, unspecified trimester (principal); Z3A.00 Weeks of gestation of pregnancy not specified
CPT/HCPCS: 99211

== ENCOUNTER 2023-07-14 20:46 | Outpatient (CLI) | payer SELFPAY ==
[2023-07-14 21:01] VITALS: BP 128/71; PULSE 100
[2023-07-14 21:03] VITALS: TEMP 36.2
[2023-07-14 21:11] VITALS: BMI 59.1
[2023-07-14 21:44] VITALS: BP 128/71; PULSE 100; RESP 17; TEMP 36.2
== END 2023-07-14 21:44 | disposition home or self-care (01) ==
LOC: OPOB 20:48 → OBGYN 20:48
PROVIDERS: PCP Family Medicine; Visit Provider Family Medicine
DX: O26.899 Other specified pregnancy related conditions, unspecified trimester (principal); Z3A.00 Weeks of gestation of pregnancy not specified
CPT/HCPCS: 99211

== ENCOUNTER 2023-08-11 10:46 | Outpatient (CLI) | payer SELFPAY ==
[2023-08-11] VITALS (7 sets, daily range): BP systolic 109–147; BP diastolic 55–80; PULSE 93–110; RESP 16; TEMP 36.3; BMI 58.7
[2023-08-11 11:36] LABS: Add Urine Culture? No; Bacteria Urine 1+ /hpf; Bilirubin Urine Neg (Negative); Blood Urine Neg (Negative); Glucose Urine UA Norm (Normal); Ketones Urine Negative (Negative); Leukocyte Esterase Urine 1+ (Negative); Nitrate Urine Negative (Negative); Protein Urine Neg (Negative); Specific Gravity, Urine 1.015 (1.005-1.030); Urine Appearance Clear (CLEAR); Urine Color Yellow (Yellow); Urobilinogen Urine Norm (Negative); pH Urine 6.5 (5-7)
[2023-08-11 11:51] LABS: Amphetamines Screen Urine Negative (Negative); Barbiturates Screen Urine Negative (Negative); Benzodiazepines Screen Urine Negative (Negative); Cocaine Screen Urine Negative (Negative); Opiate Screen Urine Negative (Negative); PCP Screen Urine Negative (Negative); THC Screen Urine Negative (Negative)
[2023-08-11] MEDS: acetaminophen 500 mg Tablet 1000 MG PO (12:11)
[2023-08-11] MEDS: cefTRIAXone 1,000 MG, lidocaine 1% 2.1 ML in SYRINGE 1 EACH 2.10000000000000009 MG IM (12:36)
== END 2023-08-11 12:50 | disposition home or self-care (01) ==
LOC: OPOB 10:47 → OBGYN 10:48
PROVIDERS: PCP Family Medicine; Visit Provider Family Medicine
DX: O26.899 Other specified pregnancy related conditions, unspecified trimester (principal); R10.31 Right lower quadrant pain
CPT/HCPCS: 59025; 80306; 81001; 87086; 96372; 99211; J0696

== ENCOUNTER 2023-08-22 10:04 | Outpatient (CLI) | payer SELFPAY ==
[2023-08-22 10:23] VITALS: BP 133/93; PULSE 92
[2023-08-22 10:39] VITALS: BP 137/70; PULSE 93
[2023-08-22 10:41] VITALS: BMI 59.1
[2023-08-22 10:51] LABS: Basophils % 0.3 %; Eosinophils # 0.2 10^3/uL (0.0-0.8); Eosinophils % 1.3 %; Lymphocytes # 1.9 10^3/uL (0.8-4.8); Lymphocytes % 16.1 %; Mean Corpuscular HGB Conc 31.7 g/dL (30-55); Mean Corpuscular Hemoglobin 26.1 pg (27-33); Mean Corpuscular Volume 82.2 fl (85-98); Monocytes # 0.7 10^3/uL (0.2-0.9); Neutrophils # 8.87 10^3/uL (1.8-7.7); Neutrophils % 75.4 %; Nucleated Red Blood Cells % 0 %; Platelet Count 323 10^3/cmm (157-399); Red Blood Count 4.26 10^6/uL (3.85-5.65); Red Cell Distribution Width 14.1 % (12.1-15.1); White Blood Count 11.78 10^3/uL (3.29-11.43)
[2023-08-22 10:54] VITALS: BP 142/71; PULSE 93
[2023-08-22 11:05] LABS: Add Urine Microscopic? YES; Bilirubin Urine Neg (Negative); Blood Urine Neg (Negative); Glucose Urine UA Norm (Normal); Ketones Urine Negative (Negative); Leukocyte Esterase Urine 2+ (Negative); Nitrate Urine Negative (Negative); Protein Urine Neg (Negative); Urine Appearance Cloudy (CLEAR); Urine Color Yellow (Yellow); Urobilinogen Urine Norm (Negative); pH Urine 6 (5-7)
[2023-08-22 11:08] LABS: RBC Urine 0-4 /hpf (0-2); WBC Urine 15-25 /hpf (0-5)
[2023-08-22 11:09] VITALS: BP 139/62; PULSE 88
[2023-08-22 11:09] LABS: Add Urine Culture? Yes; Bacteria Urine 2+ /hpf; Mucus Urine 2+ /hpf
[2023-08-22 11:10] LABS: Alanine Aminotransferase 17 U/L (0-33); Albumin Level 3.1 g/dL (3.5-5.2); Alkaline Phosphatase 128 U/L (35-105); Anion Gap 13.3 (5-19); Aspartate Amino Transferase 12 U/L (0-32); Blood Urea Nitrogen 7 mg/dL (6-20); Calcium 8.4 mg/dL (8.5-10.5); Carbon Dioxide 22 mmol/L (22-29); Chloride 105 mmol/L (98-107); Creatinine Clr Calc Pharmacy 230.0557; Globulin 3.4 g/dL (1.3-4.6); Glomerular Filtration Rate 149.1 mL/min (90-130); Glucose 91 mg/dL (65-115); Osmolality Calculated 280 mOsm/kg (285-295); Potassium 4.3 mmol/L (3.5-5.1); Sodium 136 mmol/L (136-145); Total Bilirubin 0.2 mg/dL (0.15-1.2); Total Protein 6.5 g/dL (6.6-8.7); Uric Acid 4.9 mg/dL (2.4-5.7)
[2023-08-22 11:14] LABS: Urine Creatinine 125 mg/dL (28-217)
[2023-08-22 11:24] VITALS: BP 110/53; PULSE 85
[2023-08-22 11:27] LABS: UPRO/UCREAT Ratio 0.18 mg/mg CR; Urine Protein Random 22 mg/dL
[2023-08-22 11:45] VITALS: BP 110/53; PULSE 85; RESP 16; TEMP 36.4
== END 2023-08-22 11:45 | disposition home or self-care (01) ==
LOC: OPOB 10:05 → OBGYN 10:06
PROVIDERS: PCP Family Medicine; Visit Provider Family Medicine
DX: O16.9 Unspecified maternal hypertension, unspecified trimester (principal); Z3A.00 Weeks of gestation of pregnancy not specified
CPT/HCPCS: 36415; 59025; 80053; 81001; 82570; 84156; 84550; 85025; 99211

== ENCOUNTER 2023-09-13 07:21 | Emergency (ER) | payer SELFPAY ==
[2023-09-13 07:24] VITALS: BP 157/78; PULSE 93; RESP 20; TEMP 36.8; O2SAT 97; BMI 58.6
--- NOTE | 2023-09-13 07:25 | ED_ITS ---
HPI - General Adult General: Chief complaint: Ear Stated complaint: Right ear pain Time Seen by Provider: 09/13/23 07:24 Source: patient Mode of arrival: ambulatory History of Present Illness: 28-year-old female presents emergency ro om complaining of right ear pain. This been bothering her for the last week. She is approximately 36 weeks at this time. She is complaining of severe pain in her right ear. She is had subjective fevers per her report but she has not actually checked them. She has not had any drainage from the ear to this point is also complaining of a sore throat. Her pain is primarily in the right ear but she has some discomfort in the left as well. Onset (ago): week(s) (1) Associated symptoms: Deny chest pain, dyspnea or rash Review of Systems Const: Denies: fever(s) or chills ENMT: Reports: throat pain and ear or mastoid pain; Denies: ear discharge Card: Denies: chest pain Resp: Denies: dyspnea GI: Denies: abdominal pain : Denies: dysuria, urinary frequency or urinary urgency Musc: Denies: neck pain or back pain Skin/Breast: Denies: rash PFSH ED PFSH: Medical History Obstructive sleep apnea Major depressive disorder, recurrent, moderate Dysphoric mood Breast pain in female Genital warts Anxiety with depression ADHD Borderline personality disorder Post-traumatic stress disorder, chronic Surgical History History of surgery on lower extremity No pertinent past surgical history Family History Grandmother Hypertension Maternal grandmother Grandfather Cancer Maternal-breast Other CAD (coronary artery disease) Psychiatric illness Denies family history of Colon cancer Ovarian cancer Diabetes Clotting disorder Heart disease Hyperlipidemia Chronic kidney disease (CKD) Breast cancer Anesthesia complication Family history of thyroid problem Bleeding disorder Lung disease Uterine cancer Stroke Social History Smoking and tobacco/nicotine status: current every day tobacco/nicotine user e- cigarettes E-Cigarette Details: vaporizer device and with nicotine E-cig/vape details: 5 % Quit status (tobacco/nicotine): has tried quititng Number of times tried to quit tobacco: 2 Second hand smoke exposure: No Alcohol intake: former Substance/Drug Use: never Lives independently: Yes Physical Exam Const: GENERAL APPEARANCE: cooperative and comfortable ORIENTATION/CONSCIOUSNESS: Yes awake, Yes oriented to person, Yes oriented to place and Yes oriented to time HENMT: COMMON NORMALS: normocephalic, atraumatic and hearing grossly normal bilaterally HEAD & SCALP: normocephalic and atraumatic EXTERNAL AUDITORY CANAL: Abnormal EAC present EAC laterality: right Details: erythema, edema and EAC tenderness THROAT: posterior oropharynx abnormal edema and erythema Eye: COMMON NORMALS: Equal, round and reactive pupils present, EOMs intact bi laterally and conjunctivae normal CONJUNCTIVA: Yes conjunctivae normal PUPIL: Yes Equal, round and reactive pupils present Resp: COMMON NORMALS: normal respiratory effort, No retractions, No use of accessory muscles and clear to auscultation bilaterally AUSCULTATION: clear to auscultation bilaterally Cardio: COMMON NORMALS: regular rate, regular rhythm and No murmurs present (Cardio) RATE: regular rate RHYTHM: regular rhythm GI: COMMON NORMALS: Soft to palpation and No hepatosplenomegaly present AUSCULTATION: Yes normoactive bowel sounds PALPATION: Yes Soft to palpation, No Tenderness to palpation present (GI), No Guarding due to palpation present (GI) and Yes No hepatosplenomegaly present Extremity: COMMON NORMALS: normal to inspection, capillary refill normal, no clubbing, cyanosis or edema, no calf tenderness and no pedal edema Neuro: SENSORIUM/ORIENTATION: Yes oriented to person, Yes oriented to place and Yes oriented to time Skin: COMMON NORMALS: no rashes or lesions noted GENERAL SKIN EXAM: no rashes or lesions noted Course Vital Signs: Vital signs: Vital Signs Temperature 98.3 F 09/13/23 07:35 Pulse Rate 103 H 09/13/23 07:50 Respiratory Rate 20 H 09/13/23 07:35 Blood Pressure 157/78 09/13/23 07:50 Pulse Oximetry 98 09/13/23 07:50 Oxygen Delivery Me thod Room Air 09/13/23 07:35 MDM - General Adult Medical Decision Making Right otitis externa. Posterior pharyngeal wall mildly reddened started on amoxicillin 875 twice daily 10 days Corticosporin drops and follow-up with his primary needed with primary care. Follow-up of blood pressure with her obstruction. Medical Records I reviewed the patient's medical records. Lab Data I reviewed the patient's lab results. No radiology studies performed this visit Discharge Plan Discharge Patient Disposition: Home Clinical Impression: Otitis externa of right ear, Pharyngitis Condition: Stable Prescriptions: New Cipro HC 0.2-1 % drops,suspension 3 drp otic (ear) BID 10 Days Qty: 10 0RF amoxicillin 875 mg tablet 875 mg PO BID Qty: 20 0RF hydrocodone-acetaminophen 5-325 mg tablet 1 tab PO Q6H PRN (Reason: pain) Qty: 10 0RF No Action (DME) CPAP 14 setting See Rx Instructions .ROUTE .MEDSUPPLY Qty: 1 0RF Rx Instructions: As directed (DME) CPAP mask, tubing, supplies See Rx Instructions .ROUTE .MEDSUPPLY Qty: 1 1RF Rx Instructions: As directed PNV cmb#95-ferrous fumarate-FA [ Multivitamins] 28 mg iron- 800 mcg Tablet 1 tab PO DAILY Flagyl capsule 1 cap PO 1XD Discharge Orders: Discharge ED (Routine); Ordered 09/13/23 Ordered By: Tony Arreguin Referrals: Ole Birmingham MD [Primary Care Provider] - Discharge Diet: Usual diet Discharge Activity: Increase activity as tolerated Patient Instructions: Otitis Externa - Adult, Opioid Safety, Pain Management Activity Restrictions/Additional Instructions: Thank you for choosing [facility] for your healthcare needs today. It is very important that you follow up as instructed or that you return to the Emergency Department should you have concerns or if your condition changes or worsens in any way. You were seen today with a complaint of ear pain on exam there is a little bit of redness to your left tympanic membrane the external auditory canal (ear canal) is swollen and inflamed. This is likely the cause of most of your ear discomfort. Your throat was also mildly red. Your left ear looked normal but you had mentioned it was giving you some discomfort. Recommend for the external ear infection that you use the eardrops 3 drops twice a day for 10 days, would also recommend you use it in both ears since the other ear was beginning to hurt. Additionally because of the sore throat recommend he start on amoxicillin 1 twice a day for 10 days. You are also given pain medications to use as needed as external ear infections can be quite painful. Coding Level of Care Code ED Rock Drill Operator for Eleanor Mcnamara
[2023-09-13 07:35] VITALS: BP 157/78; PULSE 93; RESP 20; TEMP 36.8; O2SAT 97
[2023-09-13 07:50] VITALS: BP 157/78; PULSE 103; O2SAT 98
[2023-09-13] MEDS: HYDROcodone-acetaminophen 5-325 mg Tablet 1 TAB PO (07:50)
== END 2023-09-13 07:51 | disposition home or self-care (01) ==
PROVIDERS: Emergency Provider Family Medicine; PCP Family Medicine
DX: H60.91 Unspecified otitis externa, right ear (principal); J02.9 Acute pharyngitis, unspecified; F17.290 Nicotine dependence, other tobacco product, uncomplicated
CPT/HCPCS: 99283

== ENCOUNTER 2023-09-13 08:16 | Outpatient (CLI) | payer SELFPAY ==
[2023-09-13 08:26] VITALS: BP 122/70; PULSE 93
[2023-09-13 08:49] VITALS: BP 122/57; PULSE 83
[2023-09-13 09:11] VITALS: BMI 56.9
== END 2023-09-13 09:27 | disposition home or self-care (01) ==
LOC: OPOB 08:22 → OBGYN 08:23
PROVIDERS: PCP Family Medicine; Visit Provider Family Medicine
DX: O16.9 Unspecified maternal hypertension, unspecified trimester (principal); Z3A.00 Weeks of gestation of pregnancy not specified
CPT/HCPCS: 59025; 99211

== ENCOUNTER → 2023-09-26 03:10 | Outpatient (CLI) | payer SELFPAY ==
[2023-09-26 00:43] VITALS: BP 119/67; PULSE 92
[2023-09-26 00:56] VITALS: BMI 57.8
[2023-09-26 01:56] LABS: Nitrazine Paper, PH Inconclusive
[2023-09-26 02:03] LABS: Actim Prom Negative
[2023-09-26 02:11] VITALS: BP 132/62; PULSE 88; RESP 18
[2023-09-26 02:15] VITALS: BP 132/62; PULSE 88
== END | disposition home or self-care (01) ==
LOC: OPOB 00:28 → OBGYN 02:10
PROVIDERS: PCP Family Medicine; Visit Provider Family Medicine
DX: O26.899 Other specified pregnancy related conditions, unspecified trimester (principal); Z3A.00 Weeks of gestation of pregnancy not specified; N89.8 Other specified noninflammatory disorders of vagina
CPT/HCPCS: 59025; 83986; 84112; 99211

== ENCOUNTER 2023-09-28 20:01 | Outpatient (CLI) | payer SELFPAY ==
[2023-09-28] VITALS (13 sets, daily range): BP systolic 115–154; BP diastolic 65–94; PULSE 83–113; RESP 16; TEMP 36.8; BMI 56.9
[2023-09-28 20:28] LABS: Urine Appearance Cloudy (CLEAR); Urine Color Orange (Yellow)
[2023-09-28 20:29] LABS: Amorphous Sediment Urine 1+ /hpf; Bacteria Urine 2+ /hpf; Bilirubin Urine 1+ (Negative); Blood Urine Neg (Negative); Glucose Urine UA Norm (Normal); Ketones Urine 2+ (Negative); Leukocyte Esterase Urine 2+ (Negative); Mucus Urine 2+ /hpf; Nitrate Urine Negative (Negative); Protein Urine 1+ (Negative); Squamous Epithelial Cell Urine 25-40 /hpf (0-5); Urobilinogen Urine 4 mg/dL (Negative); pH Urine 5 (5-7)
[2023-09-28] MEDS: lactated ringers 1,000 ML 999 ML IV (21:37)
== END 2023-09-28 23:30 | disposition home or self-care (01) ==
LOC: OPOB 20:01 → OBGYN 20:01
PROVIDERS: PCP Family Medicine; Visit Provider Family Medicine
DX: O26.899 Other specified pregnancy related conditions, unspecified trimester (principal); Z3A.00 Weeks of gestation of pregnancy not specified; Z91.81 History of falling
CPT/HCPCS: 59025; 81001; 99211; J7120

== ENCOUNTER 2023-10-11 15:40 | Outpatient (CLI) | payer SELFPAY ==
[2023-10-11 15:40] VITALS: BMI 58.1
[2023-10-11 16:00] VITALS: BP 136/88; PULSE 100
[2023-10-11 16:11] VITALS: BP 125/79; PULSE 102
[2023-10-11 16:26] VITALS: BP 110/62; PULSE 99
[2023-10-11 16:44] VITALS: BP 110/62; PULSE 99; RESP 15
== END 2023-10-11 16:45 | disposition home or self-care (01) ==
LOC: OPOB 15:48 → OBGYN 15:50
PROVIDERS: PCP Family Medicine; Visit Provider Family Medicine
DX: O26.899 Other specified pregnancy related conditions, unspecified trimester (principal); Z3A.00 Weeks of gestation of pregnancy not specified; R10.9 Unspecified abdominal pain
CPT/HCPCS: 59025; 99211

== ENCOUNTER 2023-10-12 04:40 | Inpatient (IN) | payer SELFPAY ==
[2023-10-12] VITALS (87 sets, daily range): BP systolic 90–158; BP diastolic 44–86; PULSE 76–125; RESP 16–17; TEMP 36.7–37.2; O2SAT 92–100; BMI 57.4
[2023-10-12 05:08] LABS: Basophils % 0.2 %; Eosinophils # 0.1 10^3/uL (0.0-0.8); Eosinophils % 0.6 %; Hematocrit 34.8 % (36-47); Lymphocytes # 2.5 10^3/uL (0.8-4.8); Lymphocytes % 15.6 %; Mean Corpuscular HGB Conc 31.9 g/dL (30-55); Mean Corpuscular Hemoglobin 25.1 pg (27-33); Mean Corpuscular Volume 78.6 fl (85-98); Mean Platelet Volume 9.7 fL (7.4-10.4); Neutrophils # 12.32 10^3/uL (1.8-7.7); Neutrophils % 76.5 %; Nucleated Red Blood Cells % 0 %; Platelet Count 367 10^3/cmm (157-399); Red Blood Count 4.43 10^6/uL (3.85-5.65); White Blood Count 16.11 10^3/uL (3.29-11.43)
[2023-10-12] MEDS: lactated ringers 1,000 ML 999 ML IV (05:15)
--- NOTE | 2023-10-12 06:06 | P.ANESASSM_ITS ---
Pre-Anesthetic Assessment Height/Weight: Height 1.55 m Weight 137.892 kg Pulse BP 99 132/64 10/12/23 06:02 10/12/23 06:02 Preop Diagnosis: labor pain epidural Was Beta Marily taken within 24 hours: N/A Was Clonidine taken within 24 hours: N/A Airway Submandibular: within normal limits Cervical ROM: within normal limits Mallampati: Class II Dentition: full Pulmonary Sleep Apnea CV/HEM Hypertension None reported Hepatic None reported GI Gastroesophageal Reflux Disease Metabolic Morbid Obesity [facility] [place] None reported Neuropsych Anxiety and Depression Anesthetic Plan ASA status: 3 Anesthesia: Regional (specify below) Risk of > 500 ml blood loss (7ml/kg in children): No Medications/Allergies Home Medications Medication Instructions Recorded Confirmed Last Taken Type 1 tab PO DAILY 09/28/23 10/12/23 09/28/23 History Allergies Allergy/AdvReac Type Severity Reaction Status Date / Time eggplant Allergy Intermediate ALGY-Swell Verified 10/12/23 05:28 Lip/Tongue/Throat Current Medications Generic Name Dose Route Start Last Admin Trade Name Freq PRN Reason Stop Dose Admin Lactated Ringer's 1,000 mls @ 999 mls/hr 10/12/23 04:33 10/12/23 05:15 Lactated Ringers IV 999 mls/hr .Q1H1M PRN Administration See label comments PFSH Anesthesia Medical History Obstructive sleep apnea Major depressive disorder, recurrent, moderate Dysphoric mood Breast pain in female Genital warts Anxiety with depression ADHD Borderline personality disorder Post-traumatic stress disorder, chronic Surgical History History of surgery on lower extremity No pertinent past surgical history Family History Grandmother Hypertension Maternal grandmother Grandfather Cancer Maternal-breast Other CAD (coronary artery disease) Psychiatric illness Denies family history of Colon cancer Ovarian cancer Diabetes Clotting disorder Heart disease Hyperlipidemia Chronic kidney disease (CKD) Breast cancer Anesthesia complication Family history of thyroid problem Bleeding disorder Lung disease Uterine cancer Stroke Social History Smoking and tobacco/nicotine status: current every day tobacco/nicotine user e- cigarettes E-Cigarette Details: vaporizer device and with nicotine E-cig/vape details: 5 % Quit status (tobacco/nicotine): has tried quititng Number of times tried to quit tobacco: 2 Second hand smoke exposure: No Alcohol intake: former Substance/Drug Use: never Lives independently: Yes Data Anesthesia 10/12/23 04:50 Short CBC 10/12/23 Range/Units 04:50 WBC 16.11 H (3.29-11.43) 10^3/uL Hgb 11.10 L (11.27-16.99) g/dL Hct 34.8 L (36-47) % MCV 78.6 L (85-98) fl Plt Count 367 (157-399) 10^3/cmm Neut % (Auto) 76.5 % Neut # (Auto) 12.32 H (1.8-7.7) 10^3/uL Blood Bank 10/12/23 04:50 Blood Type O Positive Rho(D) Type Rh positive Antibody Screen Negative Cardiac Studies: 2 No Data to Display
--- NOTE | 2023-10-12 06:37 | ANES.PROC ---
Anesthesia Procedures Procedure/Date: 10/12/23 epidural Epidural: Time Out Performed: Yes Consents Signed: Procedure Consent Consent: requested by attending/covering physician, from patient, risks and benefits reviewed and patient agrees to proceed Lumbar Level: L3-L4 Epidural position: sitting Epidural procedure: sterile prep of area, 1% lidocaine to numb the area (3 mL), 18 g needle, negative for paresthesia passed, neg for paresthesia, test dose given, 1.5% xylocaine 1:200k epi (5 mL), 0.2% Ropivacaine bolus ml (5 mL), placed PCEA, no systemic response, sterile dressing applied, L.U.D. no apparent complications and 0.2% Ropiavacaine @ mls/hr (12 mL/hr)
--- NOTE | 2023-10-12 07:30 | PM.OPHPUD ---
Labor & Delivery H&P Update Date of Procedure: October 12, 2023 Date H&P Performed: 10/10/23 Changes to previous documentation: Her cervix is now 6 cm dilated and 80% effaced. Admission Diagnosis: 28-year-old 2 para 1-0-0-1 at 40 weeks and 4 days presenting in active labor Preop diagnosis: labor pain Other information: The patient presented to the hospital after having contractions intermittently over the last couple of days. They became more consistent and more painful this morning. Her has otherwise been relatively unremarkable. Her blood type is O+. Her antibody screen is negative. She was found to be THC positive. Her 1 hour glucose screen was 168 she passed her 3-hour glucose screen. She is rubella immune. The remainder of her infectious disease profile is within normal limits. Related Problem List Diagnoses (1) 40 weeks gestation of : A&P Assessment and plan (1) 40 weeks gestation of : I anticipate routine labor and vaginal delivery. An amniotomy was performed this morning. Status: Acute
[2023-10-12 08:20] LABS: Amphetamines Screen Urine Negative (Negative); Barbiturates Screen Urine Negative (Negative); Benzodiazepines Screen Urine Negative (Negative); Cocaine Screen Urine Negative (Negative); Opiate Screen Urine Negative (Negative); PCP Screen Urine Negative (Negative); THC Screen Urine Positive (Negative)
[2023-10-12] MEDS: oxytocin 30 UNIT/500 ML BAG 600 UNIT IV (10:08)
--- NOTE | 2023-10-12 10:22 | PM.DELIVERY ---
Delivery Note: Date of delivery: October 12, 2023 Pre-delivery diagnoses: 28-year-old 2 para 1-0-0-1 at 40 weeks estimated gestational age Post-delivery diagnoses: Status post spontaneous vaginal delivery with retained placenta Procedure: Spontaneous vaginal delivery with manually extracted placenta intact Delivering Physician: Ole Birmingham Estimated blood loss (mL): 150 Pre-Delivery Course: The patient presented to the hospital in active labor. An epidural was placed. An amniotomy was performed. She then progressed to complete without difficulty. Delivery: DELIVERY: The patient progressed to complete without difficulty. She delivered a male with a weight of 7 pounds and 14 ounces with Apgars of 8, 9. The baby was delivered from the OMAR position and placed on the mother's abdomen. The cord was then clamped and cut. There was no nuchal cord. Meconium was noted. The placenta and 3 vessel cord were delivered intact shortly thereafter. The perineum and vaginal vault were carefully examined. No lacerations were noted. Both the mother and the baby were in stable condition. Post-Delivery Status: Good History History History 2 Term 1 0 Miscarriages/Ectopic 0 Living Children 1 A&P Assessment and plan (1) 40 weeks gestation of : I anticipate routine care. Because the placenta was manually extracted I will have the nurse pay close attention to any hemorrhage. (2) Spontaneous vaginal delivery: (3) Retained placenta or membranes without haemorrhage: Coding Level of Care Code Acute Code for Chg Fwd Diagnoses 40 weeks gestation of Z3A.40 Spontaneous vaginal delivery O80 Retained placenta or membranes without haemorrhage
[2023-10-12] MEDS: dextrose 5%-lactated ringers 1,000 ML 125 ML IV (10:34)
[2023-10-12] MEDS: benzocaine-menthol 78 gm Canister 1 SPRAY TOPICAL (13:34)
[2023-10-12] MEDS: HYDROcodone-acetaminophen 5-325 mg Tablet PO ×2 (13:34→20:50)
[2023-10-12] MEDS: lanolin oint 7 gm 1 APPLIC TOPICAL (13:34)
[2023-10-12] MEDS: ibuprofen 800 mg tablet PO ×2 (16:30→20:50)
[2023-10-12 22:32] LABS: Hematocrit 31.4 % (36-47); Mean Corpuscular HGB Conc 31.8 g/dL (30-55); Mean Corpuscular Hemoglobin 25.4 pg (27-33); Mean Corpuscular Volume 79.7 fl (85-98); Mean Platelet Volume 9.8 fL (7.4-10.4); Platelet Count 313 10^3/cmm (157-399); Red Blood Count 3.94 10^6/uL (3.85-5.65); White Blood Count 13.39 10^3/uL (3.29-11.43)
[2023-10-13 00:30] VITALS: BP 114/74; PULSE 76; RESP 17; TEMP 36.8; O2SAT 97
[2023-10-13 05:20] VITALS: BP 106/68; PULSE 69; RESP 16; TEMP 36.8; O2SAT 97
[2023-10-13] MEDS: ibuprofen 800 mg tablet PO (09:02)
[2023-10-13] MEDS: docusate sodium 100 mg Capsule PO (09:02)
[2023-10-13] MEDS: PRENATAL VIT NO.130/IRON/FOLIC 1 EACH TABLET PO (09:02)
--- NOTE | 2023-10-13 09:34 | P.DS_ITS ---
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 An epidural was placed. An amniotomy was performed. She progressed to complete without difficulty. Her was remarkable for a retained placenta which was manually extracted intact. Her bleeding was within normal limits. She is been breast- feeding well. DFS was contacted to due to her history of marijuana use and the fact that she does not currently have custody of her other child. We also discussed her history of psych check disorders and specifically depression. I discussed options with her including treating her preemptively for depression. At this point she refuses. She states the marijuana works best for her. We discussed potential concerns with marijuana. She understands. Information Peripartum Data: Delivery Method: Vaginal Physical Exam Narrative: The patient is alert. She appears comfortable. Her heart has a regular rate and rhythm with no murmurs appreciated. Lungs are clear to auscultation bilaterally. Her fundus is firm and below the umbilicus. Urinary Catheter Management: Sau[place]o: Cath Placed During This Visit: yes Urinary Catheter Date of Insertion: 10/12/23 Urinary Catheter Time of Insertion: 07:55 History History History 2 Term 1 0 Miscarriages/Ectopic 0 Living Children 1 Discharge Data Studies Completed and Pending Laboratory Results WBC 13.39 10^3/uL (3.29-11.43) H 10/12/23 22:15 RBC 3.94 10^6/uL (3.85-5.65) 10/12/23 22:15 Hgb 10.00 g/dL (11.27-16.99) L 10/12/23 22:15 Hct 31.4 % (36-47) L 10/12/23 22:15 MCV 79.7 fl (85-98) L 10/12/23 22:15 MCH 25.4 pg (27-33) L 10/12/23 22:15 MCHC 31.8 g/dL (30-55) 10/12/23 22:15 RDW 15.0 % (12.1-15.1) 10/12/23 22:15 Plt Count 313 10^3/cmm (157-399) 10/12/23 22:15 MPV 9.8 fL (7.4-10.4) 10/12/23 22:15 Neut % (Auto) 76.5 % 10/12/23 04:50 Lymph % (Auto) 15.6 % 10/12/23 04:50 [place] % (Auto) 6.0 % 10/12/23 04:50 Eos % (Auto) 0.6 % 10/12/23 04:50 Baso % (Auto) 0.2 % 10/12/23 04:50 Neut # (Auto) 12.32 10^3/uL (1.8-7.7) H 10/12/23 04:50 Lymph # (Auto) 2.5 10^3/uL (0.8-4.8) 10/12/23 04:50 [place] # (Auto) 1.0 10^3/uL (0.2-0.9) H 10/12/23 04:50 Eos # (Auto) 0.1 10^3/uL (0.0-0.8) 10/12/23 04:50 Baso # (Auto) 0.0 10^3/uL (0.0-0.1) 10/12/23 04:50 Nucleated RBC % (auto) 0 % 10/12/23 04:50 Nucleated RBCs # 0.0 /100WBC 10/12/23 04:50 Urine Opiates Screen Negative ng/mL (Negative) 10/12/23 05:10 Ur Barbiturates Screen Negative ng/mL (Negative) 10/12/23 05:10 Ur Phencyclidine Scrn Negative ng/mL (Negative) 10/12/23 05:10 Ur Amphetamines Screen Negative ng/mL (Negative) 10/12/23 05:10 U Benzodiazepines Scrn Negative ng/mL (Negative) 10/12/23 05:10 Urine Cocaine Screen Negative ng/mL (Negative) 10/12/23 05:10 U Marijuana (THC) Screen Positive ng/mL (Negative) H 10/12/23 05:10 Blood Type O Positive 10/12/23 04:50 Rho(D) Type Rh positive 10/12/23 04:50 Antibody Screen Negative 10/12/23 04:50 Vitals Last Vital Signs Temp 98.3 F 10/13/23 05:20 Pulse 69 10/13/23 05:20 Resp 16 10/13/23 05:20 BP 106/68 10/13/23 05:20 Pulse Ox 97 10/13/23 05:20 O2 Del Method Room Air 10/13/23 05:20 Results Labs OB ([facility]): Obstetrics US 06/26/23 Blood Type O Positive 10/12/23 Antibody Screen Negative 10/12/23 Hct 31.4 % (36-47) L 10/12/23 Hgb 10.00 g/dL (11.27-16.99) L 10/12/23 Rho(D) Type Rh positive 10/12/23 Plt Count 313 10^3/cmm (157-399) 10/12/23 RPR Nonreactive (Nonreactive) 10/05/19 HIV 1&2 Ab & HIV 1 Ag Non-reactive (Non-Reactiv) 10/05/19 TSH 2.85 uIU/mL (0.27-4.20) 12/21/22 Free T4 1.08 ng/dL (0.82-1.77) 12/21/22 Hemoglobin A1c 5.3 % (4.0-6.0) 12/21/22 Uric Acid 4.9 mg/dL (2.4-5.7) 08/22/23 Ser , Semi-Qnt 28004.00 mIU/mL 04/12/23 HCG, Qual Negative (Negative) 11/04/22 Urine Opiates Screen Negative ng/mL (Negative) 10/12/23 Ur Barbiturates Screen Negative ng/mL (Negative) 10/12/23 Ur Phencyclidine Scrn Negative ng/mL (Negative) 10/12/23 Ur Amphetamines Screen Negative ng/mL (Negative) 10/12/23 U Benzodiazepines Scrn Negative ng/mL (Negative) 10/12/23 Urine Cocaine Screen Negative ng/mL (Negative) 10/12/23 U Marijuana (THC) Screen Positive ng/mL (Negative) H Micro Urine Specimen 08/11/23 Discharge Plan Discharge Patient Disposition: Home Condition: Stable Prescriptions: New ibuprofen 800 mg Tablet 800 mg PO TID Qty: 45 0RF Continued 1 tab PO DAILY Discharge Orders: Discharge Order (Routine); Ordered 10/13/23 Ordered By: Ole Birmingham Referrals: Ole Birmingham MD [Primary Care Provider] - 6 Weeks Discharge Diet: Usual diet Discharge Activity: Limit activity as instructed Patient Instructions: Depression (DC), Bleeding (DC), Preeclampsia and Eclampsia After Delivery (GEN), Hemorrhage (DC), OB Discharge Report, OB Anesthesia Instructions, OB Food/Drug Interaction Guide, Opioid Safety, OB Home Care, OB Proud Parent Packet, OB Vaginal Deliveries 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
[2023-10-13 11:00] VITALS: BP 126/87; PULSE 78; RESP 17; TEMP 36.7; O2SAT 98
[2023-10-13 13:00] VITALS: BP 119/69; PULSE 78; RESP 17; TEMP 36.8; O2SAT 97
[2023-10-13 13:07] VITALS: BP 119/69; PULSE 78; RESP 17; TEMP 36.8; O2SAT 97
--- NOTE | 2023-10-14 08:00 | ANE.PACU2 ---
Inpatient post-anesthesia follow up: Airway intact: Yes Vital signs: Temperature 98.2 F Pulse Rate 78 Respiratory Rate 17 Blood Pressure 119/69 Pulse Oximetry 97 Oxygen Delivery Me thod Room Air Oxygen Flow Rate Fraction of Inspir ed Oxygen Hydration adequate: Yes Nausea and vomiting: No Pain level: 1 Mental status: Baseline Epidural Start/End: Epidural Start Date: 10/12/23 Epidural Start Time: 06:14 Epidural End Date: 10/12/23 Epidural End Time: 10:16
== END 2023-10-13 13:07 | disposition home or self-care (01) | DRG 806 ==
LOC: OPOB 04:40 → OBGYN 04:40
PROVIDERS: Admitting Provider Family Medicine; PCP Family Medicine; Visit Provider Family Medicine
DX: O48.0 Post-term pregnancy (principal); O99.324 Drug use complicating childbirth; Z37.0 Single live birth; Z3A.40 40 weeks gestation of pregnancy; O73.0 Retained placenta without hemorrhage; F12.10 Cannabis abuse, uncomplicated; O77.0 Labor and delivery complicated by meconium in amniotic fluid
CPT/HCPCS: 36415; 51702; 59025; 59409; 80306; 85025; 85027; 86850; 86900; 99211; J2590; J7120; J7121

== ENCOUNTER 2024-02-20 20:57 | Emergency (ER) | payer SELFPAY ==
[2024-02-20 21:10] VITALS: BP 117/77; PULSE 121; RESP 17; TEMP 36.9; O2SAT 97; BMI 56.7
--- NOTE | 2024-02-20 22:02 | ED_ITS ---
HPI - Skin/Abscess/Foreign Bdy 2 General: Chief complaint: Skin/Abscess/Foreign Body Stated complaint: rash under breast and on stomach possible chemical Time Seen by Provider: 02/20/24 22:01 Source: patient Mode of arrival: ambulatory Limitations: no limitations History of Present Illness: Patient is a 29-year-old female presents to ED today with a complaint of a rash under her left breast. Patient states yesterday she was wearing a bra and felt a jellylike substance stuck in her bra that was leftover from an un- disintegrated Tide pod. She feels like this caused a contact or irritant dermatitis. She feels like the area of redness has worsened and it is now draining and has a foul smell. She is extremely concerned about infection/staph. complaint: rash Onset (ago): day(s) (yesterday) Tetanus up to date: yes Location: chest (L breast) Severity: mild Quality: burning Pain Consistency: constant Relieving factors: none Exacerbating factors: none Context: other (contact derm possibly from tide pod?) Associated symptoms: Reports no associated symptoms; Deny fever(s) Treatments prior to arrival: none Related Data Home Medications Medication Instructions Recorded Confirmed 1 tab PO DAILY 09/28/23 10/12/23 Previous Rx's Medication Instructions Recorded ibuprofen 800 mg tablet 800 mg PO TID #45 tabs 10/13/23 cephalexin 500 mg capsule 500 mg PO Q6H 7 days #28 caps 02/20/24 Allergies Allergy/AdvReac Type Severity Reaction Status Date / Time eggplant Allergy Intermediate ALGY-Swell Verified 02/20/24 21:15 Lip/Tongue/Throat Review of Systems 2 Const: Denies: fever(s) Skin/Breast: Reports: rash PFSH ED 2 PFSH: Medical History Obstructive sleep apnea Major depressive disorder, recurrent, moderate Dysphoric mood Breast pain in female Genital warts Anxiety with depression ADHD Borderline personality disorder Post-traumatic stress disorder, chronic Surgical History History of surgery on lower extremity No pertinent past surgical history Family History Grandmother Hypertension Maternal grandmother Grandfather Cancer Maternal-breast Other CAD (coronary artery disease) Psychiatric illness Denies family history of Colon cancer Ovarian cancer Diabetes Clotting disorder Heart disease Hyperlipidemia Chronic kidney disease (CKD) Breast cancer Anesthesia complication Family history of thyroid problem Bleeding disorder Lung disease Uterine cancer Stroke Social History Smoking and tobacco/nicotine status: current every day tobacco/nicotine user e- cigarettes E-Cigarette Details: vaporizer device and with nicotine E-cig/vape details: 5 % Quit status (tobacco/nicotine): has tried quititng Number of times tried to quit tobacco: 2 Second hand smoke exposure: No Alcohol intake: former Substance/Drug Use: never Lives independently: Yes Physical Exam 2 Const: COMMON NORMALS: no acute distress, patient oriented x3, no limitations, alert and well nourished GENERAL APPEARANCE: cooperative NUTRITIONAL APPEARANCE: obese morbidly obese (BMI 56.7) Chest: Chest images (female): 1. small area of contact/irritant appearing dermatitis under L breast; does not appear candidal at this time; small amount of serous drainage; no odor noted Neuro: COMMON NORMALS: patient oriented x3 SENSORIUM/ORIENTATION: Yes alert Skin: RASHES: rashes noted (see above) Course 2 Vital Signs: Vital signs: Vital Signs Temperature 98.5 F 02/20/24 21:10 Pulse Rate 121 H 02/20/24 21:10 Respiratory Rate 17 02/20/24 21:10 Blood Pressure 117/77 02/20/24 21:10 Pulse Oximetry 97 02/20/24 21:10 Oxygen Delivery Me thod Room Air 02/20/24 21:10 MDM - Skin/Abscess/Foreign Bdy Medicial Decision Making Discussed topical therapies including cleansing with mild/hypoallergenic soap, patting dry, keeping dry with barrier cloths, drying powders, barrier creams. Avoiding further irritation. Patient is very worried this is getting bacterially infected. I have a low suspicion for this. Due to holiday weekend-agreeable to provide rx for oral abx but only wanting her to fill if redness worsens/spreads. No radiology studies performed this visit Discharge Plan Discharge Patient Disposition: Home Clinical Impression: Irritant contact dermatitis Condition: Stable Prescriptions: New cephalexin 500 mg capsule 500 mg PO Q6H 7 Days Qty: 28 0RF No Action 1 tab PO DAILY ibuprofen 800 mg Tablet 800 mg PO TID Qty: 45 0RF Discharge Orders: Discharge ED (Routine); Ordered 02/20/24 Ordered By: Cielo Díaz Referrals: Ole Birmingham MD [Primary Care Provider] - Patient Instructions: Dermatitis (Contact), Contact Dermatitis (DC) Activity Restrictions/Additional Instructions: As we discussed, please keep area clean and pat dry. You need to apply a barrier such as a cloth and use drying powders. You may fill antibiotics only if you feel redness continues to worsen or spread. Stand Alone Forms: Work/School Release Coding Level of Care Code ED Assistant Womens Volleyball Coach for Eleanor Mcnamara
== END 2024-02-20 22:32 | disposition home or self-care (01) ==
PROVIDERS: Emergency Provider Physician Assistant; PCP Family Medicine
DX: L24.0 Irritant contact dermatitis due to detergents (principal); F17.290 Nicotine dependence, other tobacco product, uncomplicated
CPT/HCPCS: 99283

== ENCOUNTER 2024-02-25 17:36 | Emergency (ER) | payer SELFPAY ==
[2024-02-25] VITALS (8 sets, daily range): BP systolic 95–122; BP diastolic 52–87; PULSE 74–94; RESP 18; TEMP 37.2; O2SAT 95–100
--- NOTE | 2024-02-25 17:54 | ECG_ITS ---
[facility] Test Date: 2024-02-25 Pat Name: Bryant Tony Department: Room: Gender: Female Lead Performance Support Analyst: : 1995 Requested By: Harley Clinton Order Number: [id number] Eller MD: Audi Melton M.D. Measurements Intervals [place] Rate: 90 P: 23 CO: 156 QRS: -2 QRSD: 87 T: 12 QT: 346 QTc: 424 Interpretive Statements SINUS RHYTHM WITH SINUS ARRHYTHMIA LOW QRS VOLTAGE IN PRECORDIAL LEADS [QRS DEFLECTION < 1.0 mV IN CHEST LEADS] POSSIBLE ANTERIOR MYOCARDIAL INFARCTION , PROBABLY OLD [30 ms Q WAVE IN V3/V4, OR R < 0.2 mV IN V4] Compared to ECG 09/27/2022 02:22:09 Myocardial infarct finding now present Sinus tachycardia no longer present Electronically Signed On 02-25-2024 21:24:52 LICENSED CLINICAL PSYCHOLOGIST by Audi Melton M.D. [email or web address]
--- NOTE | 2024-02-25 19:19 | CTR_ITS ---
PROCEDURE INFORMATION: Exam: CT Head Without Contrast Exam date and time: 02/25/2024 9:08 PM Age: 29 years old Clinical indication: Injury or trauma; Fall; Blunt trauma (contusions or hematomas); Additional info: Fall, head injury TECHNIQUE: Imaging protocol: Computed tomography of the head without contrast. Radiation optimization: All CT scans at this facility use at least one of these dose optimization techniques: automated exposure control; mA and/or kV adjustment per patient size (includes targeted exams where dose is matched to clinical indication); or iterative reconstruction. COMPARISON: CT head wo con* [id number] 08/30/2022 5:59 PM RADIATION DOSE METRICS: Total DLP (mGy-cm): 1059.58 FINDINGS: Brain: Normal. No hemorrhage. Unremarkable white matter. No mass effect. Cerebral ventricles: No ventriculomegaly. Paranasal sinuses: Visualized sinuses are unremarkable. No fluid levels. Mastoid air cells: Visualized mastoid air cells are well aerated. Bones: Unremarkable. No acute fracture. Soft tissues: Unremarkable. CT/CT head wo con* [id number] IMPRESSION: No acute intracranial abnormality.
--- NOTE | 2024-02-25 19:19 | CTR_ITS ---
PROCEDURE INFORMATION: Exam: CT Cervical Spine Without Contrast Exam date and time: 02/25/2024 9:10 PM Age: 29 years old Clinical indication: Injury or trauma; Fall; Blunt trauma; Additional info: Fall, neck pain TECHNIQUE: Imaging protocol: Computed tomography of the cervical spine without contrast. Radiation optimization: All CT scans at this facility use at least one of these dose optimization techniques: automated exposure control; mA and/or kV adjustment per patient size (includes targeted exams where dose is matched to clinical indication); or iterative reconstruction. COMPARISON: CT head wo con* [id number] 02/25/2024 9:08 PM RADIATION DOSE METRICS: Total DLP (mGy-cm): 645.08 FINDINGS: Bones: No acute fracture. Normal alignment. No significant disc bulge or herniation. No severe spinal canal stenosis. No significant neural foraminal narrowing. Lungs: Lung apices are normal. Soft tissues: Unremarkable. CT/CT cervical spin wo con* [id number] IMPRESSION: No acute fracture or traumatic malalignment cervical spine.
--- NOTE | 2024-02-25 19:21 | ED_ITS ---
HPI - Chest Pain 2 General: Chief Complaint: Chest Pain Stated Complaint: Left side pain numb loss vision Time Seen by Provider: 02/25/24 19:14 History of Present Illness: 29-year-old female with a history of mor bid obesity, obstructive sleep apnea, depression and anxiety who presents to the emergency room with a variety of complaints. She is having some head pain. She says she hit her head. Is also having neck pain. She says she hit her neck. This may have been a fall. She says the neck pain now radiates down the whole left side of her body. She also has some numbness on the left side. She also had some left-sided chest pain. She also complains of bubbles going up her legs, and also in her neck at times. Related Data Home Medications Medication Instructions Recorded Confirmed 1 tab PO DAILY 09/28/23 10/12/23 Previous Rx's Medication Instructions Recorded ibuprofen 800 mg tablet 800 mg PO TID #45 tabs 10/13/23 cephalexin 500 mg capsule 500 mg PO Q6H 7 days #28 caps 02/20/24 Allergies Allergy/AdvReac Type Severity Reaction Status Date / Time eggplant Allergy Intermediate Russ Verified 02/25/24 17:54 Lip/Tongue/Throat Review of Systems 2 Narrative: Constitutional symptoms: Negative except as documented in HPI. Skin symptoms: Negative except as documented in HPI. Eye symptoms: Negative except as documented in HPI. ENMT symptoms: Negative except as documented in HPI. Respiratory symptoms: Negative except as documented in HPI. Cardiovascular symptoms: Negative except as documented in HPI. Gastrointestinal symptoms: Negative except as documented in HPI. Genitourinary symptoms: Negative except as documented in HPI. Musculoskeletal symptoms: Negative except as documented in HPI. Neurologic symptoms: Negative except as documented in HPI. Psychiatric symptoms: Negative except as documented in HPI. Endocrine symptoms: Negative except as documented in HPI. PFSH ED 2 PFSH: Medical History Obstructive sleep apnea Major depressive disorder, recurrent, moderate Dysphoric mood Breast pain in female Genital warts Anxiety with depression ADHD Borderline personality disorder Post-traumatic stress disorder, chronic Surgical History History of surgery on lower extremity No pertinent past surgical history Family History Grandmother Hypertension Maternal grandmother Grandfather Cancer Maternal-breast Other CAD (coronary artery disease) Psychiatric illness Denies family history of Colon cancer Ovarian cancer Diabetes Clotting disorder Heart disease Hyperlipidemia Chronic kidney disease (CKD) Breast cancer Anesthesia complication Family history of thyroid problem Bleeding disorder Lung disease Uterine cancer Stroke Social History Smoking and tobacco/nicotine status: current every day tobacco/nicotine user e- cigarettes E-Cigarette Details: vaporizer device and with nicotine E-cig/vape details: 5 % Quit status (tobacco/nicotine): has tried quititng Number of times tried to quit tobacco: 2 Second hand smoke exposure: No Alcohol intake: former Substance/Drug Use: never Lives independently: Yes Physical Exam 2 Narrative: EXAM NARRATIVE: General: Alert, no acute distress. Skin: Warm, dry. Head: Normocephalic, atraumatic. Neck: Supple, trachea midline. Eye: Extraocular movements are intact. Ears, nose, mouth and throat: mucosa moist. Cardiovascular: Regular, Normal peripheral perfusion. Respiratory: Lungs are clear to auscultation, respirations are non-labored, breath sounds are equal, Symmetrical chest wall expansion. Gastrointestinal: Soft, Nontender, Non distended Musculoskeletal: Normal ROM, no deformity. Neurological: Alert and oriented, No focal neurological deficit observed. Psychiatric: Cooperative, appropriate mood & affect. Course 2 Vital Signs: Vital signs: Vital Signs Temperature 98.9 F 02/25/24 17:47 Pulse Rate 76 02/25/24 22:00 Respiratory Rate 18 02/25/24 17:47 Blood Pressure 95/61 02/25/24 22:00 Pulse Oximetry 95 02/25/24 22:00 Oxygen Delivery Me thod Room Air 02/25/24 22:00 MDM - Chest Pain Medical Decision Making CT head: No acute intracranial process. no intracranial hemorrhage, no evidence of infarct. no evidence of acute fracture.This was reviewed and interpreted by myself the ER physician. CT of the cervical spine: No fracture. Good alignment. No step-offs. This was reviewed and interpreted by myself the emergency room physician. I also reviewed the radiologist report. EKG: Time 1744. Rate 80. Normal sinus rhythm, No ST-T changes, no ectopy, normal PA & QRS intervals, This was reviewed and interpreted by myself the ER physician at 1750. Lab Review: Laboratory results were reviewed and interpreted by myself the emergency room physician. Lab work is unremarkable. No leukocytosis. No anemia. No acute renal failure. Drug screen is negative except for marijuana. I reviewed the patient's medical record. Reexamination: Patient remained stable. No increased work of breathing. No altered mental status. No focal motor deficits. I discussed with the patient that I have no idea what is causing her to have the bubbles feeling in her legs. Discussed that with the number of issues she has she should definitely go see a primary care provider as soon as possible. Assessment and plan: Neck pain Head pain Head injury - Discharged home - Discussed plan with patient. Answered any questions. - Evaluation and treatment of this problem were appropriate in the emergency setting. Lab Data 02/25/24 19:40 02/25/24 19:40 Laboratory Results WBC 10.27 10^3/uL (3.29-11.43) 02/25/24 19:40 RBC 5.06 10^6/uL (3.85-5.65) 02/25/24 19:40 Hgb 11.80 g/dL (11.27-16.99) 02/25/24 19:40 Hct 39.0 % (36-47) 02/25/24 19:40 MCV 77.1 fl (85-98) L 02/25/24 19:40 MCH 23.3 pg (27-33) L 02/25/24 19:40 MCHC 30.3 g/dL (30-55) 02/25/24 19:40 RDW 15.2 % (12.1-15.1) H 02/25/24 19:40 Plt Count 446 10^3/cmm (157-399) H 02/25/24 19:40 MPV 9.5 fL (7.4-10.4) 02/25/24 19:40 Neut % (Auto) 68.0 % 02/25/24 19:40 Lymph % (Auto) 25.1 % 02/25/24 19:40 [place] % (Auto) 5.0 % 02/25/24 19:40 Eos % (Auto) 0.9 % 02/25/24 19:40 Baso % (Auto) 0.5 % 02/25/24 19:40 Neut # (Auto) 6.99 10^3/uL (1.8-7.7) 02/25/24 19:40 Lymph # (Auto) 2.6 10^3/uL (0.8-4.8) 02/25/24 19:40 [place] # (Auto) 0.5 10^3/uL (0.2-0.9) 02/25/24 19:40 Eos # (Auto) 0.1 10^3/uL (0.0-0.8) 02/25/24 19:40 Baso # (Auto) 0.1 10^3/uL (0.0-0.1) 02/25/24 19:40 Nucleated RBC % (auto) 0 % 02/25/24 19:40 Nucleated RBCs # 0.0 /100WBC 02/25/24 19:40 Sodium 140 mmol/L (136-145) 02/25/24 19:40 Potassium 3.8 mmol/L (3.5-5.1) 02/25/24 19:40 Chloride 102 mmol/L (98-107) 02/25/24 19:40 Carbon Dioxide 26 mmol/L (22-29) 02/25/24 19:40 Anion Gap 15.8 (5-19) 02/25/24 19:40 BUN 17 mg/dL (6-20) 02/25/24 19:40 Creatinine 1.1 mg/dL (0.5-0.9) H 02/25/24 19:40 GFR Calculation 59.6 mL/min (90-130) L 02/25/24 19:40 Glucose 109 mg/dL (65-115) 02/25/24 19:40 Calculated Osmolality 292 mOsm/kg (285-295) 02/25/24 19:40 Calcium 8.8 mg/dL (8.5-10.5) 02/25/24 19:40 Total Bilirubin 0.3 mg/dL (0.15-1.2) 02/25/24 19:40 AST 16 U/L (0-32) 02/25/24 19:40 ALT 21 U/L (0-33) 02/25/24 19:40 Alkaline Phosphatase 109 U/L (35-105) H 02/25/24 19:40 Total Protein 8.0 g/dL (6.6-8.7) 02/25/24 19:40 Albumin 4.1 g/dL (3.5-5.2) 02/25/24 19:40 Globulin 3.9 g/dL (1.3-4.6) 02/25/24 19:40 HCG, Qual Negative (Negative) 02/25/24 19:40 Urine Opiates Screen Negative ng/mL (Negative) 02/25/24 20:12 Ur Barbiturates Screen Negative ng/mL (Negative) 02/25/24 20:12 Ur Phencyclidine Scrn Negative ng/mL (Negative) 02/25/24 20:12 Ur Amphetamines Screen Negative ng/mL (Negative) 02/25/24 20:12 U Benzodiazepines Scrn Negative ng/mL (Negative) 02/25/24 20:12 Urine Cocaine Screen Negative ng/mL (Negative) 02/25/24 20:12 U Marijuana (THC) Screen Positive ng/mL (Negative) H 02/25/24 20:12 All radiology interpretation(s) finalized by discharge Discharge Plan Discharge Patient Disposition: Home Clinical Impression: Neck pain, Non-cardiac chest pain, Feared complaint without diagnosis Condition: Stable Prescriptions: No Action 1 tab PO DAILY ibuprofen 800 mg Tablet 800 mg PO TID Qty: 45 0RF cephalexin 500 mg capsule 500 mg PO Q6H 7 Days Qty: 28 0RF Discharge Orders: Discharge ED (Routine); Ordered 02/25/24 Ordered By: Teri Lizarraga Referrals: Ole Birmingham MD [Primary Care Provider] - Discharge Diet: Usual diet Discharge Activity: Increase activity as tolerated Patient Instructions: Noncardiac Chest Pain (ED), Opioid Safety, Pain Management Activity Restrictions/Additional Instructions: Thank you for choosing [facility] for your healthcare needs today. Please realize this is an emergency room and that we are providing you with a medical screening exam and this may not be complete and all inclusive of all the testing and or work up that you may need to determine your ailment or severity of your illness. You have been screened and evaluated and felt safe for discharge. Health conditions do change or evolve sometimes and as such it is important that you follow up with your Primary Doctor to be re checked, 3-5 days is a general good time frame for follow up. You are always welcome to return to the ED for re assessment if your symptoms are worsening or you have new concerns Coding Level of Care Code ED Digital Data Analyst for Eleanor Mcnamara
[2024-02-25 20:10] LABS: Basophils # 0.1 10^3/uL (0.0-0.1); Basophils % 0.5 %; Eosinophils # 0.1 10^3/uL (0.0-0.8); Eosinophils % 0.9 %; Lymphocytes # 2.6 10^3/uL (0.8-4.8); Lymphocytes % 25.1 %; Mean Corpuscular HGB Conc 30.3 g/dL (30-55); Mean Corpuscular Hemoglobin 23.3 pg (27-33); Mean Corpuscular Volume 77.1 fl (85-98); Mean Platelet Volume 9.5 fL (7.4-10.4); Monocytes # 0.5 10^3/uL (0.2-0.9); Neutrophils # 6.99 10^3/uL (1.8-7.7); Nucleated Red Blood Cells % 0 %; Platelet Count 446 10^3/cmm (157-399); Red Blood Count 5.06 10^6/uL (3.85-5.65); Red Cell Distribution Width 15.2 % (12.1-15.1); White Blood Count 10.27 10^3/uL (3.29-11.43)
[2024-02-25 20:31] LABS: Amphetamines Screen Urine Negative (Negative); Barbiturates Screen Urine Negative (Negative); Benzodiazepines Screen Urine Negative (Negative); Cocaine Screen Urine Negative (Negative); Opiate Screen Urine Negative (Negative); PCP Screen Urine Negative (Negative); THC Screen Urine Positive (Negative)
[2024-02-25 20:34] LABS: Alanine Aminotransferase 21 U/L (0-33); Albumin Level 4.1 g/dL (3.5-5.2); Alkaline Phosphatase 109 U/L (35-105); Anion Gap 15.8 (5-19); Aspartate Amino Transferase 16 U/L (0-32); Blood Urea Nitrogen 17 mg/dL (6-20); Calcium 8.8 mg/dL (8.5-10.5); Carbon Dioxide 26 mmol/L (22-29); Chloride 102 mmol/L (98-107); Creatinine Clr Calc Pharmacy 100.7933; Globulin 3.9 g/dL (1.3-4.6); Glomerular Filtration Rate 59.6 mL/min (90-130); Glucose 109 mg/dL (65-115); Osmolality Calculated 292 mOsm/kg (285-295); Potassium 3.8 mmol/L (3.5-5.1); Sodium 140 mmol/L (136-145); Total Bilirubin 0.3 mg/dL (0.15-1.2)
[2024-02-25 20:44] LABS: HCG, Serum Qual Negative (Negative)
== END 2024-02-25 22:50 | disposition home or self-care (01) ==
PROVIDERS: Emergency Medicine; Emergency Provider Emergency Medicine; PCP Family Medicine
DX: M54.2 Cervicalgia (principal); R07.89 Other chest pain; Z03.89 Encounter for observation for other suspected diseases and conditions ruled out
CPT/HCPCS: 36415; 70450; 72125; 80053; 80306; 84703; 85025; 93005; 99284

== ENCOUNTER → 2024-03-10 13:32 | Outpatient (BNVA) | payer SELFPAY | PROVIDERS: PCP Family Medicine; Visit Provider Emergency Medicine | DX: J02.9 Acute pharyngitis, unspecified (principal) | CPT/HCPCS: 87880 ==

== ENCOUNTER 2024-03-28 22:10 | Emergency (ER) | payer SELFPAY ==
[2024-03-28 22:16] VITALS: BP 131/86; PULSE 99; RESP 22; TEMP 36.9; O2SAT 96; BMI 56.7
--- NOTE | 2024-03-28 23:03 | XRR_ITS ---
PROCEDURE INFORMATION: Exam: XR Chest Exam date and time: 03/28/2024 11:07 PM Age: 29 years old Clinical indication: Shortness of breath; Patient HX: Cough; N/v TECHNIQUE: Imaging protocol: Radiologic exam of the chest. Views: 1 view. COMPARISON: CR XR chest 2V* [id number] 11/12/2022 2:07 PM FINDINGS: Lungs: No CHF/pulmonary edema. Suspect mild proximal peribronchial thickening bilaterally. While nonspecific, some type of bronchitis might be considered. Reactive airway disease/asthma is also possible. Please correlate clinically. Visible lungs otherwise appear essentially clear. Pleural spaces: No visible pneumothorax. No definite pleural fluid. Heart/Mediastinum: Heart size is within normal limits. Bones/joints: No significant acute finding. XR/XR chest 1V portable [id number] IMPRESSION: 1. Suspect mild proximal peribronchial thickening bilaterally, see above discussion. 2. Other findings discussed above.
[2024-03-28 23:06] LABS: Covid PCR NEGATIVE (Negative); Influenza A NEGATIVE (Negative); Influenza B NEGATIVE (Negative); Respiratory Syncytial Virus Ce NEGATIVE (Negative)
--- NOTE | 2024-03-28 23:51 | ED_ITS ---
HPI - URI/Sore Throat General: Chief Complaint: Upper Respiratory Infection Stated Complaint: cough n/v Time Seen by Provider: 03/28/24 22:55 History of Present Illness: 29 year old female who tells me she's be en sick on and off for a month. she had respiratory symptoms one month ago that seemed to improve to some degree. She's been sick again for the last four to five days. Her grandmother has COVID-19. She has had cough, congestion, some chest pressure with cough, and shortness of breath. no fever. she's had some diarrhea. no vomiting. no rash. Related Data Previous Rx's Medication Instructions Recorded ibuprofen 800 mg tablet 800 mg PO TID #45 tabs 10/13/23 azithromycin 250 mg tablet See Rx Instructions PO .COMPLEX #6 03/28/24 tabs methylprednisolone 4 mg tablets in See Rx Instructions PO .COMPLEX 03/28/24 a dose pack (Medrol (Shayne)) #21 ea Allergies Allergy/AdvReac Type Severity Reaction Status Date / Time eggplant Allergy Intermediate ALGY-Swell Verified 03/28/24 22:21 Lip/Tongue/Throat [facility] ED PFSH: Medical History Obstructive sleep apnea Major depressive disorder, recurrent, moderate Dysphoric mood Breast pain in female Genital warts Anxiety with depression ADHD Borderline personality disorder Post-traumatic stress disorder, chronic Surgical History History of surgery on lower extremity No pertinent past surgical history Family History Grandmother Hypertension Maternal grandmother Grandfather Cancer Maternal-breast Other CAD (coronary artery disease) Psychiatric illness Denies family history of Colon cancer Ovarian cancer Diabetes Clotting disorder Heart disease Hyperlipidemia Chronic kidney disease (CKD) Breast cancer Anesthesia complication Family history of thyroid problem Bleeding disorder Lung disease Uterine cancer Stroke Social History Smoking and tobacco/nicotine status: unknown if used tobacco/nicotine Quit status (tobacco/nicotine): has tried quititng Number of times tried to quit tobacco: 2 Second hand smoke exposure: No Alcohol intake: former Substance/Drug Use: never Lives independently: Yes Physical Exam Const: COMMON NORMALS: no acute distress GENERAL APPEARANCE: cooperative; not ill appearing and not frail appearing HENMT: COMMON NORMALS: normocephalic, atraumatic and Normal external nose present HEAD & SCALP: normocephalic and atraumatic FACE & SINUS: normal facial exam and face symmetric NOSE: Normal external nose present Eye: COMMON NORMALS: Equal, round and reactive pupils present and EOMs intact bilaterally PUPIL: Yes Equal, round and reactive pupils present Neck/C-Spine: GENERAL: Yes trachea midline Chest: CHEST: Yes Symmetrical chest wall rise Resp: COMMON NORMALS: normal respiratory effort, No retractions, No use of accessory muscles and clear to auscultation bilaterally AUSCULTATION: clear to auscultation bilaterally Cardio: COMMON NORMALS: regular rate and regular rhythm RATE: regular rate RHYTHM: regular rhythm GI: COMMON NORMALS: Normal to inspection, nondistended, normoactive bowel sounds present Extremity: COMMON NORMALS: no pedal edema Neuro: DONNA COMA SCALE: document GCS findings [place] coma scale eye opening: Spontaneous [place] coma scale verbal response: Orientated Donna coma scale motor response: Obey commands [place] coma scale total score: 15 SENSORY EXAM: Yes extremities (intact) Psych: COMMON NORMALS: speech normal SPEECH: Yes normal speech Skin: COMMON NORMALS: no rashes or lesions noted GENERAL SKIN EXAM: no rashes or lesions noted Course Vital Signs: Vital signs: Vital Signs Temperature 98.5 F 03/28/24 22:16 Pulse Rate 68 03/29/24 00:19 Respiratory Rate 22 H 03/28/24 22:16 Blood Pressure 128/74 03/29/24 00:19 Pulse Oximetry 99 03/29/24 00:19 Oxygen Delivery Me thod Room Air 03/28/24 22:16 MDM - URI/Sore Throat Medical Decision Making Chest X-ray is negative For infiltrate. She does have some mild peribronchial thickening. Her vitals are stable period swabs for influenza, COVID-19, and RSV or negative. As she seems to have some ongoing respiratory problems, she'll be treated with steroid taper, antibiotics, and we'll continue the inhaler she is using at home. She knows to return for any worsening symptoms. Lab Data Radiology Impressions Chest X-Ray 03/28/24 23:03 IMPRESSION: 1. Suspect mild proximal peribronchial thickening bilaterally, see above discussion. 2. Other findings discussed above. Laboratory Results Coronavirus (PCR) Negative (Negative) 03/28/24 22:23 Influenza A (PCR) Negative (Negative) 03/28/24 22:23 Influenza Type B (PCR) Negative (Negative) 03/28/24 22:23 RSV (PCR) Negative (Negative) 03/28/24 22:23 XR interpretation done by ED provider, pending radiology final review Discharge Plan Discharge Patient Disposition: Home Clinical Impression: Bronchitis Condition: Stable Prescriptions: New methylprednisolone [Medrol (Shayne)] 4 mg tablets,dose pack See Rx Instructions .ROUTE .COMPLEX Qty: 21 0RF Rx Instructions: orally per package directions azithromycin 250 mg tablet See Rx Instructions .ROUTE .COMPLEX Qty: 6 0RF Rx Instructions: For 250 mg dose pack: take 500 mg today (day 1), then 250 mg for 4 days (days 2-5) No Action ibuprofen 800 mg Tablet 800 mg PO TID Qty: 45 0RF Discharge Orders: Discharge ED (Routine); Ordered 03/28/24 Ordered By: Isaac Simpson Referrals: Ole Birmingham MD [Primary Care Provider] - 4-7 days Patient Instructions: Acute Bronchitis (ED), Opioid Safety, Pain Management Activity Restrictions/Additional Instructions: Your swabs were negative for flu RSV and COVID. Your x-ray did not show pneumonia. You will be treated for bronchitis. Medications as directed. Continue to use the albuterol inhaler every 4 hours scheduled for the next 48 hours, then as needed following that. See your doctor next week. Return for worsening symptoms despite treatment. Stand Alone Forms: Work/School Release Coding Level of Care Code ED Airdrop Systems Technician for Eleanor Mcnamara
[2024-03-29] MEDS: azithromycin 250 mg Tablet 500 MG PO (00:17)
[2024-03-29] MEDS: dexamethasone 4 mg Tablet 10 MG PO (00:17)
[2024-03-29 00:19] VITALS: BP 128/74; PULSE 68; O2SAT 99
== END 2024-03-29 00:20 | disposition home or self-care (01) ==
PROVIDERS: Emergency Provider Emergency Medicine; PCP Family Medicine
DX: J40 Bronchitis, not specified as acute or chronic (principal); Z11.52 Encounter for screening for COVID-19
CPT/HCPCS: 71045; 87637; 99284; J8540; Q0144

== ENCOUNTER 2024-04-21 02:08 | Emergency (ER) | payer SELFPAY ==
[2024-04-21] VITALS (7 sets, daily range): BP systolic 99–107; BP diastolic 59–82; PULSE 79–101; RESP 20; TEMP 36.8; O2SAT 94–98; BMI 60.4
--- NOTE | 2024-04-21 03:33 | W.ED.GENADLT ---
HPI - General Adult General: Chief complaint: General Medical Stated complaint: Rt Leg Pain Time Seen by Provider: 04/21/24 02:29 History of Present Illness: Patient presents to the ER with complaints of intermittent left leg pain that is only there at some times. Other times it is in her left arm. Other times it is in her left neck. She states she think she has a blood clot. She also thinks these areas feel bubbly. She shows me a video on her phone of what looks like a vein or localized muscle spasming on her left lower leg. Related Data Previous Rx's Medication Instructions Recorded ibuprofen 800 mg tablet 800 mg PO TID #45 tabs 10/13/23 azithromycin 250 mg tablet See Rx Instructions PO .COMPLEX #6 03/28/24 tabs methylprednisolone 4 mg tablets in See Rx Instructions PO .COMPLEX 03/28/24 a dose pack (Medrol (Shayne)) #21 ea Allergies Allergy/AdvReac Type Severity Reaction Status Date / Time eggplant Allergy Intermediate ALGY-Swell Verified 04/21/24 02:29 Lip/Tongue/Throat Review of Systems General: Reports: 10 or more systems reviewed and unremarkable except in HPI and below PFSH ED PFSH: Medical History Obstructive sleep apnea Major depressive disorder, recurrent, moderate Dysphoric mood Breast pain in female Genital warts Anxiety with depression ADHD Borderline personality disorder Post-traumatic stress disorder, chronic Surgical History History of surgery on lower extremity No pertinent past surgical history Family History Grandmother Hypertension Maternal grandmother Grandfather Cancer Maternal-breast Other CAD (coronary artery disease) Psychiatric illness Denies family history of Colon cancer Ovarian cancer Diabetes Clotting disorder Heart disease Hyperlipidemia Chronic kidney disease (CKD) Breast cancer Anesthesia complication Family history of thyroid problem Bleeding disorder Lung disease Uterine cancer Stroke Social History Smoking and tobacco/nicotine status: unknown if used tobacco/nicotine Quit status (tobacco/nicotine): has tried quititng Number of times tried to quit tobacco: 2 Second hand smoke exposure: No Alcohol intake: former Substance/Drug Use: never Lives independently: Yes Female Reproductive History: Date of last menstrual period: 04/11/24 Physical Exam Const: COMMON NORMALS: no acute distress, average body habitus, patient oriented x3, no limitations, healthy appearing, alert and well nourished HENMT: COMMON NORMALS: normocephalic, atraumatic, hearing grossly normal bilaterally, external ears normal, Normal external nose present and moist oral mucous membranes HEAD & SCALP: normocephalic and atraumatic NOSE: Normal external nose present EXTERNAL EAR: Yes external ears normal Neck/C-Spine: COMMON NORMALS: no JVD Chest: COMMONS NORMALS: normal inspection of the chest and normal palpation of entire chest wall Resp: COMMON NORMALS: normal respiratory effort, No retractions, No use of accessory muscles and clear to auscultation bilaterally AUSCULTATION: clear to auscultation bilaterally Cardio: COMMON NORMALS: no JVD, regular rate, regular rhythm, S1 normal heart sound present, S2 normal heart sound present, No gallops present (Cardio), No clicks present (Cardio), No murmurs present (Cardio) and No rub (Cardio) RATE: regular rate RHYTHM: regular rhythm HEART SOUNDS: S1 normal heart sound present and S2 normal heart sound present GI: COMMON NORMALS: Normal to inspection, nondistended, normoactive bowel sounds present, Soft to palpation, non-tender, No hepatosplenomegaly present and no masses PALPATION: Yes Soft to palpation and Yes No hepatosplenomegaly present Neuro: COMMON NORMALS: patient oriented x3 SENSORIUM/ORIENTATION: Yes alert Course Vital Signs: Vital signs: Vital Signs Temperature 98.2 F 04/21/24 02:24 Pulse Rate 83 04/21/24 04:00 Respiratory Rate 20 H 04/21/24 02:24 Blood Pressure 107/82 04/21/24 02:29 Pulse Oximetry 94 04/21/24 04:00 Oxygen Delivery Me thod Room Air 04/21/24 04:00 [facility] - General Adult Medical Decision Making Patient physical exam as well as lab work all which was essentially benign. It is thought patient may have intermittent muscle fasciculations on is causing her discomfort. Patient will be referred back to her PCP for further evaluation and treatment. Medical Records I reviewed the patient's medical records. Lab Data I reviewed the patient's lab results. 04/21/24 04:27 04/21/24 04:27 Laboratory Results WBC 11.54 10^3/uL (3.29-11.43) H 04/21/24 04:27 RBC 4.62 10^6/uL (3.85-5.65) 04/21/24 04:27 Hgb 11.10 g/dL (11.27-16.99) L 04/21/24 04:27 Hct 36.7 % (36-47) 04/21/24 04:27 MCV 79.4 fl (85-98) L 04/21/24 04:27 MCH 24.0 pg (27-33) L 04/21/24 04:27 MCHC 30.2 g/dL (30-55) 04/21/24 04:27 RDW 17.2 % (12.1-15.1) H 04/21/24 04:27 Plt Count 402 10^3/cmm (157-399) H 04/21/24 04:27 MPV 9.7 fL (7.4-10.4) 04/21/24 04:27 Neut % (Auto) 64.4 % 04/21/24 04:27 Lymph % (Auto) 27.7 % 04/21/24 04:27 [place] % (Auto) 5.5 % 04/21/24 04:27 Eos % (Auto) 1.6 % 04/21/24 04:27 Baso % (Auto) 0.4 % 04/21/24 04:27 Neut # (Auto) 7.41 10^3/uL (1.8-7.7) 04/21/24 04:27 Lymph # (Auto) 3.2 10^3/uL (0.8-4.8) 04/21/24 04:27 [place] # (Auto) 0.6 10^3/uL (0.2-0.9) 04/21/24 04:27 Eos # (Auto) 0.2 10^3/uL (0.0-0.8) 04/21/24 04:27 Baso # (Auto) 0.1 10^3/uL (0.0-0.1) 04/21/24 04:27 Nucleated RBC % (auto) 0 % 04/21/24 04:27 Nucleated RBCs # 0.0 /100WBC 04/21/24 04:27 Sodium 137 mmol/L (136-145) 04/21/24 04:27 Potassium 4.2 mmol/L (3.5-5.1) 04/21/24 04:27 Chloride 101 mmol/L (98-107) 04/21/24 04:27 Carbon Dioxide 25 mmol/L (22-29) 04/21/24 04:27 Anion Gap 15.2 (5-19) 04/21/24 04:27 BUN 11 mg/dL (6-20) 04/21/24 04:27 Creatinine 0.5 mg/dL (0.5-0.9) 04/21/24 04:27 GFR Calculation 148.0 mL/min (90-130) H 04/21/24 04:27 Glucose 113 mg/dL (65-115) 04/21/24 04:27 Calculated Osmolality 284 mOsm/kg (285-295) L 04/21/24 04:27 Calcium 8.7 mg/dL (8.5-10.5) 04/21/24 04:27 Total Bilirubin 0.2 mg/dL (0.15-1.2) 04/21/24 04:27 ALT 15 U/L (0-33) 04/21/24 04:27 Alkaline Phosphatase 103 U/L (35-105) 04/21/24 04:27 C-Reactive Protein 28.3 mg/L (0.0-4.9) H 04/21/24 04:27 Total Protein 6.9 g/dL (6.6-8.7) 04/21/24 04:27 Albumin 3.5 g/dL (3.5-5.2) 04/21/24 04:27 Globulin 3.4 g/dL (1.3-4.6) 04/21/24 04:27 All radiology interpretation(s) finalized by discharge Discharge Plan Discharge Patient Disposition: Home Clinical Impression: Musculoskeletal pain, Fasciculations of muscle Condition: Stable Prescriptions: No Action ibuprofen 800 mg Tablet 800 mg PO TID Qty: 45 0RF methylprednisolone [Medrol (Shayne)] 4 mg tablets,dose pack See Rx Instructions .ROUTE .COMPLEX Qty: 21 0RF Rx Instructions: orally per package directions azithromycin 250 mg tablet See Rx Instructions .ROUTE .COMPLEX Qty: 6 0RF Rx Instructions: For 250 mg dose pack: take 500 mg today (day 1), then 250 mg for 4 days (days 2-5) Discharge Orders: Discharge ED (Routine); Ordered 04/21/24 Ordered By: Corby Caceres Referrals: Ole Birmingham MD [Primary Care Provider] - 1 week Patient Instructions: Musculoskeletal Pain (ED) Activity Restrictions/Additional Instructions: Thank you for choosing [facility] for your healthcare needs today. Please realize that you were seen in the emergency department and that we are providing you with an emergency medical screening exam and this may not be a complete and all exclusive of all testing and/or medical workup we may need to determine your element or severity of your illness. It is very important that you follow-up as instructed with your primary care provider or specialist for the additional evaluation and to discuss your medical treatment plan. You may return to the emergency department should you have concerns or if your condition changes or worsens in any way. Coding Level of Care Code ED E Commerce Retailer for Eleanor Mcnamara
[2024-04-21 04:36] LABS: Basophils # 0.1 10^3/uL (0.0-0.1); Basophils % 0.4 %; Eosinophils # 0.2 10^3/uL (0.0-0.8); Eosinophils % 1.6 %; Hematocrit 36.7 % (36-47); Lymphocytes # 3.2 10^3/uL (0.8-4.8); Lymphocytes % 27.7 %; Mean Corpuscular HGB Conc 30.2 g/dL (30-55); Mean Corpuscular Volume 79.4 fl (85-98); Mean Platelet Volume 9.7 fL (7.4-10.4); Monocytes # 0.6 10^3/uL (0.2-0.9); Monocytes % 5.5 %; Neutrophils # 7.41 10^3/uL (1.8-7.7); Neutrophils % 64.4 %; Nucleated Red Blood Cells % 0 %; Platelet Count 402 10^3/cmm (157-399); Red Blood Count 4.62 10^6/uL (3.85-5.65); Red Cell Distribution Width 17.2 % (12.1-15.1); White Blood Count 11.54 10^3/uL (3.29-11.43)
[2024-04-21 04:53] LABS: Alanine Aminotransferase 15 U/L (0-33); Albumin Level 3.5 g/dL (3.5-5.2); Alkaline Phosphatase 103 U/L (35-105); Anion Gap 15.2 (5-19); Blood Urea Nitrogen 11 mg/dL (6-20); C Reactive Protein 28.3 mg/L (0.0-4.9); Calcium 8.7 mg/dL (8.5-10.5); Carbon Dioxide 25 mmol/L (22-29); Chloride 101 mmol/L (98-107); Creatinine Clr Calc Pharmacy 231.4271; Globulin 3.4 g/dL (1.3-4.6); Glucose 113 mg/dL (65-115); Osmolality Calculated 284 mOsm/kg (285-295); Potassium 4.2 mmol/L (3.5-5.1); Sodium 137 mmol/L (136-145); Total Bilirubin 0.2 mg/dL (0.15-1.2); Total Protein 6.9 g/dL (6.6-8.7)
[2024-04-21 05:14] LABS: Aspartate Amino Transferase 5 U/L (0-32)
--- NOTE | 2024-04-21 06:17 | PC.NURSE ---
This nurse went in to explain discharge paperwork to pt. Pt states this is bullshit, Im not signing those papers, nothing was done. Again attempt to educate on dx and discharge paperwork, pt again states the same thing. This nurse updates the Dr of pt concerns. Provider went into room with charge nurse to explain dx with patient. pt was upset about IV supplies being left out on bedside table, pt took picture. Pt very unhappy in waiting room.
== END 2024-04-21 05:20 | disposition home or self-care (01) ==
PROVIDERS: Emergency Provider Emergency Medicine; PCP Family Medicine
DX: M79.18 Myalgia, other site (principal); R25.3 Fasciculation
CPT/HCPCS: 36415; 80053; 85025; 86140; 99283

== ENCOUNTER 2024-05-23 08:38 | Emergency (ER) | payer SELFPAY ==
[2024-05-23 08:42] VITALS: BP 125/73; PULSE 105; RESP 20; TEMP 37.2; O2SAT 96
--- NOTE | 2024-05-23 08:47 | XRR_ITS ---
PROCEDURE INFORMATION: Exam: XR Chest Exam date and time: 05/23/2024 9:00 AM Age: 29 years old Clinical indication: Cough and dyspnea; Additional info: Dyspnea/cough TECHNIQUE: Imaging protocol: Radiologic exam of the chest. Views: 1 view. COMPARISON: CR XR chest 1V portable [id number] 03/28/2024 11:07 PM FINDINGS: Lungs: Unremarkable. No consolidation. Pleural spaces: Unremarkable. No pleural effusion. No pneumothorax. Heart/Mediastinum: Unremarkable. No cardiomegaly. Bones/joints: Unremarkable. XR/XR chest 1V portable [id number] IMPRESSION: No acute findings.
--- NOTE | 2024-05-23 08:48 | ECG_ITS ---
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 Measurements Intervals [place] Rate: 104 P: 29 GA: 156 QRS: 16 QRSD: 80 T: 22 QT: 315 QTc: 416 Interpretive Statements SINUS TACHYCARDIA LOW QRS VOLTAGE IN PRECORDIAL LEADS [QRS DEFLECTION < 1.0 mV IN CHEST LEADS] POSSIBLE ANTERIOR MYOCARDIAL INFARCTION , PROBABLY OLD [30 ms Q WAVE IN V3/V4, OR R < 0.2 mV IN V4] ABNORMAL RHYTHM ECG Compared to ECG 02/25/2024 17:44:25 Heart rate is fast Electronically Signed On 05-24-2024 12:37:56 CONTINUOUS YARN DYEING MACHINE OPERATOR by Charley Burroughs M.D. [email or web address]
--- NOTE | 2024-05-23 08:49 | W.ED.URI ---
HPI - URI/Sore Throat General: Chief Complaint: Upper Respiratory Infection Stated Complaint: fever, bodyaches Time Seen by Provider: 05/23/24 08:47 History of Present Illness: 29-year-old female presents emergency room with complaints of fever myalgias headache that began overnight. She is also had a mildly productive cough overnight. She reporting a low-grade fever overnight as well as myalgias. Patient has a history of migraine variants in the past. She denies any PEs no history of any chronic respiratory illness. No vomiting or diarrhea. Associated symptoms: Reports chills and fever(s); Deny abdominal pain or chest pain Related Data Home Medications ?Medication ?Instructions ?Recorded ?Confirmed No Known Home Medications 05/23/24 05/23/24 Allergies Allergy/AdvReac Type Severity Reaction Status Date / Time eggplant Allergy Intermediate ALGY-Swell Verified 04/21/24 02:29 Lip/Tongue/Throat Review of Systems Const: Reports: fever(s), chills, body aches, fatigue and malaise Card: Denies: chest pain Resp: Reports: dyspnea and productive cough GI: Denies: abdominal pain : Denies: dysuria, urinary frequency or urinary urgency Musc: Denies: neck pain or back pain Skin/Breast: Denies: rash PFSH ED PFSH: Medical History Obstructive sleep apnea Major depressive disorder, recurrent, moderate Dysphoric mood Breast pain in female Genital warts Anxiety with depression ADHD Borderline personality disorder Post-traumatic stress disorder, chronic Surgical History History of surgery on lower extremity No pertinent past surgical history Family History Grandmother Hypertension Maternal grandmother Grandfather Cancer Maternal-breast Other CAD (coronary artery disease) Psychiatric illness Denies family history of Colon cancer Ovarian cancer Diabetes Clotting disorder Heart disease Hyperlipidemia Chronic kidney disease (CKD) Breast cancer Anesthesia complication Family history of thyroid problem Bleeding disorder Lung disease Uterine cancer Stroke Social History Smoking and tobacco/nicotine status: unknown if used tobacco/nicotine Quit status (tobacco/nicotine): has tried quititng Number of times tried to quit tobacco: 2 Second hand smoke exposure: No Alcohol intake: former Substance/Drug Use: never Lives independently: Yes Physical Exam Const: GENERAL APPEARANCE: cooperative ORIENTATION/CONSCIOUSNESS: Yes awake, Yes oriented to person, Yes oriented to place and Yes oriented to time HENMT: COMMON NORMALS: normocephalic, atraumatic and hearing grossly normal bilaterally HEAD & SCALP: normocephalic and atraumatic Resp: COMMON NORMALS: normal respiratory effort, No retractions, No use of accessory muscles and clear to auscultation bilaterally AUSCULTATION: clear to auscultation bilaterally Cardio: COMMON NORMALS: regular rhythm and No murmurs present (Cardio) RATE: tachycardic RHYTHM: regular rhythm GI: COMMON NORMALS: Soft to palpation and No hepatosplenomegaly present AUSCULTATION: Yes normoactive bowel sounds PALPATION: Yes Soft to palpation, No Tenderness to palpation present (GI), No Guarding due to palpation present (GI) and Yes No hepatosplenomegaly present Extremity: COMMON NORMALS: normal to inspection, capillary refill normal, no clubbing, cyanosis or edema, no calf tenderness and no pedal edema Neuro: SENSORIUM/ORIENTATION: Yes oriented to person, Yes oriented to place and Yes oriented to time Skin: COMMON NORMALS: no rashes or lesions noted GENERAL SKIN EXAM: no rashes or lesions noted Course Vital Signs: Vital signs: Vital Signs Temperature 98.9 F 05/23/24 08:42 Pulse Rate 105 H 05/23/24 08:42 Respiratory Rate 20 H 05/23/24 08:42 Blood Pressure 125/73 05/23/24 08:42 Pulse Oximetry 96 05/23/24 08:42 Oxygen Delivery Me thod Room Air 05/23/24 08:42 MDM - URI/Sore Throat Medical Decision Making Chest x-ray unremarkable COVID-positive which is consistent with presenting symptoms. Reviewed and discussed Paxlovid patient opted not to take which would agree with given she is tolerating well and it has not been terribly effective in reducing course of symptoms with recent strains. Return if has further problems. She is also given instructions for her child since she did mention she has a young child in the home likely will also develop symptoms of COVID Medical Records I reviewed the patient's medical records. Lab Data I reviewed the patient's lab results. Radiology Impressions Chest X-Ray 05/23/24 08:47 IMPRESSION: No acute findings. Laboratory Results Influenza A (PCR) Negative (Negative) 05/23/24 08:48 Influenza Type B (PCR) Negative (Negative) 05/23/24 08:48 RSV (PCR) Negative (Negative) 05/23/24 08:48 SARS-CoV-2 (PCR) Positive (Negative) A 05/23/24 08:48 All radiology interpretation(s) finalized by discharge Discharge Plan Discharge Patient Disposition: Home Clinical Impression: COVID-19 Condition: Stable Prescriptions: No Action No Known Home Medications Discharge Orders: Discharge ED (Routine); Ordered 05/23/24 Ordered By: Tony Arreguin Referrals: Ole Birmingham MD [Primary Care Provider] - Discharge Diet: Usual diet Discharge Activity: Increase activity as tolerated Patient Instructions: COVID-19 (Coronavirus Disease 2019) (ED), COVID-19 and Children (ED), Opioid Safety, Pain Management Activity Restrictions/Additional Instructions: Thank you for choosing [facility] for your healthcare needs today. It is very important that you follow up as instructed or that you return to the Emergency Department should you have concerns or if your condition changes or worsens in any way. You were seen in the emergency room with complaints of flulike symptoms. Your positive for COVID. Your vital signs were normal chest x-ray did not show any significant abnormalities. We did discuss Paxlovid you opted not to use. Paxlovid does not significantly affect course of COVID at this point. We also gave discharge instructions regarding COVID-19 and children's and she had mentioned she had a child at home. Stand Alone Forms: Work/School Release Print Language: Spanish Coding Level of Care Code ED Box Bender for Eleanor Mcnamara
[2024-05-23 09:31] LABS: Influenza A NEGATIVE (Negative); Influenza B NEGATIVE (Negative); Respiratory Syncytial Virus Ce NEGATIVE (Negative)
[2024-05-23 09:35] LABS: SARS-CoV-2 PCR Positive (Negative)
== END 2024-05-23 09:56 | disposition home or self-care (01) ==
PROVIDERS: Emergency Provider Family Medicine; PCP Family Medicine
DX: U07.1 COVID-19 (principal); Z11.52 Encounter for screening for COVID-19
CPT/HCPCS: 71045; 87637; 93005; 99284

== ENCOUNTER 2024-07-04 16:24 | Emergency (ER) | payer SELFPAY ==
[2024-07-04 16:28] VITALS: BP 114/74; PULSE 103; RESP 18; TEMP 36.2; O2SAT 96; BMI 52.9
--- NOTE | 2024-07-04 17:43 | XRR_ITS ---
PROCEDURE INFORMATION: Exam: XR Left Shoulder Exam date and time: 07/04/2024 5:50 PM Age: 29 years old Clinical indication: Pain; Shoulder; Left; Additional info: L shoulder pain. Limited rom due to pain TECHNIQUE: Imaging protocol: Radiologic exam of the left shoulder. Views: 2 or more views. COMPARISON: CR (CHEST, ) 05/23/2024 9:00 AM FINDINGS: Bones/joints: Normal. Soft tissues: Normal. XR/XR shoulder LT min 2V* [id number] IMPRESSION: No acute findings.
--- NOTE | 2024-07-04 17:54 | ED_ITS ---
HPI - Extremity Problem General: Chief complaint: Extremity Injury, Upper Stated complaint: injury to lft shoulder Time Seen by Provider: 07/04/24 17:37 Source: patient Mode of arrival: ambulatory Limitations: no limitations History of Present Illness: Patient was game of the couch, pushed with her left shoulder and it kind of gave sharp pain and slept a little bit. She is unsure if she dislocated. Reports her range movement is limited secondary to pain. Was limited worse but still has some limits at this time. Pain is a 6 out of 10. Was a 10 out of 10 at the moment it happened and then it has improved some. Started as a sharp pain. Describes shoulder as being tender. Related Data Previous Rx's ?Medication ?Instructions ?Recorded naproxen sodium 550 mg tablet 550 mg PO BID PRN pain 1 0 days #20 07/04/24 (Anaprox DS) tabs Allergies Allergy/AdvReac Type Severity Reaction Status Date / Time eggplant Allergy Intermediate ALGY-Swell Verified 07/04/24 16:33 Lip/Tongue/Throat Review of Systems General: Reports: 10 or more systems reviewed and unremarkable except in HPI and below PFSH ED PFSH: Medical History Obstructive sleep apnea Major depressive disorder, recurrent, moderate Dysphoric mood Breast pain in female Genital warts Anxiety with depression ADHD Borderline personality disorder Post-traumatic stress disorder, chronic Surgical History History of surgery on lower extremity No pertinent past surgical history Family History Grandmother Hypertension Maternal grandmother Grandfather Cancer Maternal-breast Other CAD (coronary artery disease) Psychiatric illness Denies family history of Colon cancer Ovarian cancer Diabetes Clotting disorder Heart disease Hyperlipidemia Chronic kidney disease (CKD) Breast cancer Anesthesia complication Family history of thyroid problem Bleeding disorder Lung disease Uterine cancer Stroke Social History Smoking and tobacco/nicotine status: unknown if used tobacco/nicotine Quit status (tobacco/nicotine): has tried quititng Number of times tried to quit tobacco: 2 Second hand smoke exposure: No Alcohol intake: former Substance/Drug Use: never Lives independently: Yes Physical Exam Const: COMMON NORMALS: no acute distress, average body habitus, patient oriented x3, healthy appearing, alert and well nourished GENERAL APPEARANCE: well kempt and well developed HENMT: COMMON NORMALS: normocephalic, atraumatic, external ears normal and moist oral mucous membranes HEAD & SCALP: normocephalic and atraumatic EXTERNAL EAR: Yes external ears normal Eye: COMMON NORMALS: Equal, round and reactive pupils present, EOMs intact bilaterally and conjunctivae normal CONJUNCTIVA: Yes conjunctivae normal PUPIL: Yes Equal, round and reactive pupils present Neck/C-Spine: COMMON NORMALS: full ROM, no lymphadenopathy and supple Chest: CHEST: Yes Symmetrical chest wall rise and No Surgical scars present (Chest) Resp: COMMON NORMALS: normal respiratory effort, No retractions, No use of accessory muscles and clear to auscultation bilaterally AUSCULTATION: clear to auscultation bilaterally Cardio: COMMON NORMALS: regular rate, regular rhythm, S1 normal heart sound present, S2 normal heart sound present, No gallops present (Cardio), No clicks present (Cardio), No murmurs present (Cardio) and No rub (Cardio) RATE: regular rate RHYTHM: regular rhythm HEART SOUNDS: S1 normal heart sound present, S2 normal heart sound present and no murmurs PERIPHERAL PULSES: other (Radial pulses 2+ and symmetric) Extremity: COMMON NORMALS: normal to inspection, capillary refill normal and no clubbing, cyanosis or edema NARRATIVE EXTREMITY EXAM: Left shoulder with some tenderness over the deltoid and anterior shoulder, limited range of motion especially active. Little further range of motion passive. Neurovascular intact distal to the site of pain Neuro: COMMON NORMALS: patient oriented x3 SENSORIUM/ORIENTATION: Yes alert Psych: APPEARANCE: Yes well kempt Skin: COMMON NORMALS: no rashes or lesions noted, no wounds, turgor normal and no jaundice GENERAL SKIN EXAM: no rashes or lesions noted and turgor normal Course Vital Signs: Vital signs: Vital Signs Temperature 97.1 F L 07/04/24 16:28 Pulse Rate 103 H 07/04/24 16:28 Respiratory Rate 18 07/04/24 16:28 Blood Pressure 114/74 07/04/24 16:28 Pulse Oximetry 96 07/04/24 16:28 MDM - Extremity (Nontraumatic) Medical Decision Making Left shoulder x-ray normal. P patient placed in a sling. Will give NSAIDs for home and advised patient follow-up with orthopedics. Medical Records I reviewed the patient's medical records. Lab Data I reviewed the patient's lab results. Radiology Impressions Shoulder X-Ray 07/04/24 17:43 IMPRESSION: No acute findings. All radiology interpretation(s) finalized by discharge ED provider radiology interpretation(s): xr shoulder on my review has No acute finding. Discharge Plan Discharge Patient Disposition: Home Clinical Impression: Acute pain of left shoulder Condition: Stable Prescriptions: New naproxen sodium [Anaprox DS] 550 mg tablet 550 mg PO BID PRN (Reason: pain) 10 Days Qty: 20 0RF No Action No Known Home Medications Discharge Orders: Discharge ED (Routine); Ordered 07/04/24 Ordered By: Bryant Bowser Referrals: Sherlyn Melara MD [Physician] - Ole Birmingham MD [Primary Care Provider] - Discharge Diet: Usual diet Discharge Activity: Resume usual activity and Increase activity as tolerated Patient Instructions: Shoulder Sprain (ED), Shoulder Pain (ED) Activity Restrictions/Additional Instructions: Take medication as prescribed. Use sling. Follow-up with orthopedics in 3 days to 1 week. Print Language: Cameroonian Coding Level of Care Code ED Price Accuracy Supervisor for Eleanor Mcnamara
[2024-07-04] MEDS: HYDROcodone-acetaminophen 5-325 mg Tablet 1 TAB PO (18:02)
== END 2024-07-04 21:11 | disposition home or self-care (01) ==
PROVIDERS: Emergency Provider Emergency Medicine; PCP Family Medicine
DX: M25.512 Pain in left shoulder (principal)
CPT/HCPCS: 73030; 99283; J9999

== ENCOUNTER 2024-08-22 01:28 | Emergency (ER) | payer SELFPAY ==
--- NOTE | 2024-08-22 01:39 | ECG_ITS ---
[facility] Date: 2024-08-22 Pat Name: Bryant Tony Department: Room: Gender: Female Piercer: : 1995 Requested By: Vikram Duran Order Number: [id number] Eller MD: Audi Melton M.D. Measurements Intervals [place] Rate: 94 P: 35 OR: 154 QRS: 0 QRSD: 104 T: 18 QT: 340 QTc: 426 Interpretive Statements SINUS RHYTHM LOW QRS VOLTAGE IN PRECORDIAL LEADS [QRS DEFLECTION < 1.0 mV IN CHEST LEADS] Compared to ECG 05/23/2024 08:48:36 Sinus tachycardia no longer present Myocardial infarct finding no longer present Electronically Signed On 08-25-2024 11:44:02 CDT by Audi Melton M.D. [id number] [id number]
[2024-08-22 01:44] VITALS: BP 147/93; PULSE 78; RESP 18; TEMP 36.6; O2SAT 95; BMI 60.6
--- NOTE | 2024-08-22 01:58 | CTR_ITS ---
PROCEDURE INFORMATION: Exam: CT Head Without Contrast Exam date and time: 08/22/2024 2:33 AM Age: 29 years old Clinical indication: Pain; Headache; C/O MARION; Additional info: Confusion with headache TECHNIQUE: Imaging protocol: Computed tomography of the head without contrast. Radiation optimization: All CT scans at this facility use at least one of these dose optimization techniques: automated exposure control; mA and/or kV adjustment per patient size (includes targeted exams where dose is matched to clinical indication); or iterative reconstruction. COMPARISON: CT head wo con* [id number] 02/25/2024 9:08 PM RADIATION DOSE METRICS: Total DLP (mGy-cm): 1078.63 FINDINGS: Brain: Normal. No hemorrhage. Unremarkable white matter. No mass effect. Cerebral ventricles: No ventriculomegaly. Paranasal sinuses: Visualized sinuses are unremarkable. No fluid levels. Mastoid air cells: Visualized mastoid air cells are well aerated. Bones: Unremarkable. No acute fracture. Soft tissues: Unremarkable. CT/CT head wo con* [id number] IMPRESSION: No acute intracranial abnormality.
--- NOTE | 2024-08-22 01:58 | XRR_ITS ---
PROCEDURE INFORMATION: Exam: XR Chest Exam date and time: 08/22/2024 2:12 AM Age: 29 years old Clinical indication: Chest pressure; C/O chest pain TECHNIQUE: Imaging protocol: Radiologic exam of the chest. Views: 1 view. COMPARISON: CR XR chest 1V portable [id number] 05/23/2024 9:00 AM FINDINGS: Lungs: Unremarkable. No consolidation. Pleural spaces: Unremarkable. No pleural effusion. No pneumothorax. Heart/Mediastinum: Unremarkable. No cardiomegaly. Bones/joints: Unremarkable. XR/XR chest 1V portable [id number] IMPRESSION: No acute findings.
[2024-08-22 02:36] LABS: Basophils # 0.1 10^3/uL (0.0-0.1); Basophils % 0.4 %; Eosinophils # 0.2 10^3/uL (0.0-0.8); Hematocrit 38.4 % (36-47); Lymphocytes # 2.4 10^3/uL (0.8-4.8); Lymphocytes % 20.7 %; Mean Corpuscular HGB Conc 30.7 g/dL (30-55); Mean Corpuscular Hemoglobin 24.4 pg (27-33); Mean Corpuscular Volume 79.3 fl (85-98); Mean Platelet Volume 9.7 fL (7.4-10.4); Monocytes # 0.8 10^3/uL (0.2-0.9); Monocytes % 6.6 %; Neutrophils # 7.89 10^3/uL (1.8-7.7); Neutrophils % 69.8 %; Nucleated Red Blood Cells % 0 %; Platelet Count 394 10^3/cmm (157-399); Red Blood Count 4.84 10^6/uL (3.85-5.65); Red Cell Distribution Width 14.8 % (12.1-15.1); White Blood Count 11.33 10^3/uL (3.29-11.43)
--- NOTE | 2024-08-22 02:37 | ED_ITS ---
HPI - General Adult 2 General: Chief complaint: General Medical Stated complaint: felt bad jittery shaky BP # were close L arm pain Time Seen by Provider: 08/22/24 01:39 History of Present Illness: 29-year-old female presents ER chief com plaint of several symptoms including having mild headache with generalized weakness fatigue. The patient endorses that she has a history of anxiety she been off medications for for quite some time patient reports that she has a history of high blood pressure prior to arrival her blood pressure was found to be like 170/120 patient does not report being on any current medication she has been seen at our facility several times the past for this patient reports also having some left-sided chest pain as well as left jaw pain patient reports is unclear whether or not this is her anxiety acting up or not patient also endorses [place] and nonspecific abdominal pain patient presents to the emergency department for further assessment and management. Associated symptoms: Reports chest pain, confusion, headache(s), malaise and palpitations; Deny dyspnea, nausea, rash or vomiting Related Data Previous Rx's ?Medication ?Instructions ?Recorded hydroxyzine HCl 25 mg tablet 25 mg PO TID PRN anxiety #20 tabs 08/22/24 lisinopril 10 mg tablet 10 mg PO DAILY #14 tabs 07/25 04/18 Allergies Allergy/AdvReac Type Severity Reaction Status Date / Time eggplant Allergy Intermediate ALGY-Swell Verified 07/04/24 16:33 Lip/Tongue/Throat Review of Systems 2 General: Reports: 10 or more systems reviewed and unremarkable except in HPI and below Const: Reports: fatigue and malaise; Denies: fever(s) or chills Eyes: Denies: change in vision or blurry vision Card: Reports: chest pain and palpitations Resp: Denies: dyspnea or productive cough GI: Denies: abdominal pain, nausea or vomiting : Denies: flank pain Musc: Denies: extremity pain or extremity swelling Skin/Breast: Denies: rash or pruritus Neuro: Reports: headache(s), dizziness and confusion Psych: Denies: anxiety or depression Sonido/Lymph: Denies: easy bleeding All/Imm: Denies: urticaria, throat swelling or facial swelling PFSH ED 2 PFSH: Medical History Obstructive sleep apnea Major depressive disorder, recurrent, moderate Dysphoric mood Breast pain in female Genital warts Anxiety with depression ADHD Borderline personality disorder Post-traumatic stress disorder, chronic Surgical History History of surgery on lower extremity No pertinent past surgical history Family History Grandmother Hypertension Maternal grandmother Grandfather Cancer Maternal-breast Other CAD (coronary artery disease) Psychiatric illness Denies family history of Colon cancer Ovarian cancer Diabetes Clotting disorder Heart disease Hyperlipidemia Chronic kidney disease (CKD) Breast cancer Anesthesia complication Family history of thyroid problem Bleeding disorder Lung disease Uterine cancer Stroke Social History Smoking and tobacco/nicotine status: unknown if used tobacco/nicotine Quit status (tobacco/nicotine): has tried quititng Number of times tried to quit tobacco: 2 Second hand smoke exposure: No Alcohol intake: former Substance/Drug Use: never Lives independently: Yes Physical Exam 2 Narrative: EXAM NARRATIVE: Patient appears very anxious on exam however no obvious focal neurodeficits appreciated Const: COMMON NORMALS: no acute distress, patient oriented x3 and healthy appearing HENMT: COMMON NORMALS: normocephalic and atraumatic HEAD & SCALP: n ormocephalic and atraumatic Eye: COMMON NORMALS: Equal, round and reactive pupils present and EOMs intact bilaterally PUPIL: Yes Equal, round and reactive pupils present Neck/C-Spine: COMMON NORMALS: full ROM, supple and no JVD Lymph: LYMPHATIC: no lymphadenopathy noted Chest: COMMONS NORMALS: normal inspection of the chest and normal palpation of entire chest wall Resp: COMMON NORMALS: normal respiratory effort, No retractions and clear to auscultation bilaterally EFFORT & INSPECTION: Yes able to speak in complete sentences and Yes symmetric chest movement AUSCULTATION: clear to auscultation bilaterally Cardio: COMMON NORMALS: no JVD, regular rate and regular rhythm RATE: r egular rate RHYTHM: regular rhythm GI: COMMON NORMALS: Normal to inspection, nondistended, normoactive bowel sounds present, Soft to palpation and non-tender INSPECTION: Yes normal to inspection PALPATION: Yes Soft to palpation : COMMON NORMALS: Yes no CVA tenderness BLADDER/KIDNEY EXAM: Yes no CVA tenderness Back/Pelvis: COMMON NORMALS: no CVA tenderness Extremity: COMMON NORMALS: normal to inspection and full ROM Neuro: COMMON NORMALS: patient oriented x3, CN's II-XII intact bilaterally, moves all extremities and no focal motor deficits Psych: COMMON NORMALS: mental status grossly normal, Normal thought process present, cooperative and normal affect THOUGHT PROCESS: Normal thought process present Skin: COMMON NORMALS: no rashes or lesions noted GENERAL SKIN EXAM: no rashes or lesions noted Course 2 Vital Signs: Vital signs: Vital Signs Temperature 98 F 08/22/24 01:44 Pulse Rate 96 08/22/24 04:19 Respiratory Rate 16 08/22/24 04:19 Blood Pressure 124/82 08/22/24 04:19 Pulse Oximetry 97 08/22/24 04:19 Oxygen Delivery Me thod Room Air 08/22/24 04:19 MDM - General Adult Medical Decision Making Due to patient's symptoms and condition IV established basic lab work and imaging will be obtained we will continue to follow. Advised patient due to the constellation of her symptoms it could be anxiety induced or hypertensive induced amongst other things will continue to follow Patient's initial lab work and imaging is all come back reassuring the heart rate is has also improved with time she is currently resting in the room with no obvious acute distress. Patient was probably positive for marijuana CRP was found to be elevated at 27.7 with no obvious infections or illnesses first cardiac troponin and BNP are unremarkable anticipate discharge home pending cardiac troponin #2 chest x-ray also looked unremarkable as well as CT imaging of the head. I do suspect that the patient's high blood pressure prior to arrival may have contributed to a lot of her symptoms currently. Patient's second cardiac troponin came back unremarkable alongside the first patient stable for discharge home we will repeat placing the patient on a low- dose lisinopril for her hypertension I did advise need for further follow-up with primary care in 3 to 5 days I also started the patient on a low-dose hydroxyzine for her anxiety. Advised patient to return the interim if any of her symptoms persist or worse. Lab Data 08/22/24 02:23 08/22/24 02:23 Radiology Impressions Chest X-Ray 08/22/24 01:58 IMPRESSION: No acute findings. Head CT 08/22/24 01:58 IMPRESSION: No acute intracranial abnormality. Laboratory Results WBC 11.33 10^3/uL (3.29-11.43) 08/22/24 02:23 RBC 4.84 10^6/uL (3.85-5.65) 08/22/24 02:23 Hgb 11.80 g/dL (11.27-16.99) 08/22/24 02:23 Hct 38.4 % (36-47) 08/22/24 02:23 MCV 79.3 fl (85-98) L 08/22/24 02:23 MCH 24.4 pg (27-33) L 08/22/24 02:23 MCHC 30.7 g/dL (30-55) 08/22/24 02:23 RDW 14.8 % (12.1-15.1) 08/22/24 02:23 Plt Count 394 10^3/cmm (157-399) 08/22/24 02:23 MPV 9.7 fL (7.4-10.4) 08/22/24 02:23 Neut % (Auto) 69.8 % 08/22/24 02:23 Lymph % (Auto) 20.7 % 08/22/24 02:23 A[place] % (Auto) 6.6 % 08/22/24 02:23 Eos % (Auto) 2.0 % 08/22/24 02:23 Baso % (Auto) 0.4 % 08/22/24 02:23 Neut # (Auto) 7.89 10^3/uL (1.8-7.7) H 08/22/24 02:23 Lymph # (Auto) 2.4 10^3/uL (0.8-4.8) 08/22/24 02:23 Avery # (Auto) 0.8 10^3/uL (0.2-0.9) 08/22/24 02:23 Eos # (Auto) 0.2 10^3/uL (0.0-0.8) 08/22/24 02:23 Baso # (Auto) 0.1 10^3/uL (0.0-0.1) 08/22/24 02:23 Nucleated RBC % (auto) 0 % 08/22/24 02:23 Nucleated RBCs # 0.0 /100WBC 08/22/24 02:23 Sodium 135 mmol/L (136-145) L 08/22/24 02:23 Potassium 4.0 mmol/L (3.5-5.1) 08/22/24 02:23 Chloride 100 mmol/L (98-107) 08/22/24 02:23 Carbon Dioxide 23 mmol/L (22-29) 08/22/24 02:23 Anion Gap 16.0 (5-19) 08/22/24 02:23 BUN 15 mg/dL (6-20) 08/22/24 02:23 Creatinine 0.6 mg/dL (0.5-0.9) 08/22/24 02:23 GFR Calculation 119.9 mL/min (90-130) 08/22/24 02:23 Glucose 112 mg/dL (65-115) 08/22/24 02:23 Calculated Osmolality 282 mOsm/kg (285-295) L 08/22/24 02:23 Calcium 8.9 mg/dL (8.5-10.5) 08/22/24 02:23 Total Bilirubin 0.2 mg/dL (0.15-1.2) 08/22/24 02:23 AST 11 U/L (0-32) 08/22/24 02:23 ALT 13 U/L (0-33) 08/22/24 02:23 Alkaline Phosphatase 98 U/L (35-105) 08/22/24 02:23 Troponin T Baseline < 6 ng/L (0-10) 08/22/24 02:23 Troponin T 120 Minute < 6.0 ng/L (0-10) 08/22/24 04:47 Delta Troponin T 0 ABS# (0-10) 08/22/24 04:47 C-Reactive Protein 27.7 mg/L (0.0-4.9) H 08/22/24 02:23 NT-Pro-B Natriuret Pep < 36 pg/mL (0-125) 08/22/24 02:23 Total Protein 7.2 g/dL (6.6-8.7) 08/22/24 02:23 Albumin 3.9 g/dL (3.5-5.2) 08/22/24 02:23 Globulin 3.3 g/dL (1.3-4.6) 08/22/24 02:23 Lipase 19 U/L (13-60) 08/22/24 02:23 HCG, Qual Negative (Negative) 08/22/24 03:17 Urine Color Yellow (Yellow) 08/22/24 03:17 Urine Appearance Clear (CLEAR) 08/22/24 03:17 Urine pH 5.5 (5-7) 08/22/24 03:17 Ur Specific [place] 1.008 (1.005-1.030) 08/22/24 03:17 Urine Protein Negative (Negative) 08/22/24 03:17 Urine Glucose (UA) Negative (Normal) 08/22/24 03:17 Urine Ketones Negative (Negative) 08/22/24 03:17 Urine Blood Negative (Negative) 08/22/24 03:17 Urine Nitrate Negative (Negative) 08/22/24 03:17 Urine Bilirubin Negative (Negative) 08/22/24 03:17 Urine Urobilinogen 0.2 mg/dL (Negative) 08/22/24 03:17 Ur Leukocyte Esterase Negative (Negative) 08/22/24 03:17 Urine RBC 0-2 /hpf (0-2) 08/22/24 03:17 Urine WBC 0-5 /hpf (0-5) 08/22/24 03:17 Ur Squamous Epith Cells 0-5 /hpf (0-5) 08/22/24 03:17 Amorphous Sediment Not Reportable 08/22/24 03:17 Urine Bacteria None seen /hpf (NONE) 08/22/24 03:17 Hyaline Casts 0-4 /lpf H 08/22/24 03:17 Urine Opiates Screen Negative ng/mL (Negative) 08/22/24 03:17 Ur Barbiturates Screen Negative ng/mL (Negative) 08/22/24 03:17 Ur Phencyclidine Scrn Negative ng/mL (Negative) 08/22/24 03:17 Ur Amphetamines Screen Negative ng/mL (Negative) 08/22/24 03:17 U Benzodiazepines Scrn Negative ng/mL (Negative) 08/22/24 03:17 Urine Cocaine Screen Negative ng/mL (Negative) 08/22/24 03:17 U Marijuana (THC) Screen Positive ng/mL (Negative) H 08/22/24 03:17 All radiology interpretation(s) finalized by discharge Discharge Plan Discharge Patient Disposition: Home Clinical Impression: Anxiety Chest pain Qualifiers: Chest pain type: unspecified Qualified Code(s): R07.9 - Chest pain, unspecified Hypertension Qualifiers: Hypertension type: unspecified Qualified Code(s): I10 - Essential (primary) hypertension Condition: Stable Prescriptions: New lisinopril 10 mg tablet 10 mg PO DAILY Qty: 14 0RF hydroxyzine HCl 25 mg tablet 25 mg PO TID PRN (Reason: anxiety) Qty: 20 0RF Discharge Orders: Discharge ED (Routine); Ordered 08/22/24 Ordered By: Vikram Duran Discharge Diet: Advance as tolerated Discharge Activity: Increase activity as tolerated Patient Instructions: Chest Pain (ED), Hypertension (ED), Anxiety (ED) Activity Restrictions/Additional Instructions: Take medications as prescribed please further follow-up with primary care for further assessment management and was to return the interim if any of your symptoms persist or worse. Print Language: Grenadian Coding Level of Care Code ED Bank Analyst for Eleanor Mcnamara
[2024-08-22 02:55] LABS: Troponin(5th) Baseline < 6 ng/L (0-10)
[2024-08-22 03:05] LABS: Alanine Aminotransferase 13 U/L (0-33); Albumin Level 3.9 g/dL (3.5-5.2); Alkaline Phosphatase 98 U/L (35-105); Aspartate Amino Transferase 11 U/L (0-32); Blood Urea Nitrogen 15 mg/dL (6-20); C Reactive Protein 27.7 mg/L (0.0-4.9); Calcium 8.9 mg/dL (8.5-10.5); Carbon Dioxide 23 mmol/L (22-29); Chloride 100 mmol/L (98-107); Creatinine Clr Calc Pharmacy 193.2588; Globulin 3.3 g/dL (1.3-4.6); Glomerular Filtration Rate 119.9 mL/min (90-130); Glucose 112 mg/dL (65-115); Lipase 19 U/L (13-60); NT Pro B Type Natriuretic Pept < 36 pg/mL (0-125); Osmolality Calculated 282 mOsm/kg (285-295); Sodium 135 mmol/L (136-145); Total Bilirubin 0.2 mg/dL (0.15-1.2); Total Protein 7.2 g/dL (6.6-8.7)
[2024-08-22] MEDS: sodium chloride 0.9% 1,000 ML 999 ML IV (03:11)
[2024-08-22 03:20] VITALS: BP 136/78; PULSE 106; RESP 16; O2SAT 98
[2024-08-22 03:33] LABS: Bilirubin Urine Negative (Negative); Blood Urine Negative (Negative); Glucose Urine UA Negative (Normal); Ketones Urine Negative (Negative); Leukocyte Esterase Urine Negative (Negative); Nitrate Urine Negative (Negative); Protein Urine Negative (Negative); Specific Gravity, Urine 1.008 (1.005-1.030); Urine Appearance Clear (CLEAR); Urine Color Yellow (Yellow); Urobilinogen Urine 0.2 mg/dL (Negative); pH Urine 5.5 (5-7)
[2024-08-22 03:38] LABS: Add Urine Microscopic? YES; Bacteria Urine None Seen /hpf; Hyaline Casts Urine 0-4 /lpf; RBC Urine 0-2 /hpf (0-2); Squamous Epithelial Cell Urine 0-5 /hpf (0-5); WBC Urine 0-5 /hpf (0-5)
[2024-08-22 03:40] LABS: Amphetamines Screen Urine Negative (Negative); Barbiturates Screen Urine Negative (Negative); Benzodiazepines Screen Urine Negative (Negative); Cocaine Screen Urine Negative (Negative); HCG Qualitative Urine. Negative (Negative); Opiate Screen Urine Negative (Negative); PCP Screen Urine Negative (Negative); THC Screen Urine Positive (Negative)
[2024-08-22 04:19] VITALS: BP 124/82; PULSE 96; RESP 16; O2SAT 97
[2024-08-22 05:08] LABS: Troponin 5 2HR < 6.0 ng/L (0-10); Troponin 5 2HR Delta 0 ABS# (0-10)
[2024-08-22 05:35] VITALS: BP 124/82; PULSE 96; RESP 16; O2SAT 94
== END 2024-08-22 05:36 | disposition home or self-care (01) ==
PROVIDERS: Emergency Provider Emergency Medicine
DX: F41.9 Anxiety disorder, unspecified (principal); R07.9 Chest pain, unspecified; I10 Essential (primary) hypertension; Z72.0 Tobacco use
CPT/HCPCS: 36415; 70450; 71045; 80053; 80306; 81001; 81025; 83690; 83880; 84484; 85025; 86140; 93005; 99285; J7030

== ENCOUNTER 2024-11-24 15:31 | Emergency (ER) | payer SELFPAY ==
--- OUTSIDE RECORDS SUMMARY | 2024-11-24 15:36 | XMS_ITS | Clinical Summary ---
Author Organization [facility] Address [address] [place] [address] Phone Care Team Providers Care Guide Name Role Phone Unavailable Primary Care Provider Unavailabl e Allergies No known active allergies Medications No known medications Social History Tobacco Use Types Packs/Day Years Used Date Smoking Tobacco: Never Smokeless Tobacco: Never Tobacco Cessation:Counseling Given: Not Answered Alcohol Use Standard Drinks/Week Comments Yes 0 (1 standard drink = 0.6 oz pur e alcohol) Comments Unknown Sex and Gender Information Value Date Recorded Sex Assigned at Not on file Legal Sex Female 12:12 AM [employer] Gender Identity Not on file Sexual Orientation Not on file Last Filed Vital Signs Vital Sign Reading Time Taken Comments Blood Pressure 115/77 03/08/2022 1:00 AM [employer] TRA[employer] Pulse 92 03/08/2022 1:00 AM SUPERVIS[employer] TRA[employer] Temperature 36.2 C (97.2 F) 03/08/2022 12:15 AM [employer] TRA[employer] Respiratory Rate 18 03/08/2022 1:00 AM SUPER[employer]OR TRA[employer] Oxygen Saturation 95% 03/08/2022 1:00 AM SUPER[employer] TRA[employer] Inhaled Oxygen Concentration - - Weight 122.2 kg (269 lb 8 oz) 03/08/2022 12:15 A M [employer] Height 157.5 cm (5' 2 ) 03/08/2022 12:15 AM [employer]PER[employer] TRA[employer] Body Mass Index 49.29 03/08/2022 12:15 AM SUPER[employer]OR TRA[employer] TRA[employer]ER Plan of Treatment Health Maintenance Due Date Last Done Comments DTAP/TDAP/TD VACCINES (1 - Tdap) 01/15/2016 HEPATITIS B VACCINES (1 of 3 - 19+ 3-dose series) 12/24 CERVICAL CANCER SCREENING 2018 HPV/Cotest (21-29) 2018 PAP SMEAR 2018 HPV VACCINES (1 - 3-dose SCDM series) 01/15/2024 INFLUENZA VACCINE (#1) 2024 Insurance MEDICAID [place]
[2024-11-24 15:38] VITALS: BP 129/87; PULSE 96; TEMP 37.1; O2SAT 96
--- NOTE | 2024-11-24 16:48 | CTR_ITS ---
PROCEDURE INFORMATION: Exam: CT Abdomen And Pelvis With Contrast Exam date and time: 11/24/2024 6:49 PM Age: 29 years old Clinical indication: Abdominal pain; Acute; Additional info: Ruq pain TECHNIQUE: Imaging protocol: Computed tomography of the abdomen and pelvis with contrast. Axial, coronal and sagittal reformatted images were created and reviewed. Radiation optimization: All CT scans at this facility use at least one of these dose optimization techniques: automated exposure control; mA and/or kV adjustment per patient size (includes targeted exams where dose is matched to clinical indication); or iterative reconstruction. Contrast material: OMNI 350; Contrast volume: 100 ml; Contrast route: INTRAVENOUS (IV); COMPARISON: CT abdomen pelvis wo con [id number] 04/07/2019 9:57 AM RADIATION DOSE METRICS: Total DLP (mGy-cm): 1404.43 FINDINGS: Diaphragm: Elevated left hemidiaphragm. Liver: Mild hepatomegaly. Diffuse hepatic steatosis. Gallbladder and biliary ducts: No radiodense gallstones. No biliary ductal dilatation. Pancreas: Unremarkable. Spleen: Mild splenomegaly. Adrenal glands: Normal. No mass. Kidneys and ureters: No mass. No radiodense calculi. No hydronephrosis. Stomach and bowel: No bowel wall thickening. No obstruction. No pneumatosis. Appendix: Normal. Intraperitoneal space: No free fluid. No organized fluid collection. No free air. Vasculature: Unremarkable. No aneurysm. Lymph nodes: No pathologically enlarged lymph nodes. Urinary bladder: Unremarkable as visualized. Reproductive: Unremarkable. Bones/joints: No acute osseous abnormality. Soft tissues: Small, fat containing umbilical hernia. CT/CT abdomen pelvis w con* [id number]: 1[address] No CT evidence of acute intra-abdominal or pelvic pathology. 2. Additional findings, as above.
--- NOTE | 2024-11-24 16:54 | ED_ITS ---
HPI - General Adult 2 General: Chief complaint: Abdominal Pain Stated complaint: abd pain Time Seen by Provider: 11/24/24 16:35 History of Present Illness: 29yo F w/cc of 3 days of upper abd pain, n/v for 3 days. Patient has not had a fever and denies shortness of breath, cough or hemoptysis. Patient states that she had heavy steak 3 days ago and symptoms started shortly after. Patient had initially experienced diarrhea but only had 1 stool today without blood. Patient denies any dysuria or hematuria. She denies any pelvic pain, abnormal vaginal discharge. She does not have any history of abdominal surgeries. Related Data Home Medications ?Medication ?Instructions ?Recorded ?Confirmed No Known Home Medications 11/21/2410/25 Allergies Allergy/AdvReac Type Severity Reaction Status Date / Time eggplant Allergy Intermediate ALGY-Swell Verified 11/24/24 15:42 Lip/Tongue/Throat PFS ED 2 PFSH: Medical History (Updated 11/24/24 @ 20:24 by Bernie Herrera MD) Obstructive sleep apnea Major depressive disorder, recurrent, moderate Dysphoric mood Breast pain in female Genital warts Anxiety with depression ADHD Borderline personality disorder Post-traumatic stress disorder, chronic Surgical History History of surgery on lower extremity No pertinent past surgical history Family History Grandmother Hypertension Maternal grandmother Grandfather Cancer Maternal-breast Other CAD (coronary artery disease) Psychiatric illness Denies family history of Colon cancer Ovarian cancer Diabetes Clotting disorder Heart disease Hyperlipidemia Chronic kidney disease (CKD) Breast cancer Anesthesia complication Family history of thyroid problem Bleeding disorder Lung disease Uterine cancer Stroke Social History Smoking and tobacco/nicotine status: current every day tobacco/nicotine user e- cigarettes E-Cigarette Details: vaporizer device and with nicotine E-cig/vape details: 5 % Quit status (tobacco/nicotine): has tried quititng Number of times tried to quit tobacco: 2 Second hand smoke exposure: No Alcohol intake: former Substance/Drug Use: never Lives independently: Yes Physical Exam 2 Narrative: EXAM NARRATIVE: Vitals were reviewed. Patient is alert, oriented and hemodynamically stable. Patient is morbidly obese. She has clear lung sounds bilaterally, normal heart sounds. Patient does have tenderness especially in the upper abdomen in the epigastrium and right upper quadrant. Her abdomen is diffusely tender but not consistent with peritonitis. Patient reports pain with percussion of the right flank. No lower extremity swelling or edema. Course 2 Vital Signs: Vital signs: Vital Signs Temperature 98.8 F 11/24/24 15:38 Pulse Rate 89 11/24/24 18:00 Respiratory Rate 20 H 11/24/24 18:00 Blood Pressure 141/91 11/24/24 20:00 Pulse Oximetry 93 11/24/24 20:00 Oxygen Delivery Me thod Room Air 11/24/24 20:00 MDM - General Adult Medical Decision Making 29-year-old female with a chief complaint of upper abdomen pain, nausea and vomiting and diarrhea that started after eating a heavy steak. Differential diagnosis includes, but is not limited to, pancreatitis, cholecystitis, gastroenteritis, appendicitis, urinary tract infection, pyelonephritis, nephrolithiasis, SBO, diverticulitis, other. On initial exam, patient is hemodynamically stable and nontoxic appearing. Patient was evaluated with CBC, CMP, lipase, UA and CT abd/pelvis. Patient was treated with IV morphine and Zofran for pain. Patient does have an elevated white blood cell count of 17. She does not have any actionable electrolyte abnormalities and has normal kidney and liver function, troponin is within normal limits. There is no evidence of heart failure. test is negative. UA demonstrates 3+ bacteria and 1+ leukocyte esterase but it is a quite contaminated sample and in any case patient did not report urinary symptoms. Patient has a normal white blood cell count and is mildly anemic but this is comparable to baseline. CT scan does not show acute findings. There are some incidental findings of small umbilical hernia and hepatic steatosis. Patient is appropriate for outpatient follow-up. She was counseled on supportive care measures at home, given return precautions and discharged in stable condition. Lab Data 11/24/24 17:28 11/24/24 17:28 Radiology Impressions Abdomen/Pelvis CT 11/24/24 16:[address]: 1[address] No [address] evidence of acute intra-abdominal or pelvic pathology. 2. Additional findings, as above. Laboratory Results WBC 16.56 10^3/uL (3.29-11.43) H 11/24/24 17: RBC 5.01 10^6/uL (3.85-5.65) 11/24/24 17: Hgb 12.50 g/dL (11.27-16.99) 11/24/24 17: Hct 41.0 % (36-47) 11/24/24 17: MCV 81.8 fl (85-98) L 11/24/24 17: MCH 25.0 pg (27-33) L 11/24/24 17: MCHC 30.5 g/dL (30-55) 11/24/24 17: RDW 15.6 % (12.1-15.1) H 11/24/24: Plt Count 383 10^3/cmm (157-399) 11/24/24: MPV 10.0 fL (7.4-10.4) 11/24/24 17: Neut % (Auto) 70.8 % 11/24/24 17: Lymph % (Auto) 22.3 % 11/24/24 17:28 [place] % (Auto) 4.7 % 11/24/24 17: Eos % (Auto) 1.0 % 11/24/24 17: Baso % (Auto) 0.4 % 11/24/24: Neut # (Auto) 11.72 10^3/uL (1.8-7.7) H 11/24/24 17: Lymph # (Auto) 3.7 10^3/uL (0.8-4.8) 11/24/24 17: [place] # (Auto) 0.8 10^3/uL (0.2-0.9) 11/24/24 17: Eos # (Auto) 0.2 10^3/uL (0.0-0.8) 11/24/24 17: Baso # (Auto) 0.1 10^3/uL (0.0-0.1) 11/24/24 17: Nucleated RBC % (auto) 0 % 11/24/24 17: Nucleated RBCs # 0.0 /100WBC 11/24/24 17: Sodium 136 mmol/L (136-145) 11/24/24 17: Potassium 3.9 mmol/L (3.5-5.1) 11/24/24 17:28 Chloride 102 mmol/L (98-107) 11/24/24 17:28 Carbon Dioxide 21 mmol/L (22-29) L 11/24/24 17:28 Anion Gap 16.9 (5-19) 11/24/24 17:28 BUN 15 mg/dL (6-20) 11/24/24 17:28 Creatinine 0.7 mg/dL (0.5-0.9) 11/24/24 17:28 GFR Calculation 100.4 mL/min (90-130) 11/24/24 17:28 Glucose 83 mg/dL (65-115) 11/24/24 17:28 Calculated Osmolality 282 mOsm/kg (285-295) L 11/24/24 17:28 Calcium 8.8 mg/dL (8.5-10.5) 11/24/24 17:28 Total Bilirubin 0.3 mg/dL (0.15-1.2) 11/24/24 17:28 AST 10 U/L (0-32) 11/24/24 17:28 ALT 14 U/L (0-33) 11/24/24 17:28 Alkaline Phosphatase 81 U/L (35-105) 11/24/24 17:28 Total Protein 6.9 g/dL (6.6-8.7) 11/24/24 17:28 Albumin 3.5 g/dL (3.5-5.2) 11/24/24 17:28 Globulin 3.4 g/dL (1.3-4.6) 11/24/24 17:28 Lipase 15 U/L (13-60) 11/24/24 17:28 Ser , Semi-Qnt < 1.00 mIU/mL 11/24/24 17:28 Urine Color Yellow (Yellow) 11/24/24 18:18 Urine Appearance Cloudy (CLEAR) A 11/24/24 18:18 Urine pH 5.5 (5-7) 11/24/24 18:18 Ur Specific [place] 1.018 (1.005-1.030) 11/24/24 18:18 Urine Protein Negative (Negative) 11/24/24 18:18 Urine Glucose (UA) Negative (Normal) 11/24/24 18:18 Urine Ketones Negative (Negative) 11/24/24 18:18 Urine Blood Negative (Negative) 11/24/24 18:18 Urine Nitrate Negative (Negative) 11/24/24 18:18 Urine Bilirubin Negative (Negative) 11/24/24 18:18 Urine Urobilinogen 0.2 mg/dL (Negative) 11/24/24 18:18 Ur Leukocyte Esterase 1+ (Negative) A 11/24/24 18:18 Urine RBC 0-2 /hpf (0-2) 11/24/24 18:18 Urine WBC 0-5 /hpf (0-5) 11/24/24 18:18 Ur Squamous Epith Cells 11-20 /hpf (0-5) H 11/24/24 18:18 Amorphous Sediment Not Reportable 11/24/24 18:18 Urine Bacteria 3+ /hpf (NONE) H 11/24/24 18:18 Hyaline Casts 0.81 /lpf 11/24/24 18:18 All radiology interpretation(s) finalized by discharge Discharge Plan Discharge Patient Disposition: Home Clinical Impression: Abdominal pain Qualifiers: Abdominal location: right upper quadrant Qualified Code(s): R10.11 - Right upper quadrant pain Condition: Stable Prescriptions: No Action No Known Home Medications Discharge Orders: Discharge ED (Routine); Ordered 11/24/24 Ordered By: Bernie Herrera Patient Instructions: Abdominal Pain (ED), Opioid Safety, Pain Management, Patient Portal & Lauren Instructions Activity Restrictions/Additional Instructions: Please continue to monitor your condition closely at home. Take Ibuprofen 400mg and Tylenol 500-1000mg every six hours for pain and inflammation. If your condition worsens or additional concerns arise, please return promptly to the emergency department for reassessment. Follow up with your primary care doctor in one week. Print Language: Upper Sorbian Coding Level of Care Code ED Guide Tour for Eleanor Mcnamara
[2024-11-24] MEDS: ondansetron 2 mg/ML SDV 2 mL 4 MG IVP (17:35)
[2024-11-24] MEDS: morphine 4 mg/mL SDV 1 mL IVP (17:35)
[2024-11-24 17:41] LABS: Hematocrit 41.0 % (36-47); Hemoglobin 12.50 g/dL (11.27-16.99); Mean Corpuscular HGB Conc 30.5 g/dL (30-55); Mean Corpuscular Hemoglobin 25.0 pg (27-33); Mean Corpuscular Volume 81.8 fl (85-98); Nucleated Red Blood Cells % 0 %; Platelet Count 383 10^3/cmm (157-399); Red Blood Count 5.01 10^6/uL (3.85-5.65); White Blood Count 16.56 10^3/uL (3.29-11.43)
[2024-11-24 18:00] VITALS: BP 137/82; PULSE 89; RESP 20; O2SAT 97
[2024-11-24 18:19] LABS: Alanine Aminotransferase 14 U/L (0-33); Albumin Level 3.5 g/dL (3.5-5.2); Alkaline Phosphatase 81 U/L (35-105); Aspartate Amino Transferase 10 U/L (0-32); Blood Urea Nitrogen 15 mg/dL (6-20); Calcium 8.8 mg/dL (8.5-10.5); Carbon Dioxide 21 mmol/L (22-29); Chloride 102 mmol/L (98-107); Creatinine Clr Calc Pharmacy 164.9590; Globulin 3.4 g/dL (1.3-4.6); Glucose 83 mg/dL (65-115); Lipase 15 U/L (13-60); Osmolality Calculated 282 mOsm/kg (285-295); Sodium 136 mmol/L (136-145); Total Protein 6.9 g/dL (6.6-8.7)
[2024-11-24 18:20] LABS: Anion Gap 16.9 (5-19); Potassium 3.9 mmol/L (3.5-5.1)
[2024-11-24] MEDS: iohexol 350 mg/mL 500 mL Btl (per mL) IV (18:55)
[2024-11-24 19:19] LABS: Glucose Urine UA Negative (Normal); Nitrate Urine Negative (Negative); Specific Gravity, Urine 1.018 (1.005-1.030)
[2024-11-24 19:36] VITALS: BP 122/73; O2SAT 95
[2024-11-24 19:41] LABS: UA Slide Review UA Slide Review Perf
[2024-11-24 20:00] VITALS: BP 141/91; O2SAT 93
== END 2024-11-24 21:09 | disposition home or self-care (01) ==
PROVIDERS: Emergency Provider Emergency Medicine
DX: R10.11 Right upper quadrant pain (principal); F17.290 Nicotine dependence, other tobacco product, uncomplicated
CPT/HCPCS: 36415; 74177; 80053; 81001; 83690; 84702; 85025; 87086; 96374; 96375; 99285; J2270; J2405

== ENCOUNTER → 2024-12-24 16:53 | Outpatient (BNVA) | payer SELFPAY | DX: J02.9 Acute pharyngitis, unspecified (principal) | CPT/HCPCS: 87400; 87426 ==